=== PATIENT | female | born 1970 | race Caucasian/White ===

== ENCOUNTER 2017-08-18 23:18 | Emergency (ER) | payer BC ==
--- NOTE | 2017-08-18 23:35 | EDPHYS ---
Physician Documentation [facility] Name: Shyann Alicia Age: 47 yrs Sex: Female : 1970 Arrival Date: 08/18/2017 Time: 23:20 Bed 5 Private MD: ED Physician Travis Pandya HPI: 08/19 01:39 This 47 yrs old Female presents to ER via Ambulatory with complaints of Back snw Pain, Neck Pain, <24hrs Old. 01:39 The patient presents with pain that is acute, with no known mechanism of injury. The snw symptoms are located in the "everywhere". Onset: The symptoms/episode began/occurred gradually. The pain does not radiate. Associated signs and symptoms: Pertinent positives: fatigue. The problem was sustained without known cause. Severity of symptoms: At their worst the symptoms were moderate. The patient has experienced similar episodes in the past, chronically, today's symptoms are similar. sees Chiropractor regularly. Historical: - Allergies: 08/18 23:37 No Known Allergies; mg2 - Home Meds: 23:37 None [Active]; mg2 - PMHx: 23:37 Endometrosis; mg2 - PSHx: 23:37 cyst on ovary removed; mg2 - Immunization history:: Flu vaccine is not up to date. - Social history:: Smoking status: Patient/guardian denies using tobacco. ROS: 08/19 01:35 Constitutional: Negative for fever, chills, and weight loss, fatigue and just "hurt all snw over" Eyes: Negative for injury, pain, redness, and discharge, Neck: Negative for injury, pain, and swelling, Cardiovascular: Negative for chest pain, palpitations, and edema, Respiratory: Negative for shortness of breath, cough, wheezing, and pleuritic chest pain, Abdomen/GI: Negative for abdominal pain, nausea, vomiting, diarrhea, and constipation, Back: Negative for injury and pain, : Negative for injury, bleeding, discharge, and swelling, Skin: Negative for injury, rash, and discoloration, Neuro: Negative for headache, weakness, numbness, tingling, and seizure. ENT: Positive for ear pain. MS/extremity: Positive for decreased range of motion, pain, of the from posterior neck all the way down to right leg/foot. Exam: 01:35 Constitutional: This is a well developed, well nourished patient who is awake, alert, snw and in no acute distress. Head/Face: Normocephalic, atraumatic. Eyes: Pupils equal round and reactive to light, extra-ocular motions intact. Lids and lashes normal. Conjunctiva and sclera are non-icteric and not injected. Cornea within normal limits. Periorbital areas with no swelling, redness, or edema. ENT: Nares patent. No nasal discharge, no septal abnormalities noted. Tympanic membrane to right normal, left TM erythematous and fluid filled, and external auditory canals are clear. Oropharynx with no redness, swelling, or masses, exudates, or evidence of obstruction, uvula midline. Mucous membranes moist. Neck: Trachea midline, no thyromegaly or masses palpated, and no cervical lymphadenopathy. Supple, full range of motion without nuchal rigidity, or vertebral point tenderness. No Meningismus. Chest/axilla: Normal chest wall appearance and motion. Nontender with no deformity. No lesions are appreciated. Cardiovascular: Regular rate and rhythm with a normal S1 and S2. No gallops, murmurs, or rubs. Normal PMI, no JVD. No pulse deficits. Respiratory: Lungs have equal breath sounds bilaterally, clear to auscultation and percussion. No rales, rhonchi or wheezes noted. No increased work of breathing, no retractions or nasal flaring. Abdomen/GI: Soft, non-tender, with normal bowel sounds. No distension or tympany. No guarding or rebound. No evidence of tenderness throughout. Back: No spinal tenderness. No costovertebral tenderness. Full range of motion. Skin: Warm, dry with normal turgor. Normal color with no rashes, no lesions, and no evidence of cellulitis. MS/ Extremity: Pulses equal, no cyanosis. Neurovascular intact. Full, normal range of motion but holding herself stiffly on walking to and from exam room Neuro: Awake and alert, GCS 15, oriented to person, place, time, and situation. Cranial nerves II-XII grossly intact. Motor strength 5/5 in all extremities. Sensory grossly intact. Cerebellar exam normal. Normal gait. 01:38 Neuro: Exam negative for acute changes. snw Vital Signs: 08/18 23:39 BP 175 / 97; Pulse 80; Resp 18; Temp 97.9; Pulse Ox 99% ; mg2 [place] Coma Score: 08/19 01:38 Eye Response: spontaneous(4). Verbal Response: oriented(5). Motor Response: obeys snw commands(6). Total: 15. MDM: 08/18 23:33 Patient medically screened. snw 08/19 01:38 Data reviewed: vital signs, nurses notes. Data interpreted: Pulse oximetry: on room air snw is 99 %. Interpretation: normal. Counseling: I had a detailed discussion with the patient and/or guardian regarding: the historical points, exam findings, and any diagnostic results supporting the discharge/admit diagnosis, the presence of at least one elevated blood pressure reading (>120/80) during this emergency department visit, the need for outpatient follow up, to return to the emergency department if symptoms worsen or persist or if there are any questions or concerns that arise at home. Special discussion: I have referred the patient to see his PCP for further evaluation of high blood pressure. Based on the history and exam findings, there is no indication for further emergent testing or inpatient evaluation. I discussed with the patient/guardian the need to see the primary care provider for further evaluation of the symptoms. Administered Medications: 08/18 23:55 Drug: TORadol 60 mg Route: IM; Site: right gluteus; mg2 08/19 00:14 Follow up: Response: No adverse reaction; Medication administered at discharge. mg2 08/18 23:55 Drug: Flexeril 10 mg Route: PO; mg2 08/19 00:13 Follow up: Response: No adverse reaction; Medication administered at discharge. mg2 08/18 23:55 Drug: Zithromax 500 mg Route: PO; mg2 08/19 00:13 Follow up: Response: No adverse reaction; Medication administered at discharge. mg2 Disposition: 02:38 Co-signature as Attending Physician, Travis Pandya MD. rn Disposition: 08/18/17 23:35 Discharged to Home. Impression: Myalgia, Acute serous otitis media, recurrent, left ear. - Condition is Stable. - Discharge Instructions: Serous Otitis Media, Musculoskeletal Pain, Cryotherapy, Heat Therapy. - Prescriptions for Zithromax 500 mg Oral Tablet - take 1 tablet by ORAL route once daily for 5 days; 5 tablet. Diclofenac Sodium 75 mg Oral Tablet, Delayed Release (E.C.) - take 1 tablet by ORAL route 2 times per day as needed for pain; 30 tablet. - Work release form, Medication Reconciliation Form, Thank You Letter, Antibiotic Education, Prescription Opioid Use form. - Follow up: Private Physician; When: 1 - 2 days; Reason: Recheck today's complaints, Continuance of care, Re-evaluation by your physician. Follow up: Emergency Department; When: As needed; Reason: Worsening of condition. Signatures: Juliann Reyes, RN FIELD CASE MANAGER-C RN FIELD CASE MANAGER-Csnw Travis Pandya MD MD rn Brayan Hermosillo RN RN mg2
[2017-08-18] MEDS ORDERED: KETOROLAC 30 MG/ML INJ ONE ×2 (23:47→23:49)
[2017-08-18] MEDS ORDERED: CYCLOBENZAPRINE 10 MG TAB ONE ×2 (23:47→23:48)
--- NOTE | 2017-08-19 00:13 | ER ---
Nurse's Notes [facility] Name: Shyann Alicia Age: 47 yrs Sex: Female : 1970 Arrival Date: 08/18/2017 Time: 23:20 Bed 5 Private MD: Diagnosis: Myalgia;Acute serous otitis media, recurrent, left ear Presentation: 08/18 23:31 Presenting complaint: Patient states: she woke up this morning with a pain in her neck mg2 radiating to the right leg. no prior history of trauma. States, "Normally I go to the chiropractor for this but it's Saturday and they're closed,.". Transition of care: patient was not received from another setting of care. Onset of symptoms was August 18, 2017 at 07:00. Initial Sepsis Screen: Does the patient meet any 2 criteria? No. Patient's initial sepsis screen is negative. Does the patient have a suspected source of infection? No. Patient's initial sepsis screen is negative. Care prior to arrival: None. 23:31 Method Of Arrival: Ambulatory mg2 23:31 Acuity: LONG 4 mg2 Triage Assessment: 23:58 General: Behavior is calm, cooperative. mg2 Historical: - Allergies: 23:37 No Known Allergies; mg2 - Home Meds: 23:37 None [Active]; mg2 - PMHx: 23:37 Endometrosis; mg2 - PSHx: 23:37 cyst on ovary removed; mg2 - Immunization history:: Flu vaccine is not up to date. - Social history:: Smoking status: Patient/guardian denies using tobacco. Screenin:56 Abuse screen: Denies threats or abuse. Denies injuries from another. Nutritional mg2 screening: No deficits noted. Tuberculosis screening: No symptoms or risk factors identified. Fall Risk None identified. Assessment: 23:40 General: Appears in no apparent distress. comfortable. Pain: Complains of pain in neck mg2 radiating to the right leg Pain radiates to right leg Quality of pain is described as aching, Pain began upon waking up Is continuous, Alleviated by medications. Neuro: Level of Consciousness is awake, alert, obeys commands, Oriented to person, place, time, situation. Cardiovascular: Patient's skin is warm and dry. Respiratory: Airway is patent Respiratory effort is even, unlabored, Respiratory pattern is regular, symmetrical. GI: No signs and/or symptoms were reported involving the gastrointestinal system. : No signs and/or symptoms were reported regarding the genitourinary system. EENT: No signs and/or symptoms were reported regarding the EENT system. Derm: No signs and/or symptoms reported regarding the dermatologic system. Musculoskeletal: Musculoskeletal: Circulation, motion, and sensation intact. Capillary refill < 3 seconds, Range of motion: intact in all extremities, Reports pain in neck since morning. 08/19 00:09 Reassessment: Patient appears in no apparent distress at this time. Patient is alert, mg2 oriented x 3, equal unlabored respirations, skin warm/dry/pink. Discussed d/c \\T\\ f/u instructions with pt; denies questions or concerns at this time. Vital Signs: 08/18 23:39 BP 175 / 97; Pulse 80; Resp 18; Temp 97.9; Pulse Ox 99% ; mg2 Kelin Coma Score: 08/19 01:38 Eye Response: spontaneous(4). Verbal Response: oriented(5). Motor Response: obeys snw commands(6). Total: 15. ED Course: 08/18 23:20 Patient arrived in ED. am2 23:29 Juliann Reyes FNP-C [facility] snw 23:29 Travis Pandya MD is Attending Physician. snw 23:31 Brayan Hermosillo, BABATUNDE is Primary Nurse. mg2 23:35 Triage completed. mg2 23:56 Patient has correct armband on for positive identification. Noise minimized. mg2 23:57 No provider procedures requiring assistance completed. mg2 08/19 00:12 Patient did not have IV access during this emergency room visit. mg2 Administered Medications: 08/18 23:55 Drug: TORadol 60 mg Route: IM; Site: right gluteus; mg2 08/19 00:14 Follow up: Response: No adverse reaction; Medication administered at discharge. mg2 08/18 23:55 Drug: Flexeril 10 mg Route: PO; mg2 08/19 00:13 Follow up: Response: No adverse reaction; Medication administered at discharge. mg2 08/18 23:55 Drug: Zithromax 500 mg Route: PO; mg2 08/19 00:13 Follow up: Response: No adverse reaction; Medication administered at discharge. mg2 Outcome: 08/18 23:35 Discharge ordered by . snw 08/19 00:12 Discharged to home ambulatory. mg2 Condition: good Discharge instructions given to patient, Instructed on discharge instructions, follow up and referral plans. medication usage, Demonstrated understanding of instructions, follow-up care, medications, Prescriptions given X 2. 00:13 Patient left the ED. mg2 Signatures: Juliann Reyes, BISCUIT FACTORY WORKER-C BISCUIT FACTORY WORKER-Csnw Inessa Pham am2 Brayan Hermosillo RN RN mg2 Corrections: (The following items were deleted from the chart) 08/18 23:44 23:40 Musculoskeletal: mg2 mg2
== END 2017-08-19 00:13 | disposition home or self-care (01) ==
LOC: ER 23:18
DX: M79.1 Myalgia (principal); H65.02 Acute serous otitis media, left ear
CPT/HCPCS: 96372; 99283

== ENCOUNTER 2017-08-30 14:06 | Emergency (ER) | payer BC ==
[2017-08-30 17:27] LABS: Absolute Monocytes 0.5 K/uL (0.1-1.3); Absolute Neutrophil 4.3 K/uL (1.8-8.0); Basophils % 0.6 % (0-1.3); Eosinophils % 3.5 % (0-4.4); Lymphocytes % 28.5 % (15.3-44.8); MCH 30.2 pg (27.0-35.0); MPV 9.8 fL (7.6-11.3); Monocytes % 6.9 % (3.3-12.3); RBC Red Blood Cell Count 4.61 M/uL (3.86-4.86)
[2017-08-30 17:36] LABS: Bicarbonate 29 mEq/L (21-31); Glucose Level 89 mg/dL (65-120); Lipase 23 U/L (22-51); Potassium 3.7 mEq/L (3.6-5.0); Sodium Level 140 mEq/L (135-145)
[2017-08-30 17:42] LABS: ALT/SGPT 27 IU/L (10-60); AST/SGOT 25 IU/L (10-42); Albumin 4.2 g/dL (3.2-5.5); Alkaline Phosphatase 78 IU/L (42-121); Amylase Level 46 U/L (28-100); BUN Blood Urea Nitrogen 12 mg/dL (6-20); Bilirubin Direct < 0.1 mg/dL (0-0.2); Bilirubin Total 0.4 mg/dL (0.3-1.2); Protein, Total 7.1 g/dL (6.0-8.3)
[2017-08-30 17:56] LABS: HCG, Quantitative < 5.0 mIU/mL (<5)
[2017-08-30] MEDS ORDERED: MAGNE/ALUM HYDROXD 30 ML UCUP ONE (18:16)
[2017-08-30] MEDS ORDERED: LIDOCAINE VISCOUS 2% SOLN 15 ML UDC ONE (18:16)
[2017-08-30] MEDS ORDERED: PANTOPRAZOLE 40 MG INJ ONE (19:26)
--- NOTE | 2017-08-30 20:52 | EDPHYS ---
Physician Documentation [facility] Name: Shyann Alicia Age: 47 yrs Sex: Female : 1970 Arrival Date: 08/30/2017 Time: 14:09 Bed 15 Private MD: Dario Oviedo R ED Physician James Dash HPI: 08/30 20:09 This 47 yrs old Female presents to ER via Ambulatory with complaints of Chest kb Tightness. 20:09 The patient presents with abdominal pain in the right upper quadrant. Onset: The kb symptoms/episode began/occurred 2 week(s) ago. The symptoms radiate to mid-sternal area and epigastric area. Associated signs and symptoms: none. The symptoms are described as burning. Modifying factors: The symptoms are alleviated by nothing, the symptoms are aggravated by certain foods. Severity of pain: At its worst the pain was moderate in the emergency department the pain is unchanged. The patient has experienced similar episodes in the past, chronically. The patient has not recently seen a physician. Pt states she has had RUQ pain that radiates to epigastric area and up throat for 2 weeks and it has been getting worse. States she has had this several times in the past and last time she came here they gave her a cocktail that helped the pain. States the GERD medication that is OTC doesn't work very well and she would like a prescription for Protonix. 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 - Social history:: Smoking status: Patient/guardian denies using tobacco. ROS: 20:07 Constitutional: Negative for fever, chills, and weight loss, Cardiovascular: Negative kb for chest pain, palpitations, and edema, Respiratory: Negative for shortness of breath, cough, wheezing, and pleuritic chest pain, Back: Negative for injury and pain, : Negative for injury, bleeding, discharge, and swelling, MS/Extremity: Negative for injury and deformity, Skin: Negative for injury, rash, and discoloration, Neuro: Negative for headache, weakness, numbness, tingling, and seizure. 20:07 Abdomen/GI: Positive for Negative for nausea, vomiting, and diarrhea, constipation, abdominal cramps, abdominal distension, anorexia. Exam: 20:07 Constitutional: This is a well developed, well nourished patient who is awake, alert, kb and in no acute distress. Head/Face: Normocephalic, atraumatic. ENT: Nares patent. No nasal discharge, no septal abnormalities noted. Tympanic membranes are normal and external auditory canals are clear. Oropharynx with no redness, swelling, or masses, exudates, or evidence of obstruction, uvula midline. Mucous membranes moist. Neck: Trachea midline, no thyromegaly or masses palpated, and no cervical lymphadenopathy. Supple, full range of motion without nuchal rigidity, or vertebral point tenderness. No Meningismus. Chest/axilla: Normal chest wall appearance and motion. Nontender with no deformity. No lesions are appreciated. Cardiovascular: Regular rate and rhythm with a normal S1 and S2. No gallops, murmurs, or rubs. Normal PMI, no JVD. No pulse deficits. Respiratory: Lungs have equal breath sounds bilaterally, clear to auscultation and percussion. No rales, rhonchi or wheezes noted. No increased work of breathing, no retractions or nasal flaring. Abdomen/GI: Soft, non-tender, with normal bowel sounds. No distension or tympany. No guarding or rebound. No evidence of tenderness throughout. Back: No spinal tenderness. No costovertebral tenderness. Full range of motion. Skin: Warm, dry with normal turgor. Normal color with no rashes, no lesions, and no evidence of cellulitis. MS/ Extremity: Pulses equal, no cyanosis. Neurovascular intact. Full, normal range of motion. Neuro: Awake and alert, GCS 15, oriented to person, place, time, and situation. Cranial nerves II-XII grossly intact. Motor strength 5/5 in all extremities. Sensory grossly intact. Cerebellar exam normal. Normal gait. Vital Signs: 14:17 BP 133 / 77; Pulse 75; Resp 17; Temp 98.0; Pulse Ox 98% on R/A; Weight 99.34 kg; Height aj 5 ft. 6 in. (167.64 cm); 17:24 BP 118 / 75; Pulse 78; Resp 17; Pulse Ox 98% on R/A; mh5 18:30 BP 127 / 72; Pulse 76; Resp 18; Pulse Ox 99% on R/A; ph 19:29 BP 114 / 74; Pulse 74; Resp 16; Pulse Ox 100% on R/A; Pain 0/10; ao 20:18 BP 116 / 72; Pulse 76; Resp 18; Pulse Ox 99% on R/A; Pain 0/10; ao 14:17 Body Mass Index 35.35 (99.34 kg, 167.64 cm) aj MDM: 16:11 Patient medically screened. kb 20:08 Data reviewed: vital signs, nurses notes. Data interpreted: Pulse oximetry: on room air kb is 100 %. Interpretation: normal. Counseling: I had a detailed discussion with the patient and/or guardian regarding: the historical points, exam findings, and any diagnostic results supporting the discharge/admit diagnosis, lab results, the need for outpatient follow up, a family practitioner, to return to the emergency department if symptoms worsen or persist or if there are any questions or concerns that arise at home. 08/30 16:21 Order name: Amylase, Serum; Complete Time: 18:04 kb 08/30 16:21 Order name: Basic Metabolic Panel; Complete Time: 18:04 kb 08/30 16:21 Order name: CBC with Diff; Complete Time: 17:36 kb 08/30 16:21 Order name: Hepatic Function; Complete Time: 18:04 kb 08/30 16:21 Order name: Lipase; Complete Time: 18:04 kb 08/30 16:21 Order name: Troponin (emerg Dept Use Only); Complete Time: 17:44 kb 08/30 16:21 Order name: EKG; Complete Time: 16:22 kb 08/30 16:21 Order name: Quantitative Hcg; Complete Time: 18:04 kb 08/30 18:47 Order name: Troponin (emerg Dept Use Only) kb 08/30 18:48 Order name: Troponin (Emerg Dept Use Only); Complete Time: 20:51 EDMS 08/30 20:48 Order name: Urine Dipstick--Ancillary (enter results) cc 08/30 20:49 Order name: Urine Dipstick-Ancillary EDMS 08/30 16:21 Order name: IV Saline Lock; Complete Time: 19:55 kb 08/30 16:21 Order name: Labs collected and sent; Complete Time: 19:55 kb 08/30 16:21 Order name: Urine Dipstick-Ancillary (obtain specimen); Complete Time: 20:47 kb 08/30 16:21 Order name: EKG - Nurse/Tech; Complete Time: 18:21 kb 08/30 18:47 Order name: EKG - Nurse/Tech; Complete Time: 19:53 kb 08/30 18:47 Order name: EKG; Complete Time: 18:48 kb Administered Medications: 18:35 Drug: GI Cocktail without - (Maalox Suspension 30 ml, Lidocaine Liquid 2 % 15 ph ml) Route: PO; 19:16 Follow up: Response: No adverse reaction ph 19:32 Drug: ProTONIX 40 mg Route: IVP; Site: right antecubital; ao 20:36 Follow up: Response: No adverse reaction ao Disposition: 08/30/17 20:51 Discharged to Home. Impression: Gastro-esophageal reflux disease. - Condition is Stable. - Discharge Instructions: Gastroesophageal Reflux Disease, Adult. - Prescriptions for Protonix 40 mg Oral Tablet - take 1 tablet by ORAL route once daily; 30 tablet. - Medication Reconciliation Form, Thank You Letter, Antibiotic Education, Prescription Opioid Use form. - Follow up: Emergency Department; When: As needed; Reason: Worsening of condition. Follow up: Private Physician; When: 2 - 3 days; Reason: Recheck today's complaints, Continuance of care, Re-evaluation by your physician. Addendum: 09/02/2017 08:52 Co-signature as Attending Physician, James Dash MD I agree with the assessment and c flynn plan of care. Signatures: Dispatcher [employer] Odette Gruber, MUD WORKER-C MUD WORKER-Ckb Inessa Lepe RN RN aj Anderson, Corey, MD MD cha Hall, Patricia, RN RN ph Ortiz, Alex, RN RN ao Corrections: (The following items were deleted from the chart) 08/30 21:00 20:51 08/30/2017 20:51 Discharged to Home. Impression: Gastro-esophageal reflux ao disease. Condition is Stable. Discharge Instructions: Gastroesophageal Reflux Disease, Adult. Prescriptions for Protonix 40 mg Oral Tablet - take 1 tablet by ORAL route once daily; 30 tablet. and Forms are Medication Reconciliation Form, Thank You Letter, Antibiotic Education, Prescription Opioid Use. Follow up: Emergency Department; When: As needed; Reason: Worsening of condition. Follow up: Private Physician; When: 2 - 3 days; Reason: Recheck today's complaints, Continuance of care, Re-evaluation by your physician. kb
--- NOTE | 2017-08-30 20:52 | ER ---
Nurse's Notes [facility] Name: Shyann Alicia Age: 47 yrs Sex: Female : 1970 Arrival Date: 08/30/2017 Time: 14:09 Bed 15 Private MD: Dario Oviedo R Diagnosis: Gastro-esophageal reflux disease Presentation: 08/30 14:15 Presenting complaint: Patient states: Esophageal burning that moves to RUQ that started aj today, states "it feels like indigestion." Patient reports sensation feels like tightness and burning. Transition of care: patient was not received from another setting of care. Onset of symptoms was August 30, 2017. Initial Sepsis Screen: Does the patient meet any 2 criteria? No. Patient's initial sepsis screen is negative. Does the patient have a suspected source of infection? No. Patient's initial sepsis screen is negative. Care prior to arrival: None. 14:15 Method Of Arrival: Ambulatory 14:15 Acuity: LONG 3 aj Triage Assessment: 14:17 General: Appears in no apparent distress. comfortable, Behavior is calm, cooperative, aj appropriate for age. Pain: Complains of pain in chest. Neuro: Level of Consciousness is awake, alert, obeys commands, Oriented to person, place, time, situation. Cardiovascular: Capillary refill < 3 seconds in bilateral fingers Patient's skin is warm and dry. Respiratory: Airway is patent Respiratory effort is even, unlabored, Respiratory pattern is regular, symmetrical. GI: Reports upper abdominal pain, epigastric pain, gaseousness, indigestion. Derm: Skin is intact, is healthy with good turgor, Skin is pink, warm \\T\\ dry. normal. 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 - Social history:: Smoking status: Patient/guardian denies using tobacco. Screenin:27 Abuse screen: Denies threats or abuse. Denies injuries from another. Nutritional iw screening: No deficits noted. Tuberculosis screening: No symptoms or risk factors identified. 17:34 Fall Risk None identified. ph Assessment: 16:19 General: Appears in no apparent distress. Behavior is calm, cooperative. iw 16:26 Pain: Complains of pain in diaphragm, right breast and left breast Pain radiates to iw abdomen Pain Quality of pain is described as burning, Pain began. Neuro: Level of Consciousness is awake, alert, obeys commands, Oriented to person, place, time, situation. Cardiovascular: Patient's skin is warm and dry. Respiratory: Respiratory effort is even, unlabored, Respiratory pattern is regular, symmetrical. GI: Abdomen is non-distended, obese, Reports epigastric pain. Derm: Skin is pink, warm \\T\\ dry. normal. Musculoskeletal: Range of motion: intact in all extremities. 17:33 Reassessment: Patient appears in no apparent distress at this time. Patient and/or ph family updated on plan of care and expected duration. Pain level reassessed. Patient is alert, oriented x 3, equal unlabored respirations, skin warm/dry/pink. Pt resting quietly, awaiting lab results. 18:36 Reassessment: Patient appears in no apparent distress at this time. Patient and/or ph family updated on plan of care and expected duration. Pain level reassessed. Patient is alert, oriented x 3, equal unlabored respirations, skin warm/dry/pink. 19:29 General: Appears in no apparent distress. comfortable, Behavior is calm, cooperative. ao Pain: Denies pain. Neuro: Level of Consciousness is awake, alert, obeys commands, Oriented to person, place, time, situation, Appropriate for age Moves all extremities. Speech is normal, Pupils are PERRLA. Cardiovascular: Patient's skin is warm and dry. Respiratory: Airway is patent Respiratory effort is even, unlabored, Respiratory pattern is regular, symmetrical. GI: Abdomen is obese. : No signs and/or symptoms were reported regarding the genitourinary system. EENT: No signs and/or symptoms were reported regarding the EENT system. Derm: No signs and/or symptoms reported regarding the dermatologic system. Skin is pink, warm \\T\\ dry. normal, Skin temperature is warm. Musculoskeletal: Range of motion: intact in all extremities. 20:18 Reassessment: Patient appears in no apparent distress at this time. Patient and/or ao family updated on plan of care and expected duration. Pain level reassessed. Patient is alert, oriented x 3, equal unlabored respirations, skin warm/dry/pink. Troponin was send. Was told by day shift that it was done and called lab they stated they never received. It was send back again. Provider and patient had been notified of waiting time. 20:58 Reassessment: Patient Dc home ambulatory. Patient understand the POC and to follow up ao with PCP. Patient was upset with the time taken to be discharge. Vital Signs: 14:17 BP 133 / 77; Pulse 75; Resp 17; Temp 98.0; Pulse Ox 98% on R/A; Weight 99.34 kg; Height aj 5 ft. 6 in. (167.64 cm); 17:24 BP 118 / 75; Pulse 78; Resp 17; Pulse Ox 98% on R/A; mh5 18:30 BP 127 / 72; Pulse 76; Resp 18; Pulse Ox 99% on R/A; ph 19:29 BP 114 / 74; Pulse 74; Resp 16; Pulse Ox 100% on R/A; Pain 0/10; ao 20:18 BP 116 / 72; Pulse 76; Resp 18; Pulse Ox 99% on R/A; Pain 0/10; ao 14:17 Body Mass Index 35.35 (99.34 kg, 167.64 cm) aj ED Course: 14:09 Patient arrived in ED. mr 14:09 Dario Oviedo MD is Private Physician. mr 14:17 Triage completed. aj 14:17 Arm band placed on left wrist. Patient placed in waiting room, Patient notified of wait aj time. EKG completed in triage. Results shown to MD. 16:11 Odette French FNP-C is PHCP. kb 16:11 James Dash MD is Attending Physician. kb 16:23 Clara Skinner, BABATUNDE is Primary Nurse. ph 17:33 Patient has correct armband on for positive identification. Placed in gown. Bed in low ph position. Call light in reach. Side rails up X 1. residential monitor on. Pulse ox on. NIBP on. Warm blanket given. 17:34 Patient maintains SpO2 saturation greater than 95% on room air. ph 17:35 Initial lab(s) drawn, by me, sent to lab. Inserted saline lock: 20 gauge in right mh5 antecubital area, using aseptic technique. Blood collected. 18:39 No provider procedures requiring assistance completed. ph 19:45 EKG done, by ED staff, reviewed by Odette BENITES. eb 20:36 Troponin (emerg Dept Use Only) Sent. ao 20:58 IV discontinued, intact, bleeding controlled, No redness/swelling at site. Pressure ao dressing applied. Administered Medications: 18:35 Drug: GI Cocktail without - (Maalox Suspension 30 ml, Lidocaine Liquid 2 % 15 ph ml) Route: PO; 19:16 Follow up: Response: No adverse reaction ph 19:32 Drug: ProTONIX 40 mg Route: IVP; Site: right antecubital; ao 20:36 Follow up: Response: No adverse reaction ao Outcome: 20:51 Discharge ordered by . kb 20:58 Discharged to home ambulatory. ao 20:58 Condition: stable 20:58 Discharge instructions given to patient, Instructed on discharge instructions, follow up and referral plans. Demonstrated understanding of instructions, follow-up care, medications, Prescriptions given X 1. 21:00 Patient left the ED. ao Signatures: Odette French, KAMARI MEDEROS-Inessa Hardin, RN RN Bryanna Padilla Irene, RN Clara Echavarria RN RN Fer Jones, RN Bryanna [facility] Angela Manriquez Corrections: (The following items were deleted from the chart) 16:27 16:19 General: Appears in no apparent distress. Behavior is calm, cooperative, iw iw
[2017-08-30 21:19] LABS: Urine Blood NEGATIVE (NEG); Urine Glucose NEGATIVE (NEG); Urine Protein NEGATIVE (NEG); Urine Specific Gravity 1.015 (1.005-1.030)
--- NOTE | 2017-08-31 06:57 | EKG ---
Test Date: 2017-08-30 Test Time: 19:45:54 Turning Sander Operator: YANELY MEASUREMENT RESULTS: Intervals: Rate: 59 FL: 168 QRSD: 90 QT: 418 QTc: 413 Merrill: P: 58 FL: 168 QRS: 86 T: 29 INTERPRETIVE STATEMENTS: Sinus bradycardia Otherwise normal ECG Compared to ECG 07/28/2016 15:13:05 Sinus rhythm no longer present Electronically Signed On 08-31-17 06:57:22 CDT by Bebeto Kim
--- NOTE | 2017-09-01 15:26 | EKG ---
Test Date: 2017-08-30 Test Time: 16:26:29 Environmental Laboratory Technician: JEFERSON MEASUREMENT RESULTS: Intervals: Rate: 63 AL: 162 QRSD: 92 QT: 410 QTc: 419 Heber: P: 40 AL: 162 QRS: 56 T: 27 INTERPRETIVE STATEMENTS: Normal sinus rhythm Normal ECG Compared to ECG 07/28/2016 15:13:05 No significant changes Electronically Signed On 09-01-17 15:24:47 CDT by Bebeto Kim
== END 2017-08-30 21:00 | disposition home or self-care (01) ==
LOC: ER 14:06
DX: K21.9 Gastro-esophageal reflux disease without esophagitis (principal); I10 Essential (primary) hypertension
CPT/HCPCS: 36415; 80048; 80076; 81003; 82150; 83690; 84484; 84702; 85025; 93005; 96374; 99285; C9113

== ENCOUNTER 2017-11-02 14:33 | Emergency (ER) | payer BC ==
[2017-11-02] MEDS ORDERED: KETOROLAC 30 MG/ML INJ ONE (15:48)
--- NOTE | 2017-11-02 15:48 | EDPHYS ---
Physician Documentation [facility] Name: Shyann Alicia Age: 47 yrs Sex: Female : 1970 Arrival Date: 11/02/2017 Time: 14:35 Bed 23 Private MD: ED Physician James Dash HPI: 11/02 15:40 This 47 yrs old Female presents to ER via Ambulatory with complaints of Back cp Pain. 15:40 The patient presents with pain that is acute, with no known mechanism of injury, and cp tenderness. The symptoms are located in the left low back. Onset: The symptoms/episode began/occurred 1 week(s) ago. The pain does not radiate. Associated signs and symptoms: Pertinent positives: intermittent numbness of left foot and left hand, Pertinent negatives: abdominal pain, constipation, dysuria, fever, incontinence, urinary retention, weakness. Historical: - Allergies: 15:09 No Known Allergies; sv - Home Meds: 15:09 valsartan Oral [Active]; Protonix Oral [Active]; sv - PMHx: 15:09 GERD; Hypertension; sv - PSHx: 15:09 None; sv - Immunization history:: Adult Immunizations up to date. - Social history:: Smoking status: Patient/guardian denies using tobacco. - Ebola Screening: : No symptoms or risks identified at this time. ROS: 15:41 Eyes: Negative for injury, pain, redness, and discharge. cp 15:41 Constitutional: Negative for body aches, chills, fever, poor PO intake. 15:41 ENT: Negative for drainage from ear(s), ear pain, sore throat, difficulty swallowing, difficulty handling secretions. 15:41 Neck: Negative for pain with movement, pain at rest, stiffness, tenderness, bony tenderness. 15:41 Cardiovascular: Negative for chest pain, edema, palpitations. 15:41 Respiratory: Negative for cough, shortness of breath, wheezing. 15:41 Abdomen/GI: Negative for abdominal pain, nausea, vomiting, and diarrhea, constipation, bowel incontinence. 15:41 Back: Positive for pain at rest, of the left low back, Negative for injury or acute deformity. 15:41 : Negative for urinary symptoms, bladder incontinence. 15:41 Skin: Negative for cellulitis, rash. 15:41 Neuro: Positive for intermittent numbness of left hand and left foot, Negative for altered mental status, gait disturbance, headache, weakness, saddle anesthesia. 15:41 All other systems are negative. Exam: 15:44 Head/Face: Normocephalic, atraumatic. cp 15:44 Constitutional: The patient appears in no acute distress, alert, awake, non-diaphoretic, non-toxic, well developed, well nourished. 15:44 Eyes: Periorbital structures: appear normal, Conjunctiva: normal, no exudate, no injection, Lids and lashes: appear normal, bilaterally. 15:44 ENT: External ear(s): are unremarkable, Nose: is normal, Mouth: is normal, Posterior pharynx: is normal, airway is patent, no erythema, no exudate. 15:44 Neck: ROM/movement: is normal, is supple, without pain, no range of motions limitations, no nuchal rigidity. 15:44 Chest/axilla: Inspection: normal. 15:44 Cardiovascular: Rate: normal. 15:44 Respiratory: the patient does not display signs of respiratory distress, Respirations: normal, no use of accessory muscles, no retractions, no splinting, no tachypnea, labored breathing, is not present. 15:44 Abdomen/GI: Exam negative for discomfort, distension, guarding, Inspection: abdomen appears normal. 15:44 Back: pain, that is mild, of the left low back, ROM is painful, vertebral tenderness, is not appreciated. 15:44 Musculoskeletal/extremity: Exam is negative for bony tenderness, decreased range of motion, deformity, injury. 15:44 Skin: cellulitis, is not appreciated, no rash present. 15:44 Neuro: Orientation: to person, place \T\ time. Cerebellar function: is grossly normal, Motor: moves all fours, strength is normal, Gait: is steady. Vital Signs: 15:10 BP 115 / 79; Pulse 65; Resp 20; Temp 97.4; Pulse Ox 98% ; Weight 99.79 kg; Height 5 ft. sv 6 in. (167.64 cm); Pain 10/10; 15:10 Body Mass Index 35.51 (99.79 kg, 167.64 cm) sv MDM: 15:19 Patient medically screened. cp 15:30 Differential diagnosis: sciatica, spinal stenosis, cauda equina. cp 15:46 Data reviewed: vital signs, nurses notes, and as a result, I will discharge patient. 15:46 Counseling: I had a detailed discussion with the patient and/or guardian regarding: the cp historical points, exam findings, and any diagnostic results supporting the discharge/admit diagnosis, the need for outpatient follow up, a family practitioner, to return to the emergency department if symptoms worsen or persist or if there are any questions or concerns that arise at home. 11/02 15:51 Order name: Urine Dipstick--Ancillary (enter results) eb 11/02 15:51 Order name: Urine --Ancillary (enter results) eb 11/02 15:29 Order name: Urine Dipstick-Ancillary (obtain specimen); Complete Time: 15:45 cp 11/02 15:29 Order name: Urine Test (obtain specimen); Complete Time: 15:45 cp Administered Medications: 15:49 Drug: TORadol 60 mg Route: IM; Site: right deltoid; rv 16:08 Follow up: Response: No adverse reaction; Pain is decreased rv Disposition: 11/03 06:41 Co-signature as Attending Physician, James Dash MD I agree with the assessment and [facility] plan of care. Disposition: 11/02/17 15:47 Discharged to Home. Impression: Sciatica, left side. - Condition is Stable. - Discharge Instructions: Sciatica. - Prescriptions for Cyclobenzaprine 10 mg Oral Tablet - take 1 tablet by ORAL route every 8 hours As needed no driving while taking medication; 20 tablet. Medrol (Brock) 4 mg Oral Tablets, Dose Pack - take 1 tablet by ORAL route as directed - follow package instructions; 1 packet. - Work release form, Medication Reconciliation Form, Thank You Letter, Antibiotic Education, Prescription Opioid Use form. - Follow up: Private Physician; When: 2 - 3 days; Reason: Recheck today's complaints. - Problem is new. - Symptoms have improved. Signatures: Dispatcher [employer] Padmini Caldera RN James Mack MD MD cha Page, Corey, PA PA cp Vicente, Ronaldo, RN RN rv Corrections: (The following items were deleted from the chart) 11/02 16:09 15:47 11/02/2017 15:47 Discharged to Home. Impression: Sciatica, left side. Condition rv is Stable. Forms are Medication Reconciliation Form, Thank You Letter, Antibiotic Education, Prescription Opioid Use. Follow up: Private Physician; When: 2 - 3 days; Reason: Recheck today's complaints. Problem is new. Symptoms have improved. cp
--- NOTE | 2017-11-02 15:48 | ER ---
Nurse's Notes [facility] Name: Shyann Alicia Age: 47 yrs Sex: Female : 1970 Arrival Date: 11/02/2017 Time: 14:35 Bed 23 Private MD: Diagnosis: Sciatica, left side Presentation: 11/02 15:08 Presenting complaint: Patient states: left low back pain, numbness to left foot and sv hand reported. Pt reports her back went out last week. Transition of care: patient was not received from another setting of care. Onset of symptoms was October 2017. Care prior to arrival: None. 15:08 Method Of Arrival: Ambulatory sv 15:08 Acuity: LONG 4 sv Historical: - Allergies: 15:09 No Known Allergies; sv - Home Meds: 15:09 valsartan Oral [Active]; Protonix Oral [Active]; sv - PMHx: 15:09 GERD; Hypertension; sv - PSHx: 15:09 None; sv - Immunization history:: Adult Immunizations up to date. - Social history:: Smoking status: Patient/guardian denies using tobacco. - Ebola Screening: : No symptoms or risks identified at this time. Assessment: 16:07 General: Appears in no apparent distress. comfortable, Behavior is calm, cooperative. rv Pain: Complains of pain in back Pain currently is 10 out of 10 on a pain scale. Neuro: Level of Consciousness is awake, alert, obeys commands, Oriented to person, place, time, situation. Cardiovascular: Heart tones S1 S2 present. Respiratory: Airway is patent. GI: No signs and/or symptoms were reported involving the gastrointestinal system. : No signs and/or symptoms were reported regarding the genitourinary system. EENT: No signs and/or symptoms were reported regarding the EENT system. Derm: Skin is intact. Vital Signs: 15:10 BP 115 / 79; Pulse 65; Resp 20; Temp 97.4; Pulse Ox 98% ; Weight 99.79 kg; Height 5 ft. sv 6 in. (167.64 cm); Pain 10/10; 15:10 Body Mass Index 35.51 (99.79 kg, 167.64 cm) sv ED Course: 14:35 Patient arrived in ED. as 15:09 Triage completed. sv 15:09 Arm band placed on left wrist. sv 15:19 [facility]. cp 15:19 James Dash MD is Attending Physician. cp Administered Medications: 15:49 Drug: TORadol 60 mg Route: IM; Site: right deltoid; rv 16:08 Follow up: Response: No adverse reaction; Pain is decreased rv Outcome: 15:47 Discharge ordered by . cp 16:09 Patient left the ED. rv Signatures: Padmini Arguello RN RN sv Anay Guzman as James Alamo PA PA cp Iron Dawn RN RN rv Corrections: (The following items were deleted from the chart) 15:11 15:10 Pulse 65bpm; Resp 20bpm; Pulse Ox 98%; Temp 97.4F; 99.79 kg; Height 5 ft. 6 in.; sv BMI: 35.5; Pain 10/10; sv
[2017-11-02 15:56] LABS: Urine Blood NEGATIVE (NEG); Urine Glucose NEGATIVE (NEG); Urine Protein NEGATIVE (NEG)
== END 2017-11-02 16:09 | disposition home or self-care (01) ==
LOC: ER 14:33
DX: M54.32 Sciatica, left side (principal); I10 Essential (primary) hypertension
CPT/HCPCS: 81003; 81025; 96372; 99282

== ENCOUNTER 2017-12-07 08:31 | Emergency (ER) | payer BC ==
--- NOTE | 2017-12-07 08:59 | EDPHYS ---
Physician Documentation [facility] Name: Shyann Alicia Age: 47 yrs Sex: Female : 1970 Arrival Date: 12/07/2017 Time: 08:37 Bed 18 Private MD: ED Physician Eduard Gray HPI: 12/07 08:56 This 47 yrs old Female presents to ER via Ambulatory with complaints of High kb Blood Pressure. 08:56 The patient has elevated blood pressure and discovered this at home. Onset: The kb symptoms/episode began/occurred 2 day(s) ago. Modifying factors: The symptoms are aggravated by discontinuation of meds, Valsartan. Associated signs and symptoms: Pertinent positives: dizziness, headache, Pertinent negatives: chest pain, dyspnea, lightheadedness, nausea, visual changes, vomiting, weakness. Severity of symptoms: At its worst the blood pressure was 190 mm Hg, in the emergency department the blood pressure is improved. The patient has not experienced similar symptoms in the past. The patient has not recently seen a physician. Pt states she normally takes valsartan daily. Got a call from the pharmacy on Saturday saying to stop medication because it was recalled. Pt states her bp has been fluctuating, highest of 190 systolic. States she gets dizzy and a headache when it is up that high. Will follow up with Dr Oviedo next week, but wants something to keep her bp down until then. . 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 - Social history:: Smoking status: Patient/guardian denies using tobacco. - Ebola Screening: : Patient negative for fever greater than or equal to 101.5 degrees Fahrenheit, and additional compatible Ebola Virus Disease symptoms Patient denies exposure to infectious person Patient denies travel to an Ebola-affected area in the 21 days before illness onset No symptoms or risks identified at this time. ROS: 08:56 Constitutional: Negative for fever, chills, and weight loss, Cardiovascular: Negative kb for chest pain, palpitations, and edema, Respiratory: Negative for shortness of breath, cough, wheezing, and pleuritic chest pain, Abdomen/GI: Negative for abdominal pain, nausea, vomiting, diarrhea, and constipation, MS/Extremity: Negative for injury and deformity, Skin: Negative for injury, rash, and discoloration. 08:56 Neuro: Positive for dizziness, headache, symptoms when bp is high. Exam: 08:56 Constitutional: This is a well developed, well nourished patient who is awake, alert, kb and in no acute distress. Head/Face: Normocephalic, atraumatic. Eyes: Pupils equal round and reactive to light, extra-ocular motions intact. Lids and lashes normal. Conjunctiva and sclera are non-icteric and not injected. Cornea within normal limits. Periorbital areas with no swelling, redness, or edema. ENT: Nares patent. No nasal discharge, no septal abnormalities noted. Tympanic membranes are normal and external auditory canals are clear. Oropharynx with no redness, swelling, or masses, exudates, or evidence of obstruction, uvula midline. Mucous membranes moist. Chest/axilla: Normal chest wall appearance and motion. Nontender with no deformity. No lesions are appreciated. Cardiovascular: Regular rate and rhythm with a normal S1 and S2. No gallops, murmurs, or rubs. Normal PMI, no JVD. No pulse deficits. Respiratory: Lungs have equal breath sounds bilaterally, clear to auscultation and percussion. No rales, rhonchi or wheezes noted. No increased work of breathing, no retractions or nasal flaring. Abdomen/GI: Soft, non-tender, with normal bowel sounds. No distension or tympany. No guarding or rebound. No evidence of tenderness throughout. Skin: Warm, dry with normal turgor. Normal color with no rashes, no lesions, and no evidence of cellulitis. MS/ Extremity: Pulses equal, no cyanosis. Neurovascular intact. Full, normal range of motion. Neuro: Awake and alert, GCS 15, oriented to person, place, time, and situation. Cranial nerves II-XII grossly intact. Motor strength 5/5 in all extremities. Sensory grossly intact. Cerebellar exam normal. Normal gait. Vital Signs: 08:49 BP 146 / 76; Pulse 80; Resp 18; Pulse Ox 97% on R/A; Weight 99.79 kg; Height 5 ft. 6 em in. (167.64 cm); Pain 0/10; 09:15 BP 136 / 79; Pulse 78; Resp 16; Pulse Ox 99% on R/A; em 08:49 Body Mass Index 35.51 (99.79 kg, 167.64 cm) em MDM: 08:39 Patient medically screened. kb 08:54 Data reviewed: vital signs, nurses notes. Data interpreted: Pulse oximetry: on room air kb is 97 %. Interpretation: normal. Counseling: I had a detailed discussion with the patient and/or guardian regarding: the historical points, exam findings, and any diagnostic results supporting the discharge/admit diagnosis, the need for outpatient follow up, a family practitioner, to return to the emergency department if symptoms worsen or persist or if there are any questions or concerns that arise at home. Physician consultation: Dario Oviedo MD was contacted at 08:54, regarding consult, patient's condition, and will see patient in office, next week, Wants Avapro 300mg PO daily started and pt to follow up in office next week. Administered Medications: No medications were administered Disposition: 15:58 Co-signature as Attending Physician, Eduard Gray MD. Disposition: 12/07/17 08:59 Discharged to Home. Impression: Essential (primary) hypertension. - Condition is Stable. - Discharge Instructions: Hypertension, [id number]. - Prescriptions for Avapro 300 mg Oral tablet - take 1 tablet by ORAL route once daily for 30 days; 30 tablet. - Work release form, Medication Reconciliation Form, Thank You Letter, Antibiotic Education, Prescription Opioid Use form. - Follow up: Emergency Department; When: As needed; Reason: Worsening of condition. Follow up: Private Physician; When: 2 - 3 days; Reason: Recheck today's complaints, Continuance of care, Re-evaluation by your physician. Signatures: Odette French FNP-C LINER MACHINE OPERATOR-Dario Olivas, TECHNICAL ARTIST TECHNICAL ARTIST Eduard Gray MD MD Corrections: (The following items were deleted from the chart) 09:16 08:59 12/07/2017 08:59 Discharged to Home. Impression: Essential (primary) em hypertension. Condition is Stable. Forms are Medication Reconciliation Form, Thank You Letter, Antibiotic Education, Prescription Opioid Use. Follow up: Emergency Department; When: As needed; Reason: Worsening of condition. Follow up: Private Physician; When: 2 - 3 days; Reason: Recheck today's complaints, Continuance of care, Re-evaluation by your physician. kb
--- NOTE | 2017-12-07 08:59 | ER ---
Nurse's Notes [facility] Name: Shyann Alicia Age: 47 yrs Sex: Female : 1970 Arrival Date: 12/07/2017 Time: 08:37 Bed 18 Private MD: Diagnosis: Essential (primary) hypertension Presentation: 12/07 08:44 Acuity: LONG 4 aa5 08:45 Presenting complaint: Patient states: pt stopped taking medication on Saturday due to a em recall on Valsartan, pt c/o dizziness and headache that started yesterday, BP was 190 systolic when taken at home, denies CP. Transition of care: patient was not received from another setting of care. Onset of symptoms was December 02, 2017. Risk Assessment: Do you want to hurt yourself or someone else? Patient reports no desire to harm self or others. Initial Sepsis Screen: Does the patient meet any 2 criteria? No. Patient's initial sepsis screen is negative. Does the patient have a suspected source of infection? No. Patient's initial sepsis screen is negative. Care prior to arrival: None. 08:45 Method Of Arrival: Ambulatory em Triage Assessment: 08:49 General: Appears in no apparent distress. comfortable, Behavior is cooperative, em anxious. Pain: Denies pain. 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 - Social history:: Smoking status: Patient/guardian denies using tobacco. - Ebola Screening: : Patient negative for fever greater than or equal to 101.5 degrees Fahrenheit, and additional compatible Ebola Virus Disease symptoms Patient denies exposure to infectious person Patient denies travel to an Ebola-affected area in the 21 days before illness onset No symptoms or risks identified at this time. Screenin:07 Abuse screen: Denies threats or abuse. Nutritional screening: No deficits noted. em Tuberculosis screening: No symptoms or risk factors identified. Fall Risk None identified. Assessment: 09:08 General: Appears in no apparent distress. comfortable, Behavior is cooperative, em anxious. Pain: Denies pain. Neuro: Level of Consciousness is awake, alert, obeys commands, Oriented to person, place, time, situation, Reports headache. Cardiovascular: Denies chest pain, nausea, vomiting, Capillary refill < 3 seconds. Respiratory: Airway is patent Respiratory effort is even, unlabored, Respiratory pattern is regular, symmetrical. GI: Patient currently denies nausea, vomiting. : No signs and/or symptoms were reported regarding the genitourinary system. EENT: No signs and/or symptoms were reported regarding the EENT system. Derm: Skin is intact, Skin is pink, warm \T\ dry. Musculoskeletal: Range of motion: intact in all extremities. 09:08 Reassessment: I agree with assessment completed by Dairo Aldana LVN. . Neuro: Living Supervisor are aa5 equal bilaterally Moves all extremities. Full function Gait is steady, Speech is normal, Facial symmetry appears normal, Pupils are PERRLA. Vital Signs: 08:49 BP 146 / 76; Pulse 80; Resp 18; Pulse Ox 97% on R/A; Weight 99.79 kg; Height 5 ft. 6 em in. (167.64 cm); Pain 0/10; 09:15 BP 136 / 79; Pulse 78; Resp 16; Pulse Ox 99% on R/A; em 08:49 Body Mass Index 35.51 (99.79 kg, 167.64 cm) em ED Course: 08:37 Patient arrived in ED. mr 08:39 Odette French FNP-C is [facility]. kb 08:39 Eduard Gray MD is Attending Physician. kb 08:41 Dario Aldana LVN is Primary Nurse. em 08:45 Triage completed. aa5 08:49 Arm band placed on. em 09:07 Patient has correct armband on for positive identification. Bed in low position. Call em light in reach. 09:07 No provider procedures requiring assistance completed. Patient did not have IV access em during this emergency room visit. Administered Medications: No medications were administered Outcome: 08:59 Discharge ordered by . kb 09:16 Discharged to home ambulatory. em 09:16 Condition: good 09:16 Discharge instructions given to patient, Instructed on discharge instructions, follow up and referral plans. medication usage, Demonstrated understanding of instructions, follow-up care, medications, Prescriptions given X 1. 09:16 Patient left the ED. em Signatures: Odette French FNP-C BILLING CLINICIAN-Ckb Bryanna Gruber mr Jovan, Dario, TITLE SPECIALIST TITLE SPECIALIST Yadira Bruce, RN RN aa5
== END 2017-12-07 09:16 | disposition home or self-care (01) ==
LOC: ER 08:31
DX: I10 Essential (primary) hypertension (principal); K21.9 Gastro-esophageal reflux disease without esophagitis
CPT/HCPCS: 99282

== ENCOUNTER 2018-01-16 03:45 | Emergency (ER) | payer BC ==
--- NOTE | 2018-01-16 04:02 | ER ---
Nurse's Notes [facility] Name: Shyann Alicia Age: 47 yrs Sex: Female : 1970 Arrival Date: 01/16/2018 Time: 03:46 Bed 14 Private MD: Dario Oviedo R Diagnosis: Acute suppurative otitis media without spontaneous rupture of ear drum, right ear;Acute bronchitis Presentation: 01/16 03:57 Presenting complaint: Patient states: C/O Right ear pain together with headache that ao started an hour ago. Transition of care: patient was not received from another setting of care. Onset of symptoms was January 16, 2018. Risk Assessment: Do you want to hurt yourself or someone else? Patient reports no desire to harm self or others. Initial Sepsis Screen: Does the patient meet any 2 criteria? No. Patient's initial sepsis screen is negative. Does the patient have a suspected source of infection? No. Patient's initial sepsis screen is negative. Care prior to arrival: None. 03:57 Method Of Arrival: Ambulatory ao 03:57 Acuity: LONG 5 ao Triage Assessment: 04:15 General: Appears in no apparent distress. Pain: Complains of pain in right ear Pain wh does not radiate. Pain currently is 8 out of 10 on a pain scale. Pain began 1 hour ago. Is intermittent. EENT: Reports ear pain. Neuro: Level of Consciousness is awake, alert, obeys commands, Oriented to person, place, time, situation. Cardiovascular: Denies chest pain. Respiratory: Airway is patent Respiratory effort is even, unlabored, Respiratory pattern is regular, symmetrical. GI: Abdomen is flat, non-distended. : No signs and/or symptoms were reported regarding the genitourinary system. Derm: No signs and/or symptoms reported regarding the dermatologic system. Musculoskeletal: Range of motion: intact in all extremities. 04:17 General: Behavior is calm, cooperative, appropriate for age. 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 - Social history:: The patient lives at home, Smoking status: Patient/guardian denies using tobacco. - Ebola Screening: : Patient negative for fever greater than or equal to 101.5 degrees Fahrenheit, and additional compatible Ebola Virus Disease symptoms. Screenin:13 Abuse screen: Denies threats or abuse. Denies injuries from another. Nutritional wh screening: No deficits noted. Tuberculosis screening: No symptoms or risk factors identified. Fall Risk None identified. Vital Signs: 04:00 BP 149 / 90; Pulse 68; Resp 18; Temp 97.4; Pulse Ox 98% on R/A; ao ED Course: 03:46 Patient arrived in ED. es 03:47 Dario Oviedo MD is Private Physician. es 03:51 Fer Jones RN is Primary Nurse. ao 03:54 Eduard Gray MD is Attending Physician. 03:58 Triage completed. ao 04:14 Primary Nurse role handed off by Fer Jones RN 04:15 Liset Matos is Primary Nurse. 04:16 Arm band placed on left wrist. 04:16 No provider procedures requiring assistance completed. Patient did not have IV access during this emergency room visit. 04:18 Patient has correct armband on for positive identification. Pulse ox on. NIBP on. Administered Medications: 04:09 Drug: [place] 10 mg-325 mg 1 tabs Route: PO; 04:19 Follow up: Response: No adverse reaction Outcome: 04:02 Discharge ordered by . 04:17 Discharged to home ambulatory. 04:17 Condition: improved 04:17 Discharge instructions given to patient, Instructed on discharge instructions, follow up and referral plans. no drinking with medication, no driving heavy equipment, medication usage, POC Bronchitis \T\ Otitis MEdia Demonstrated understanding of instructions, follow-up care, medications, POC Prescriptions given X 4. 04:19 Patient left the ED. Signatures: Megan Arguello Alex, RN RN ao [place], Winsy Eduard Gray MD MD
--- NOTE | 2018-01-16 04:02 | EDPHYS ---
Physician Documentation [facility] Name: Shyann Alicia Age: 47 yrs Sex: Female : 1970 Arrival Date: 01/16/2018 Time: 03:46 Bed 14 Private MD: Dario Oviedo R ED Physician Eduard Gray HPI: 01/16 03:58 This 47 yrs old Female presents to ER via Unassigned with complaints of Ear gs Pain. 03:58 The patient presents with pain, severe. The complaints affect the right ear. Onset: The gs symptoms/episode began/occurred acutely, just prior to arrival. Modifying factors: The symptoms are alleviated by nothing, the symptoms are aggravated by nothing. Associated signs and symptoms: Pertinent positives: sore throat, cough, Pertinent negatives: fever. Severity of symptoms: At their worst the symptoms were severe in the emergency department the symptoms are unchanged. The patient has not experienced similar symptoms in the past. The patient has not recently seen a physician. 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 - Social history:: The patient lives at home, Smoking status: Patient/guardian denies using tobacco. - Ebola Screening: : Patient negative for fever greater than or equal to 101.5 degrees Fahrenheit, and additional compatible Ebola Virus Disease symptoms. ROS: 04:00 All other systems are negative. gs Exam: 04:00 Head/Face: Normocephalic, atraumatic. Eyes: Pupils equal round and reactive to light, gs extra-ocular motions intact. Lids and lashes normal. Conjunctiva and sclera are non-icteric and not injected. Cornea within normal limits. Periorbital areas with no swelling, redness, or edema. Neck: Trachea midline, no thyromegaly or masses palpated, and no cervical lymphadenopathy. Supple, full range of motion without nuchal rigidity, or vertebral point tenderness. No Meningismus. Chest/axilla: Normal chest wall appearance and motion. Nontender with no deformity. No lesions are appreciated. Cardiovascular: Regular rate and rhythm with a normal S1 and S2. No gallops, murmurs, or rubs. Normal PMI, no JVD. No pulse deficits. Respiratory: Lungs have equal breath sounds bilaterally, clear to auscultation and percussion. No rales, rhonchi or wheezes noted. No increased work of breathing, no retractions or nasal flaring. Abdomen/GI: Soft, non-tender, with normal bowel sounds. No distension or tympany. No guarding or rebound. No evidence of tenderness throughout. Back: No spinal tenderness. No costovertebral tenderness. Full range of motion. Skin: Warm, dry with normal turgor. Normal color with no rashes, no lesions, and no evidence of cellulitis. MS/ Extremity: Pulses equal, no cyanosis. Neurovascular intact. Full, normal range of motion. Neuro: Awake and alert, GCS 15, oriented to person, place, time, and situation. Cranial nerves II-XII grossly intact. Motor strength 5/5 in all extremities. Sensory grossly intact. Cerebellar exam normal. Normal gait. 04:00 Constitutional: The patient appears alert, awake. 04:00 ENT: TM's: fluid levels, on the right, loss of bony landmarks, that is moderate, on the right. Vital Signs: 04:00 BP 149 / 90; Pulse 68; Resp 18; Temp 97.4; Pulse Ox 98% on R/A; ao MDM: 03:54 Patient medically screened. 04:00 Differential diagnosis: otitis media, otitis externa, ruptured TM, acute otalgia. Data reviewed: vital signs, nurses notes. Response to treatment: the patient's symptoms have mildly improved after treatment, and as a result, I will discharge patient. Administered Medications: 04:09 Drug: Chili 10 mg-325 mg 1 tabs Route: PO; 04:19 Follow up: Response: No adverse reaction Disposition: 01/16/18 04:02 Discharged to Home. Impression: Acute suppurative otitis media without spontaneous rupture of ear drum, right ear, Acute bronchitis. - Condition is Stable. - Discharge Instructions: Acute Bronchitis, Adult, Otitis Media, Adult. - Prescriptions for Ceftin 500 mg Oral Tablet - take 1 tablet by ORAL route every 12 hours for 10 days; 20 tablet. Prednisone 20 mg Oral Tablet - take 1 tablet by ORAL route once daily for 5 days; 5 tablet. Albuterol Sulfate 90 mcg/actuation - inhale 1-2 puff by INHALATION route every 4-6 hours; 1 Inhaler. Tylenol- Codeine #4 300-60 mg Oral Tablet - take 1 tablet by ORAL route every 6 hours As needed; 12 tablet. - Medication Reconciliation Form, Thank You Letter, Antibiotic Education, Prescription Opioid Use form. - Follow up: Private Physician; When: 2 - 3 days; Reason: Re-evaluation by your physician. Signatures: Fer Jones RN RN Liset Mcfadden Gregory, MD MD Corrections: (The following items were deleted from the chart) 04:19 04:02 01/16/2018 04:02 Discharged to Home. Impression: Acute suppurative otitis media wh without spontaneous rupture of ear drum, right ear; Acute bronchitis. Condition is Stable. Forms are Medication Reconciliation Form, Thank You Letter, Antibiotic Education, Prescription Opioid Use. Follow up: Private Physician; When: 2 - 3 days; Reason: Re-evaluation by your physician. gs
[2018-01-16] MEDS ORDERED: HYDROCODONE/APAP 10/325 TAB ONE (04:11)
== END 2018-01-16 04:19 | disposition home or self-care (01) ==
LOC: ER 03:45
DX: H66.001 Acute suppurative otitis media without spontaneous rupture of ear drum, right ear (principal); J20.9 Acute bronchitis, unspecified; I10 Essential (primary) hypertension; K21.9 Gastro-esophageal reflux disease without esophagitis
CPT/HCPCS: 99283

== ENCOUNTER 2018-03-30 22:19 | Emergency (ER) | payer BC ==
[2018-03-30 23:09] LABS: Urine Blood NEGATIVE (NEG); Urine Glucose NEGATIVE (NEG); Urine Protein NEGATIVE (NEG); Urine Specific Gravity 1.015 (1.005-1.030)
[2018-03-30 23:11] LABS: Urine Volume 0.5 ML
[2018-03-30 23:12] LABS: Urine Bacteria <20 /HPF (<20); Urine Culture Reflex Order NOT NEEDED; Urine RBC NONE SEEN /HPF (NONE SEEN)
--- NOTE | 2018-03-30 23:18 | EDPHYS ---
Physician Documentation [facility] Name: Shyann Alicia Age: 47 yrs Sex: Female : 1970 Arrival Date: 03/30/2018 Time: 22:22 Bed 7 Private MD: ED Physician Berto Flower HPI: 03/31 01:18 This 47 yrs old Female presents to ER via Ambulatory with complaints of Back tw4 Pain, Pain With Urination. 01:18 The patient presents with pain that is acute, with no known mechanism of injury. The tw4 symptoms are located in the low back. 01:18 Onset: The symptoms/episode began/occurred today. The pain does not radiate. Associated tw4 signs and symptoms: The patient has no apparent associated signs or symptoms. The problem was sustained without known cause. Modifying factors: The patient symptoms are alleviated by nothing, the patient symptoms are aggravated by any movement. Severity of symptoms: At their worst the symptoms were moderate, in the emergency department the symptoms are unchanged. The patient has not experienced similar symptoms in the past. 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 - Social history:: Smoking status: Patient/guardian denies using tobacco, Patient/guardian denies using alcohol, street drugs. - Ebola Screening: : Patient negative for fever greater than or equal to 101.5 degrees Fahrenheit, and additional compatible Ebola Virus Disease symptoms Patient denies exposure to infectious person Patient denies travel to an Ebola-affected area in the 21 days before illness onset. ROS: 03/31 01:18 Constitutional: Negative for fever, chills, and weight loss, Eyes: Negative for injury, tw4 pain, redness, and discharge, Cardiovascular: Negative for chest pain, palpitations, and edema, Respiratory: Negative for shortness of breath, cough, wheezing, and pleuritic chest pain, Abdomen/GI: Negative for abdominal pain, nausea, vomiting, diarrhea, and constipation. Back: Positive for flank pain, bilaterally, Negative for injury or acute deformity, decreased range of motion, pain at rest, pain with movement. : Positive for urinary symptoms, urinary frequency, burning with urination, Negative for pelvic pain, bladder incontinence, foul smelling urine, vaginal bleeding, vaginal discharge, vaginal itching, menstrual abnormality, missed period. Exam: 01:18 Constitutional: This is a well developed, well nourished patient who is awake, alert, tw4 and in no acute distress. Head/Face: Normocephalic, atraumatic. Chest/axilla: Normal chest wall appearance and motion. Nontender with no deformity. No lesions are appreciated. Cardiovascular: Regular rate and rhythm with a normal S1 and S2. No gallops, murmurs, or rubs. Normal PMI, no JVD. No pulse deficits. Respiratory: Lungs have equal breath sounds bilaterally, clear to auscultation and percussion. No rales, rhonchi or wheezes noted. No increased work of breathing, no retractions or nasal flaring. Abdomen/GI: Soft, non-tender, with normal bowel sounds. No distension or tympany. No guarding or rebound. No evidence of tenderness throughout. 01:18 MS/ Extremity: Pulses equal, no cyanosis. Neurovascular intact. Full, normal range of motion. Neuro: Awake and alert, GCS 15, oriented to person, place, time, and situation. Cranial nerves II-XII grossly intact. Motor strength 5/5 in all extremities. Sensory grossly intact. Cerebellar exam normal. Normal gait. 01:18 Back: pain, that is very mild, of the left low back and right low back. Vital Signs: 12 22:30 Weight 90.72 kg; Height 5 ft. 6 in. (167.64 cm); Pain 10/10; rr5 22:34 BP 153 / 77; Pulse 78; Resp 18; Temp 98.9; Pulse Ox 98% on R/A; rr5 23:15 BP 147 / 91; Pulse 77; Resp 17 S; Pulse Ox 98% on R/A; cc3 22:30 Body Mass Index 32.28 (90.72 kg, 167.64 cm) rr5 MDM: 22:25 Patient medically screened. tw4 03/31 01:18 Data reviewed: vital signs, nurses notes. Counseling: I had a detailed discussion with tw4 the patient and/or guardian regarding: the historical points, exam findings, and any diagnostic results supporting the discharge/admit diagnosis. Special discussion: Based on the patient's Hx, exam, and Dx evaluation, there is no indication for emergent surgery or inpatient Tx. It is understood by the patient/guardian that if the Sx's persist or worsen they need to return immediately for re-evaluation. I discussed with the patient/guardian in detail that at this point there is no indication for admission to the hospital. It is understood, however, that if the symptoms persist or worsen the patient needs to return immediately for re-evaluation. 03/30 22:46 Order name: Urine Dipstick--Ancillary (enter results) [facility] 03/30 22:46 Order name: Urine --Ancillary (enter results) [facility] 03/30 22:58 Order name: Urine Microscopic Only; Complete Time: 01:21 EDMN 03/31 01:21 Interpretation: Within normal limits. 4 Administered Medications: 03/30 23:20 Drug: Pyridium 200 mg Route: PO; cc3 23:30 Follow up: Response: No adverse reaction [facility] 23:20 Drug: Motrin 600 mg Route: PO; cc3 23:30 Follow up: Response: No adverse reaction [facility] Disposition: 03/30/18 23:17 Discharged to Home. Impression: Dysuria. - Condition is Stable. - Discharge Instructions: Dysuria. - Prescriptions for Pyridium 200 mg Oral Tablet - take 1 tablet by ORAL route every 8 hours for 3 days; 9 tablet. - Medication Reconciliation Form, Thank You Letter, Antibiotic Education, Prescription Opioid Use, Work release form form. - Follow up: Private Physician; When: Upon discharge from the Emergency Department; Reason: If symptoms return, Recheck today's complaints, Continuance of care. - Problem is new. - Symptoms have improved. Signatures: Dispatcher [employer] ALICIAMN Berto Flower MD MD tw4 Indira Mccloud cc3 Garfield Delaney, RN RN rr5 Corrections: (The following items were deleted from the chart) 22:58 22:26 URINALYSIS+U.LAB.BRZ ordered. [facility] 23:31 23:17 03/30/2018 23:17 Discharged to Home. Impression: Dysuria. Condition is Stable. cc3 Forms are Medication Reconciliation Form, Thank You Letter, Antibiotic Education, Prescription Opioid Use. Follow up: Private Physician; When: Upon discharge from the Emergency Department; Reason: If symptoms return, Recheck today's complaints, Continuance of care. Problem is new. Symptoms have improved. tw4
--- NOTE | 2018-03-30 23:18 | ER ---
Nurse's Notes [facility] Name: Shyann Alicia Age: 47 yrs Sex: Female : 1970 Arrival Date: 03/30/2018 Time: 22:22 Bed 7 Private MD: Diagnosis: Dysuria Presentation: 03/30 22:30 Presenting complaint: Patient states: left lower back pain, pain score 10/10 burning rr5 sensation and frequent urination started today afternoon. Transition of care: patient was not received from another setting of care. Onset of symptoms was March 30, 2018. Risk Assessment: Do you want to hurt yourself or someone else? Patient reports no desire to harm self or others. Initial Sepsis Screen: Does the patient meet any 2 criteria? No. Patient's initial sepsis screen is negative. Does the patient have a suspected source of infection? No. Patient's initial sepsis screen is negative. Care prior to arrival: None. 22:30 Method Of Arrival: Ambulatory rr5 22:30 Acuity: LONG 4 rr5 Triage Assessment: 22:40 General: Appears in no apparent distress. comfortable, Behavior is calm, cooperative, cc3 appropriate for age. Pain: Complains of pain in dysuria and back pain. Musculoskeletal: Circulation, motion, and sensation intact. Range of motion: intact in all extremities. 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 - Social history:: Smoking status: Patient/guardian denies using tobacco, Patient/guardian denies using alcohol, street drugs. - Ebola Screening: : Patient negative for fever greater than or equal to 101.5 degrees Fahrenheit, and additional compatible Ebola Virus Disease symptoms Patient denies exposure to infectious person Patient denies travel to an Ebola-affected area in the 21 days before illness onset. Screenin:40 Abuse screen: Denies threats or abuse. Denies injuries from another. Nutritional cc3 screening: No deficits noted. Tuberculosis screening: No symptoms or risk factors identified. Fall Risk Ambulatory Aid- None/Bed Rest/Nurse Assist (0 pts). Gait- Normal/Bed Rest/Wheelchair (0 pts) Mental Status- Oriented to own ability (0 pts). Assessment: 22:40 Neuro: Level of Consciousness is awake, alert, obeys commands, Oriented to person, cc3 place, time, situation, Appropriate for age. 23:30 Reassessment: Patient appears in no apparent distress at this time. Patient and/or cc3 family updated on plan of care and expected duration. Pain level reassessed. Patient is alert, oriented x 3, equal unlabored respirations, skin warm/dry/pink. Dr. Flower discharged the patient home with prescription given. No IV cannula in situ. Patient left ER vitally stable and ambulatory. Vital Signs: 22:30 Weight 90.72 kg; Height 5 ft. 6 in. (167.64 cm); Pain 10/10; rr5 22:34 BP 153 / 77; Pulse 78; Resp 18; Temp 98.9; Pulse Ox 98% on R/A; rr5 23:15 BP 147 / 91; Pulse 77; Resp 17 S; Pulse Ox 98% on R/A; cc3 22:30 Body Mass Index 32.28 (90.72 kg, 167.64 cm) rr5 ED Course: 22:22 Patient arrived in ED. ds1 22:25 Berto Flower MD is Attending Physician. tw4 22:29 Garfield Delaney, BABATUNDE is Primary Nurse. rr5 22:34 Triage completed. rr5 22:40 Arm band placed on right wrist. cc3 22:40 Patient has correct armband on for positive identification. Bed in low position. Call cc3 light in reach. Side rails up X 1. Pulse ox on. NIBP on. 23:30 No provider procedures requiring assistance completed. Patient did not have IV access cc3 during this emergency room visit. Administered Medications: 23:20 Drug: Pyridium 200 mg Route: PO; cc3 23:30 Follow up: Response: No adverse reaction cc3 23:20 Drug: Motrin 600 mg Route: PO; cc3 23:30 Follow up: Response: No adverse reaction cc3 Outcome: 23:17 Discharge ordered by . tw4 23:30 Discharged to home ambulatory. cc3 23:30 Condition: stable 23:30 Discharge instructions given to patient, Instructed on discharge instructions, follow up and referral plans. medication usage, Demonstrated understanding of instructions, follow-up care, medications, Prescriptions given X 1. 23:31 Patient left the ED. cc3 Signatures: Rose Hewitt ds1 Berto Flower MD MD tw4 Indira Mccloud cc3 Garfield Delaney, RN RN rr5
[2018-03-30] MEDS ORDERED: IBUPROFEN 200 MG TAB PO ONE (23:31)
[2018-03-30] MEDS ORDERED: IBUPROFEN 400 MG TAB ONE (23:31)
[2018-03-30] MEDS ORDERED: PHENAZOPYRIDINE 100MG TAB PO ONE (23:31)
== END 2018-03-30 23:31 | disposition home or self-care (01) ==
LOC: ER 22:19
DX: R30.0 Dysuria (principal)
CPT/HCPCS: 81003; 81015; 81025; 99283

== ENCOUNTER 2018-06-04 03:00 | Emergency (ER) | payer BC ==
[2018-06-04 04:35] LABS: Protime INR 1.19
[2018-06-04 04:37] LABS: Absolute Lymphocytes (CBC) 1.4 K/uL (0.7-4.9); Absolute Monocytes 0.8 K/uL (0.1-1.3); Absolute Neutrophil 7.8 K/uL (1.8-8.0); Basophils % 0.7 % (0-1.3); Eosinophils % 1.4 % (0-4.4); Hematocrit 41.5 % (36.0-45.0); Lymphocytes % 13.9 % (15.3-44.8); MPV 9.5 fL (7.6-11.3); Monocytes % 8.1 % (3.3-12.3); RBC Red Blood Cell Count 4.61 M/uL (3.86-4.86)
[2018-06-04] MEDS ORDERED: MORPHINE 4 MG/ML SYR ONE (04:45)
[2018-06-04] MEDS ORDERED: BISACODYL 10 MG RECTAL SUPP ONE (04:45)
[2018-06-04] MEDS ORDERED: METRONIDAZOLE 500mg IVPB 500 MG/100 ML BAG IV ONE (04:46)
[2018-06-04] MEDS ORDERED: Levofloxacin 750mg IV 750 MG/150 ML BAG IV ONE (04:46)
[2018-06-04] MEDS ORDERED: ONDANSETRON 4 MG/2 ML VIAL ONE ×3 (04:46→07:47)
[2018-06-04] MEDS ORDERED: NA CHLORIDE 0.9% 1,000 ML ONE (04:46)
[2018-06-04] MEDS ORDERED: LACTULOSE 20 GM/30 ML UCUP ONE (04:46)
[2018-06-04 04:57] LABS: ALT/SGPT 34 U/L (12-78); AST/SGOT 22 U/L (15-37); Albumin 3.6 g/dL (3.4-5.0); Alkaline Phosphatase 89 U/L (45-117); BUN Blood Urea Nitrogen 10 mg/dL (7-18); Bicarbonate 31 mmol/L (21-32); Bilirubin Direct 0.3 mg/dL (0-0.2); Bilirubin Total 0.9 mg/dL (0.2-1.0); Glucose Level 103 mg/dL (74-106); Lipase 76 U/L (73-393); Magnesium 1.9 mg/dL (1.8-2.4); NT PRO-BNP 38 pg/mL (<125); Potassium 3.6 mmol/L (3.5-5.1); Sodium Level 139 mmol/L (136-145); Troponin (Emerg Dept Use Only) < 0.02 ng/mL (0.0-0.045)
--- NOTE | 2018-06-04 07:22 | ER ---
Nurse's Notes [facility] Name: Shyann Alicia Age: 47 yrs Sex: Female : 1970 Arrival Date: 06/04/2018 Time: 03:04 Bed 20 Private MD: Dario Oviedo R Diagnosis: Constipation;Abdominal tenderness;Diverticulitis of large intestine without perforation or abscess without bleeding Presentation: 06/04 03:15 Presenting complaint: Patient states: that she is having left sided abd pain. Has tried fc stool softeners and supp. and is unable to go. Pt crying in room due to the pain. Last BM 06/02/2018. Concerned that this has something to do with her diverticulitis. Transition of care: patient was not received from another setting of care. Onset of symptoms was June 02, 2018. Risk Assessment: Do you want to hurt yourself or someone else? Patient reports no desire to harm self or others. Initial Sepsis Screen: Does the patient meet any 2 criteria? HR > 90 bpm. Yes Does the patient have a suspected source of infection? No. Patient's initial sepsis screen is negative. Care prior to arrival: Medication(s) given: Stool softeners, and supp. 03:15 Method Of Arrival: Ambulatory fc 03:15 Acuity: LONG 3 fc Historical: - Allergies: 03:30 No Known Allergies; fc - Home Meds: 03:30 Protonix 20 mg Oral TbEC 1 tab once daily [Active]; Adipex-P 37.5 mg oral tab 0.5 tab fc once daily [Active]; - PMHx: 03:30 GERD; Diverticulitis; Ulcers; Hernia; fc - PSHx: 03:30 ovarian cyst; fc - Immunization history:: Last tetanus immunization: up to date Flu vaccine is not up to date. - Social history:: Smoking status: Patient/guardian denies using tobacco, Patient/guardian denies using alcohol, street drugs. - Ebola Screening: : Patient negative for fever greater than or equal to 101.5 degrees Fahrenheit, and additional compatible Ebola Virus Disease symptoms Patient denies exposure to infectious person Patient denies travel to an Ebola-affected area in the 21 days before illness onset. - Family history:: not pertinent. Screenin:29 Abuse screen: Denies threats or abuse. Nutritional screening: No deficits noted. fc Tuberculosis screening: No symptoms or risk factors identified. Fall Risk None identified. Assessment: 03:51 General: Appears in no apparent distress. uncomfortable, Behavior is calm, cooperative, jd3 appropriate for age. Pain: Complains of pain in abdomen Quality of pain is described as pressure, sharp, tender. Neuro: Level of Consciousness is awake, alert, obeys commands, Oriented to person, place, time, situation, Appropriate for age. Cardiovascular: Capillary refill < 3 seconds Patient's skin is warm and dry. Respiratory: Airway is patent Respiratory effort is even, unlabored, Respiratory pattern is regular, symmetrical. GI: Abdomen is round Bowel sounds present X 4 quads. Abd is soft Abdomen is tender to palpation in left lower quadrant Reports constipation. : No signs and/or symptoms were reported regarding the genitourinary system. EENT: No signs and/or symptoms were reported regarding the EENT system. Derm: Skin is intact, Skin is dry, Skin is normal, Skin temperature is warm. Musculoskeletal: Circulation, motion, and sensation intact. Range of motion: intact in all extremities. 05:05 Reassessment: Patient appears in no apparent distress at this time. Patient and/or jd3 family updated on plan of care and expected duration. Pain level reassessed. Patient is alert, oriented x 3, equal unlabored respirations, skin warm/dry/pink. Patient states feeling better. 06:08 Reassessment: Patient appears in no apparent distress at this time. Patient and/or jd3 family updated on plan of care and expected duration. Pain level reassessed. Patient is alert, oriented x 3, equal unlabored respirations, skin warm/dry/pink. 07:05 Reassessment: Patient appears in no apparent distress at this time. Patient and/or hb family updated on plan of care and expected duration. Pain level reassessed. Patient is alert, oriented x 3, equal unlabored respirations, skin warm/dry/pink. 07:30 Reassessment: Discharge ordered, IV antibiotics infusing at this time. hb 07:45 Reassessment: Pt c/o nausea, Dr. Dash notified, Zofran administered as ordered. VSS.hb 07:53 Reassessment: Pt actively vomiting, Dr. Dash notified Phenergan administered as hb ordered. 08:45 Reassessment: Patient appears in no apparent distress at this time. Patient and/or hb family updated on plan of care and expected duration. Pain level reassessed. Patient is alert, oriented x 3, equal unlabored respirations, skin warm/dry/pink. Patient states feeling better. Vital Signs: 03:15 BP 140 / 83; Pulse 98; Resp 18; Temp 99.0(O); Pulse Ox 96% on R/A; Weight 98.88 kg (R); fc Height 5 ft. 6 in. (167.64 cm) (R); Pain 10/10; 05:05 BP 148 / 74; Pulse 81; Resp 17 S; Pulse Ox 96% on R/A; jd3 06:08 BP 120 / 64; Pulse 83; Resp 17 S; Pulse Ox 96% on R/A; jd3 07:00 BP 126 / 72; Pulse 80; Resp 16; Pulse Ox 100% on R/A; hb 03:15 Body Mass Index 35.19 (98.88 kg, 167.64 cm) fc ED Course: 03:04 Patient arrived in ED. es 03:04 Dario Oviedo MD is Private Physician. es 03:15 Arm band placed on Patient placed in an exam room, on a stretcher. fc 03:26 James Dash MD is Attending Physician. slime 03:27 Triage completed. fc 03:29 Patient has correct armband on for positive identification. Placed in gown. Bed in low fc position. Call light in reach. 03:29 No provider procedures requiring assistance completed. fc 03:51 Luigi Rojas, RN is Primary Nurse. jd3 04:16 X-ray completed. Portable x-ray completed in exam room. Patient tolerated procedure kw well. 04:17 XRAY Chest (1 view) In Process Unspecified. EDMS 06:19 CT completed. Patient tolerated procedure well. Patient moved to CT via wheelchair. Patient moved back from CT. 06:22 CT Abd/Pelvis - W/Contrast In Process Unspecified. EDMS 07:20 Dario Oviedo MD is Referral Physician. slime 07:20 Claudia Lacey MD is Referral Physician. slime 07:21 Referral Physician role handed off by Claudia Lacey MD slime 07:21 Phong Peter MD is Referral Physician. slime 09:19 IV discontinued, intact, bleeding controlled, No redness/swelling at site. Pressure hb dressing applied. Administered Medications: 04:47 Drug: Dulcolax Suppository 10 mg Route: ND; jd3 06:22 Follow up: Response: No adverse reaction jd3 04:47 Drug: Lactulose 30 grams Volume: 45 ml; Route: PO; jd3 06:22 Follow up: Response: No adverse reaction jd3 04:48 Drug: NS 0.9% 1000 ml Route: IV; Rate: 1 bolus; Site: right antecubital; jd3 04:48 Drug: levofloxacin 750 mg Volume: 150 ml; Route: IVPB; Infused Over: 90 mins; Site: jd3 right antecubital; 06:45 Follow up: Response: No adverse reaction; IV Status: Completed infusion jd3 04:48 Drug: morphine 4 mg Route: IVP; Site: right antecubital; jd3 06:22 Follow up: Response: No adverse reaction jd3 04:48 Drug: Zofran 4 mg Route: IVP; Site: right antecubital; jd3 06:22 Follow up: Response: No adverse reaction jd3 06:21 Drug: Zofran 4 mg Route: IVP; Site: right antecubital; jd3 06:57 Follow up: Response: No adverse reaction jd3 06:44 Drug: Flagyl 500 mg Volume: 100 ml; Route: IVPB; Rate: 200 ml/hr; Infused Over: 30 jd3 mins; Site: right antecubital; 07:52 Follow up: Response: No adverse reaction; IV Status: Completed infusion hb 07:42 Drug: Rocephin - (cefTRIAXone) 1 grams Route: IVPB; Infused Over: 30 mins; Site: right hb antecubital; 07:42 Drug: Zofran 4 mg Route: IVP; Site: right antecubital; hb 07:50 Drug: Phenergan 12.5 mg Route: IVP; Site: right antecubital; hb Outcome: 07:21 Discharge ordered by . slime 09:18 Discharged to home ambulatory. hb 09:18 Condition: stable 09:18 Discharge instructions given to patient, Instructed on discharge instructions, follow up and referral plans. medication usage, Demonstrated understanding of instructions, follow-up care, medications, Prescriptions given X x 5 09:19 Patient left the ED. hb Signatures: Dispatcher [employer] EDJames Cottrell, MD MD slime Jos, Nate Shipley Felicia, RN RN Jamia Montenegro Heather, RN RN Luigi White RN RN jd3
--- NOTE | 2018-06-04 07:22 | EDPHYS ---
Physician Documentation [facility] Name: Shyann Alicia Age: 47 yrs Sex: Female : 1970 Arrival Date: 06/04/2018 Time: 03:04 Bed 20 Private MD: Dario Oviedo R ED Physician James Dash HPI: 06/04 03:54 This 47 yrs old Female presents to ER via Ambulatory with complaints of slime Constipation. 03:54 The patient presents with abdominal pain in the left lower quadrant. Onset: The slime symptoms/episode began/occurred 3 day(s) ago. The patient presents to the emergency department with diarrhea, abdominal pain, of the left upper quadrant and left lower quadrant. Onset: The symptoms/episode began/occurred 3 day(s) ago. Possible causes: unknown. The symptoms are aggravated by nothing. The symptoms are alleviated by nothing. Associated signs and symptoms: The patient has no apparent associated signs or symptoms. The symptoms do not radiate. Associated signs and symptoms: none. Historical: - Allergies: 03:30 No Known Allergies; fc - Home Meds: 03:30 Protonix 20 mg Oral TbEC 1 tab once daily [Active]; Adipex-P 37.5 mg oral tab 0.5 tab fc once daily [Active]; - PMHx: 03:30 GERD; Diverticulitis; Ulcers; Hernia; fc - PSHx: 03:30 ovarian cyst; fc - Immunization history:: Last tetanus immunization: up to date Flu vaccine is not up to date. - Social history:: Smoking status: Patient/guardian denies using tobacco, Patient/guardian denies using alcohol, street drugs. - Ebola Screening: : Patient negative for fever greater than or equal to 101.5 degrees Fahrenheit, and additional compatible Ebola Virus Disease symptoms Patient denies exposure to infectious person Patient denies travel to an Ebola-affected area in the 21 days before illness onset. - Family history:: not pertinent. ROS: 03:54 Constitutional: Negative for fever, chills, and weight loss, Eyes: Negative for injury, slime pain, redness, and discharge, ENT: Negative for injury, pain, and discharge, Neck: Negative for injury, pain, and swelling, Cardiovascular: Negative for chest pain, palpitations, and edema, Respiratory: Negative for shortness of breath, cough, wheezing, and pleuritic chest pain, Back: Negative for injury and pain, : Negative for injury, bleeding, discharge, and swelling, MS/Extremity: Negative for injury and deformity, Skin: Negative for injury, rash, and discoloration, Neuro: Negative for headache, weakness, numbness, tingling, and seizure, Psych: Negative for depression, anxiety, suicide ideation, homicidal ideation, and hallucinations, Allergy/Immunology: Negative for hives, rash, and allergies, Endocrine: Negative for neck swelling, polydipsia, polyuria, polyphagia, and marked weight changes, Hematologic/Lymphatic: Negative for swollen nodes, abnormal bleeding, and unusual bruising. 03:54 Abdomen/GI: Positive for abdominal pain, constipation, of the left upper quadrant and left lower quadrant. Exam: 03:54 Constitutional: This is a well developed, well nourished patient who is awake, alert, slime and in no acute distress. Head/Face: Normocephalic, atraumatic. Eyes: Pupils equal round and reactive to light, extra-ocular motions intact. Lids and lashes normal. Conjunctiva and sclera are non-icteric and not injected. Cornea within normal limits. Periorbital areas with no swelling, redness, or edema. ENT: Nares patent. No nasal discharge, no septal abnormalities noted. Tympanic membranes are normal and external auditory canals are clear. Oropharynx with no redness, swelling, or masses, exudates, or evidence of obstruction, uvula midline. Mucous membranes moist. Neck: Trachea midline, no thyromegaly or masses palpated, and no cervical lymphadenopathy. Supple, full range of motion without nuchal rigidity, or vertebral point tenderness. No Meningismus. Chest/axilla: Normal chest wall appearance and motion. Nontender with no deformity. No lesions are appreciated. Cardiovascular: Regular rate and rhythm with a normal S1 and S2. No gallops, murmurs, or rubs. Normal PMI, no JVD. No pulse deficits. Respiratory: Lungs have equal breath sounds bilaterally, clear to auscultation and percussion. No rales, rhonchi or wheezes noted. No increased work of breathing, no retractions or nasal flaring. Back: No spinal tenderness. No costovertebral tenderness. Full range of motion. Skin: Warm, dry with normal turgor. Normal color with no rashes, no lesions, and no evidence of cellulitis. MS/ Extremity: Pulses equal, no cyanosis. Neurovascular intact. Full, normal range of motion. Neuro: Awake and alert, GCS 15, oriented to person, place, time, and situation. Cranial nerves II-XII grossly intact. Motor strength 5/5 in all extremities. Sensory grossly intact. Cerebellar exam normal. Normal gait. Psych: Awake, alert, with orientation to person, place and time. Behavior, mood, and affect are within normal limits. 03:54 Abdomen/GI: Inspection: distension, Bowel sounds: normal, Palpation: mild abdominal tenderness, moderate abdominal tenderness, in the left upper quadrant and left lower quadrant, Liver: no appreciated palpable abnormalities, Hernia: not appreciated. Vital Signs: 03:15 BP 140 / 83; Pulse 98; Resp 18; Temp 99.0(O); Pulse Ox 96% on R/A; Weight 98.88 kg (R); fc Height 5 ft. 6 in. (167.64 cm) (R); Pain 10/10; 05:05 BP 148 / 74; Pulse 81; Resp 17 S; Pulse Ox 96% on R/A; jd3 06:08 BP 120 / 64; Pulse 83; Resp 17 S; Pulse Ox 96% on R/A; jd3 07:00 BP 126 / 72; Pulse 80; Resp 16; Pulse Ox 100% on R/A; hb 03:15 Body Mass Index 35.19 (98.88 kg, 167.64 cm) MDM: 03:26 Patient medically screened. [facility] 03:54 Data reviewed: vital signs, nurses notes, lab test result(s), radiologic studies, CT slime scan, plain films. 06/04 03:54 Order name: Basic Metabolic Panel; Complete Time: 05:15 [facility] 06/04 03:54 Order name: CBC with Diff; Complete Time: 05:15 [facility] 06/04 03:54 Order name: Creatinine for Radiology; Complete Time: 05:15 [facility] 06/04 03:54 Order name: Hepatic Function; Complete Time: 05:15 [facility] 06/04 03:54 Order name: Lipase; Complete Time: 05:15 [facility] 06/04 03:54 Order name: Magnesium; Complete Time: 05:15 [facility] 06/04 03:54 Order name: NT PRO-BNP; Complete Time: 05:15 [facility] 06/04 03:54 Order name: PT-INR; Complete Time: 05:15 [facility] 06/04 03:54 Order name: Troponin (emerg Dept Use Only); Complete Time: 05:15 [facility] 06/04 03:54 Order name: XRAY Chest (1 view) [facility] 06/04 03:54 Order name: CT Abd/Pelvis - W/Contrast [facility] 06/04 03:54 Order name: IV Saline Lock; Complete Time: 04:13 [facility] 06/04 03:54 Order name: Labs collected and sent; Complete Time: 04:13 [facility] 06/04 03:54 Order name: EKG; Complete Time: 03:55 [facility] 06/04 03:54 Order name: Cardiac monitoring; Complete Time: 05:01 [facility] 06/04 03:54 Order name: EKG - Nurse/Tech; Complete Time: 05:01 [facility] 06/04 03:54 Order name: O2 Per Protocol; Complete Time: 04:09 [facility] 06/04 03:54 Order name: O2 Sat Monitoring; Complete Time: 04:09 [facility] Administered Medications: 04:47 Drug: Dulcolax Suppository 10 mg Route: KS; jd3 06:22 Follow up: Response: No adverse reaction jd3 04:47 Drug: Lactulose 30 grams Volume: 45 ml; Route: PO; jd3 06:22 Follow up: Response: No adverse reaction jd3 04:48 Drug: NS 0.9% 1000 ml Route: IV; Rate: 1 bolus; Site: right antecubital; jd3 04:48 Drug: levofloxacin 750 mg Volume: 150 ml; Route: IVPB; Infused Over: 90 mins; Site: jd3 right antecubital; 06:45 Follow up: Response: No adverse reaction; IV Status: Completed infusion jd3 04:48 Drug: morphine 4 mg Route: IVP; Site: right antecubital; jd3 06:22 Follow up: Response: No adverse reaction jd3 04:48 Drug: Zofran 4 mg Route: IVP; Site: right antecubital; jd3 06:22 Follow up: Response: No adverse reaction jd3 06:21 Drug: Zofran 4 mg Route: IVP; Site: right antecubital; jd3 06:57 Follow up: Response: No adverse reaction jd3 06:44 Drug: Flagyl 500 mg Volume: 100 ml; Route: IVPB; Rate: 200 ml/hr; Infused Over: 30 jd3 mins; Site: right antecubital; 07:52 Follow up: Response: No adverse reaction; IV Status: Completed infusion hb 07:42 Drug: Rocephin - (cefTRIAXone) 1 grams Route: IVPB; Infused Over: 30 mins; Site: right antecubital; 07:42 Drug: Zofran 4 mg Route: IVP; Site: right antecubital; hb 07:50 Drug: Phenergan 12.5 mg Route: IVP; Site: right antecubital; Disposition: 06/04/18 07:21 Discharged to Home. Impression: Constipation, Abdominal tenderness, Diverticulitis of large intestine without perforation or abscess without bleeding. - Condition is Stable. - Discharge Instructions: Abdominal Pain, Adult, Constipation, Adult, High-Fiber Diet, Diverticulitis, Diverticulitis, Areo-ru-[id number], Constipation, Adult, Ajah-[id number], Abdominal Pain, Adult, [id number]. - Prescriptions for Bentyl 20 mg Oral Tablet - take 1 tablet by ORAL route every 6 hours As needed; 20 tablet. Flagyl 500 mg Oral Tablet - take 1 tablet by ORAL route every 6 hours for 10 days; 40 tablet. Levaquin 750 mg Oral Tablet - take 1 tablet by ORAL route once daily for 10 days; 10 tablet. Colace 100 mg Oral Tablet - take 1 tablet by ORAL route every 12 hours; 14 tablet. Zofran 4 mg Oral Tablet - take 1 tablet by ORAL route every 12 hours As needed; 20 tablet. - Medication Reconciliation Form, Thank You Letter, Antibiotic Education, Prescription Opioid Use, Work release form form. - Follow up: Dario vOiedo; When: 2 - 3 days; Reason: Recheck today's complaints, Continuance of care, Re-evaluation by your physician. Follow up: ; When: 2 - 3 days; Reason: Recheck today's complaints, Continuance of care, Re-evaluation by your physician. Follow up: Phong Peter MD; When: 2 - 3 days; Reason: Recheck today's complaints, Re-evaluation by your physician. - Problem is new. - Symptoms have improved. Signatures: Dispatcher [employer] James Gayle MD MD cha Chretien, Felicia, RN RN Myah Salazar RN Luigi Leonard RN RN jd3 Corrections: (The following items were deleted from the chart) 09:19 07:21 06/04/2018 07:21 Discharged to Home. Impression: Constipation; Abdominal hb tenderness; Diverticulitis of large intestine without perforation or abscess without bleeding. Condition is Stable. Discharge Instructions: Abdominal Pain, Adult, Constipation, Adult, Constipation, Adult, [id number], Abdominal Pain, Adult, Thpx-ye-Oaqi, High-Fiber Diet, Diverticulitis, Diverticulitis, [id number]. Prescriptions for Bentyl 20 mg Oral Tablet - take 1 tablet by ORAL route every 6 hours As needed; 20 tablet, Colace 100 mg Oral Tablet - take 1 tablet by ORAL route every 12 hours; 14 tablet, Flagyl 500 mg Oral Tablet - take 1 tablet by ORAL route every 6 hours for 10 days; 40 tablet, Levaquin 750 mg Oral Tablet - take 1 tablet by ORAL route once daily for 10 days; 10 tablet. and Forms are Medication Reconciliation Form, Thank You Letter, Antibiotic Education, Prescription Opioid Use. Follow up: Dario Oviedo; When: 2 - 3 days; Reason: Recheck today's complaints, Continuance of care, Re-evaluation by your physician. Follow up: Phong Peter; When: 2 - 3 days; Reason: Recheck today's complaints, Re-evaluation by your physician. Problem is new. Symptoms have improved. slime
[2018-06-04] MEDS ORDERED: CEFTRIAXONE/SWI 1gm 1 GM/10 ML SYR ONE (07:44)
[2018-06-04] MEDS ORDERED: PROMETHAZINE 25 MG/ML VIAL ONE (07:57)
--- NOTE | 2018-06-04 08:17 | RAD REPORT ---
EXAM DESCRIPTION: Emil Single View06/04/2018 4:16 am CLINICAL HISTORY: Abdominal pain COMPARISON: 2016 FINDINGS: The lungs appear clear of acute infiltrate. The heart is normal size IMPRESSION: No acute abnormalities displayed
--- NOTE | 2018-06-04 09:52 | EKG ---
Test Date: 2018-06-04 Test Time: 04:56:16 Collarette Separator: LISA MEASUREMENT RESULTS: Intervals: Rate: 75 OH: 160 QRSD: 90 QT: 376 QTc: 419 [place]: P: 68 OH: 160 QRS: 96 T: 71 INTERPRETIVE STATEMENTS: Normal sinus rhythm Rightward axis Borderline ECG Compared to ECG 08/30/2017 19:45:54 Right-axis deviation now present Sinus bradycardia no longer present Electronically Signed On 06-04-18 09:51:32 PLAY LEADER by Pérez Pappas
--- NOTE | 2018-06-04 13:31 | RAD REPORT ---
EXAM DESCRIPTION: CT - Abdomen Pelvis W Contrast - 06/04/2018 8:55 am CLINICAL HISTORY: The patient is 47 years old and is Female; ABD PAIN TECHNIQUE: Axial computed tomography images of the abdomen and pelvis with intravenous contrast. Sagittal and co daniel reformatted images were created and reviewed. This CT exam was performed using one or more of t he following dose reduction techniques: Automated exposure control, adjustment of the mA and/or kV ac cording to patient size, and/or use of iterative reconstruction technique. COMPARISON: No relevant prior studies available. FINDINGS: Lung bases: Unremarkable. No mass. No consolidation. ABDOMEN: Liver: Fatty liver fatty infiltration of the pancreas is present. Gallbladder and bile ducts: No calcified stones. No ductal dilation. Pancreas: See above. Spleen: Unremarkable. Adrenals: Unremarkable. No mass. Kidneys and ureters: An upper pole 2.6 cm left renal cyst is present. No follow-up imaging is necessa ry. The kidneys enhance symmetrically. No obstructing renal or ureteral calculus is seen. Stomach and bowel: Oral contrast is present within the stomach and throughout the majority of the sma ll bowel which is normal in caliber. Several scattered colonic diverticula are present throughout the colon. Extensive mucosal thickening with surrounding inflammation involving the distal descending an d sigmoid colon is present. PELVIS: Appendix: The appendix is normal in caliber without surrounding inflammation. Bladder: Unremarkable. No mass. Reproductive: A 1.5 cm left ovarian cyst is present No follow-up imaging is necessary. The uterus and right ovary are normal. ABDOMEN and PELVIS: Intraperitoneal space: Unremarkable. No free air. No significant fluid collection. Bones/joints No acute fracture. Soft tissues: The soft tissues are normal. Vasculature: Unremarkable. No abdominal aortic aneurysm. Lymph nodes: Unremarkable. No enlarged lymph nodes. IMPRESSION: 1. Findings consistent with acute distal descending/sigmoid colon diverticulitis. No marlon dence of diverticular abscess. 2. Chronic findings as above. Electronically signed by Erika Luke MD 06/04/2018 6:27 AM MATERIAL INSPECTOR Due to temporary technical issues with the PACS/Fluency reporting system, reports are being signed by the in house radiologist as a courtesy to ensure prompt reporting. The interpreting radiologist is f ully responsible for the content of the report.
== END 2018-06-04 09:19 | disposition home or self-care (01) ==
LOC: ER 03:00
DX: K59.00 Constipation, unspecified (principal); K57.32 Diverticulitis of large intestine without perforation or abscess without bleeding; K21.9 Gastro-esophageal reflux disease without esophagitis
CPT/HCPCS: 36415; 71045; 74177; 80048; 80076; 83690; 83735; 83880; 84484; 85025; 85610; 93005; J0696; J2405; J2550; J7030; Q9967

== ENCOUNTER 2018-06-06 09:57 | Inpatient (IN) | payer BC ==
[2018-06-06] MEDS ORDERED: CIPROFLOXACIN 400mg IV 400 MG/200 ML BAG IV SCH (11:00)
[2018-06-06] MEDS: NACHLORIDE 0.45% 1,000 ML IV SCH (12:40)
[2018-06-06] MEDS: METRONIDAZOLE 500mg IVPB 500 MG/100 ML BAG IV SCH ×2 (12:40→17:20)
[2018-06-06] MEDS ORDERED: MORPHINE 4 MG/ML SYR IV PRN (13:13)
[2018-06-06] MEDS: ONDANSETRON 4 MG/2 ML VIAL IV PRN ×2 (13:29→19:28)
[2018-06-07] MEDS: NACHLORIDE 0.45% 1,000 ML IV SCH ×3 (00:49→21:56)
[2018-06-07] MEDS: CIPROFLOXACIN 400mg IV 400 MG/200 ML BAG IV SCH ×2 (00:50→13:29)
[2018-06-07] MEDS: METRONIDAZOLE 500mg IVPB 500 MG/100 ML BAG IV SCH ×3 (00:50→16:55)
[2018-06-07] MEDS: ONDANSETRON 4 MG/2 ML VIAL IV PRN ×3 (03:05→16:55)
[2018-06-08] MEDS: ACETAMINOPHEN 500 MG TAB PO PRN ×2 (01:00→06:56)
[2018-06-08] MEDS: METRONIDAZOLE 500mg IVPB 500 MG/100 ML BAG IV SCH ×2 (01:01→08:27)
[2018-06-08] MEDS: CIPROFLOXACIN 400mg IV 400 MG/200 ML BAG IV SCH (01:02)
[2018-06-08] MEDS: ONDANSETRON 4 MG/2 ML VIAL IV PRN (01:04)
[2018-06-08] MEDS: NACHLORIDE 0.45% 1,000 ML IV SCH (03:00)
--- NOTE | 2018-06-08 03:44 | HP ---
Date of Admission: 06/06/2018 Chief Complaint: Left lower quadrant pain. History Of Present Illness: A 47-year-old female was seen 2 days prior to admission in the emergency room. She was diagnosed to have diverticulitis, however, she did not want to get admitted. She was given oral antibiotics. She tried for 2 days without any relief. The patient came back to office w hen she was found to have moderate tenderness in the left lower quadrant without any rebound. The tigre rodriguez is admitted for IV antibiotic therapy because of failure of oral antibiotics. The patient palak ed any history of rectal bleeding. Past Medical History: Essentially negative for any chronic illnesses such as diabetes, hypertension. Family History: History of colon problem; however, the patient is not sure as to the nature of the nasir kee. Personal History: The patient has been taking Cipro and Flagyl. Allergies: SHE DOES NOT HAVE ANY DRUG ALLERGIES. Review of Systems: No chest pain or shortness of breath. Physical Examination: General: Revealed a 47-year-old female, in moderate pain. Afebrile. HEENT: Otherwise negative. Neck: Supple. JVD negative. Chest: Clear. Heart: Regular. Abdomen: Tender left lower quadrant. No palpable mass. Extremities: No edema. Laboratory Data: Done in the emergency room. White count was normal. Assessment: Acute diverticulitis, not responding to oral antibiotic and elevated treatment. Plan: IV Flagyl, IV Cipro. See the response. Morphine for pain. Zofran for nausea and vomiting. JAVY/BOB Voice ID: [id number]
== END 2018-06-08 10:57 | disposition home or self-care (01) | DRG 392 ==
LOC: 4TH 10:23
PROVIDERS: ADMIT Internal Medicine; ATTEND Internal Medicine
DX: K57.92 Diverticulitis of intestine, part unspecified, without perforation or abscess without bleeding (principal)
CPT/HCPCS: J0744; J2405

== ENCOUNTER 2018-08-23 19:28 | Emergency (ER) | payer BC ==
[2018-08-23 20:52] LABS: Absolute Lymphocytes (CBC) 1.8 K/uL (0.7-4.9); Absolute Monocytes 0.7 K/uL (0.1-1.3); Absolute Neutrophil 5.3 K/uL (1.8-8.0); Basophils % 1.1 % (0-1.3); Eosinophils % 2.2 % (0-4.4); Lymphocytes % 22.6 % (15.3-44.8); MPV 9.6 fL (7.6-11.3); Monocytes % 8.2 % (3.3-12.3); RBC Red Blood Cell Count 4.52 M/uL (3.86-4.86)
[2018-08-23 21:11] LABS: ALT/SGPT 22 U/L (12-78); AST/SGOT 14 U/L (15-37); Albumin 3.4 g/dL (3.4-5.0); Alkaline Phosphatase 97 U/L (45-117); BUN Blood Urea Nitrogen 7 mg/dL (7-18); Bicarbonate 32 mmol/L (21-32); Bilirubin Direct < 0.1 mg/dL (0-0.2); Bilirubin Total 0.4 mg/dL (0.2-1.0); Glucose Level 105 mg/dL (74-106); Lipase 87 U/L (73-393); Potassium 3.9 mmol/L (3.5-5.1); Protein, Total 7.1 g/dL (6.4-8.2); Sodium Level 142 mmol/L (136-145)
[2018-08-23 21:12] LABS: Urine Blood NEGATIVE (NEG); Urine Glucose NEGATIVE (NEG); Urine Protein NEGATIVE (NEG); Urine Specific Gravity 1.025 (1.005-1.030)
[2018-08-23] MEDS ORDERED: MORPHINE 4 MG/ML SYR ONE (21:13)
[2018-08-23] MEDS ORDERED: ONDANSETRON 4 MG/2 ML VIAL ONE (21:13)
[2018-08-23 21:24] LABS: Urine Bacteria 20-50 /HPF (<20); Urine Culture Reflex Order NOT NEEDED; Urine Mucus MOD /HPF (NONE SEEN); Urine RBC NONE SEEN /HPF (NONE SEEN)
--- NOTE | 2018-08-23 23:52 | EDPHYS ---
Physician Documentation [facility] Name: Shyann Alicia Age: 48 yrs Sex: Female : 1970 Arrival Date: 08/23/2018 Time: 19:30 Bed 14 Private MD: Dario Oviedo R ED Physician Travis Pandya HPI: 08/23 21:00 This 48 yrs old Female presents to ER via Ambulatory with complaints of pm1 Diverticulitis. 21:00 The patient presents with abdominal pain in the left lower quadrant. Onset: The pm1 symptoms/episode began/occurred this morning. The symptoms do not radiate. Associated signs and symptoms: Pertinent negatives: nausea, vomiting, and diarrhea. The symptoms are described as sharp. Modifying factors: The symptoms are alleviated by nothing, the symptoms are aggravated by nothing. Severity of pain: in the emergency department the pain is actually worse. The patient has experienced similar episodes in the past, a few times, today's symptoms are similar, to when the patient was apparently diagnosed with diverticulitis . The patient has been recently seen by a physician: Dr. Lacey follow up for diverticulitis resolution. patient with diverticulitis diagnosis in May 2018 and patient reports complete resolution of symptoms from that episode on . She has had no abdominal pain since until this morning. Feels like her diverticulitis . PROGRAMMING INTERNSHIP: 19:40 LMP N/A - Post-menopause ed1 Historical: - Allergies: 19:40 No Known Allergies; ed1 - Home Meds: 19:40 Unable to obtain [Active]; ed1 - PMHx: 19:40 Diverticulitis; GERD; Hernia; Ulcers; ed1 - PSHx: 19:40 None; ed1 - Immunization history:: Adult Immunizations up to date. - Social history:: Smoking status: Patient/guardian denies using tobacco. - Ebola Screening: : Patient negative for fever greater than or equal to 101.5 degrees Fahrenheit, and additional compatible Ebola Virus Disease symptoms Patient denies exposure to infectious person Patient denies travel to an Ebola-affected area in the 21 days before illness onset No symptoms or risks identified at this time. ROS: 21:00 Constitutional: Negative for fever, chills, and weight loss, Eyes: Negative for injury, pm1 pain, redness, and discharge, ENT: Negative for injury, pain, and discharge, Neck: Negative for injury, pain, and swelling, Cardiovascular: Negative for chest pain, palpitations, and edema, Respiratory: Negative for shortness of breath, cough, wheezing, and pleuritic chest pain. 21:00 Back: Negative for injury and pain, : Negative for injury, bleeding, discharge, and swelling, MS/Extremity: Negative for injury and deformity, Skin: Negative for injury, rash, and discoloration, Neuro: Negative for headache, weakness, numbness, tingling, and seizure. 21:00 Abdomen/GI: Positive for abdominal pain, Negative for nausea, vomiting, and diarrhea. Exam: 21:00 Constitutional: This is a well developed, well nourished patient who is awake, alert, pm1 and in no acute distress. Head/Face: Normocephalic, atraumatic. Eyes: Pupils equal round and reactive to light, extra-ocular motions intact. Lids and lashes normal. Conjunctiva and sclera are non-icteric and not injected. Cornea within normal limits. Periorbital areas with no swelling, redness, or edema. ENT: Nares patent. No nasal discharge, no septal abnormalities noted. Tympanic membranes are normal and external auditory canals are clear. Oropharynx with no redness, swelling, or masses, exudates, or evidence of obstruction, uvula midline. Mucous membranes moist. Neck: Trachea midline, no thyromegaly or masses palpated, and no cervical lymphadenopathy. Supple, full range of motion without nuchal rigidity, or vertebral point tenderness. No Meningismus. Chest/axilla: Normal chest wall appearance and motion. Nontender with no deformity. No lesions are appreciated. Cardiovascular: Regular rate and rhythm with a normal S1 and S2. No gallops, murmurs, or rubs. Normal PMI, no JVD. No pulse deficits. Respiratory: Lungs have equal breath sounds bilaterally, clear to auscultation and percussion. No rales, rhonchi or wheezes noted. No increased work of breathing, no retractions or nasal flaring. Back: No spinal tenderness. No costovertebral tenderness. Full range of motion. Skin: Warm, dry with normal turgor. Normal color with no rashes, no lesions, and no evidence of cellulitis. MS/ Extremity: Pulses equal, no cyanosis. Neurovascular intact. Full, normal range of motion. 21:00 Abdomen/GI: Inspection: abdomen appears normal, Bowel sounds: normal, Palpation: soft, mild abdominal tenderness, in the left lower quadrant, mass, is not appreciated, rebound tenderness, is not appreciated. 21:00 Neuro: Orientation: is normal, Motor: is normal, moves all fours. Vital Signs: 19:40 BP 126 / 79; Pulse 76; Resp 18; Temp 97.2(TE); Pulse Ox 98% on R/A; Weight 99.34 kg; ed1 Height 5 ft. 6 in. (167.64 cm); Pain 10/10; 20:30 BP 129 / 75; Pulse 69; Resp 18 S; Pulse Ox 96% on R/A; cc3 21:30 BP 130 / 75; Pulse 64; Resp 17 S; Pulse Ox 97% on R/A; cc3 22:00 BP 123 / 74; Pulse 61; Resp 17 S; Pulse Ox 96% on R/A; cc3 23:20 BP 125 / 77; Pulse 63; Resp 16 S; Pulse Ox 97% on R/A; cc3 08/24 00:30 BP 123 / 86; Pulse 69; Resp 17 S; Pulse Ox 97% on R/A; cc3 08/23 19:40 Body Mass Index 35.35 (99.34 kg, 167.64 cm) ed1 MDM: 08/23 20:07 Patient medically screened. pm1 20:12 Data reviewed: vital signs. Data interpreted: Pulse oximetry: on room air is 98 %. pm1 Interpretation: normal. 23:00 ED course: Patient offered admission. Patient states that she feels comfortable going pm1 home because she knows how to take the antibiotics and actually requested IV loading does of antibiotics prior to going home. 23:50 Counseling: I had a detailed discussion with the patient and/or guardian regarding: the pm1 historical points, exam findings, and any diagnostic results supporting the discharge/admit diagnosis, lab results, radiology results, the need for outpatient follow up, for definitive care, a project assistant, to return to the emergency department if symptoms worsen or persist or if there are any questions or concerns that arise at home. 08/23 20:13 Order name: Basic Metabolic Panel pm1 08/23 20:13 Order name: CBC with Diff pm1 08/23 20:13 Order name: Creatinine for Radiology pm08/23 20:13 Order name: Hepatic Function pm08/23 20:13 Order name: Lipase pm08/23 20:13 Order name: Urine Microscopic Only; Complete Time: 21:27 pm1 08/23 20:13 Order name: Basic Metabolic Panel; Complete Time: 21:27 EDMS 08/23 20:13 Order name: CBC with Automated Diff; Complete Time: 21:27 EDCA 08/23 20:13 Order name: Creatinine (Radiology Only); Complete Time: 21:27 EDMS 08/23 20:13 Order name: Liver (Hepatic) Function; Complete Time: 21:27 EDMS 08/23 20:13 Order name: Lipase; Complete Time: 21:27 EDCA 08/23 20:14 Order name: CT Abd/Pelvis - W/Contrast: IV contrast only pm08/23 20:48 Order name: Urine Dipstick--Ancillary (enter results); Complete Time: 21:27 [facility] 08/23 20:48 Order name: Urine --Ancillary (enter results); Complete Time: 21:27 [facility] 08/23 20:13 Order name: IV Saline Lock; Complete Time: 20:51 pm1 08/23 20:13 Order name: Labs collected and sent; Complete Time: 20:51 pm1 08/23 20:13 Order name: Urine Dipstick-Ancillary (obtain specimen); Complete Time: 20:52 pm1 08/23 20:13 Order name: Urine Test (obtain specimen); Complete Time: 20:52 pm1 Administered Medications: 21:00 Drug: morphine 4 mg Route: IVP; Site: right antecubital; cc3 21:30 Follow up: Response: No adverse reaction; Pain is decreased cc3 21:05 Drug: Zofran 4 mg Route: IVP; Site: right antecubital; cc3 21:30 Follow up: Response: No adverse reaction; Nausea is decreased cc3 23:40 Drug: Cipro 500 mg Route: PO; cc3 08/24 00:00 Follow up: Response: No adverse reaction cc3 08/23 23:40 Drug: Bentyl 20 mg Route: PO; cc3 08/24 00:30 Follow up: Response: No adverse reaction; Pain is decreased cc3 08/23 23:45 Drug: Flagyl 500 mg Volume: 100 ml; Route: IVPB; Rate: 200 ml/hr; Infused Over: 30 cc3 mins; Site: right antecubital; 08/24 00:20 Follow up: Response: No adverse reaction; IV Status: Completed infusion; IV Intake: cc3 100ml Disposition: 01:56 Co-signature as Attending Physician, Travis Pandya MD. rn Disposition: 08/23/18 23:51 Discharged to Home. Impression: Diverticulitis of large intestine without perforation or abscess without bleeding. - Condition is Stable. - Discharge Instructions: Diverticulitis. - Prescriptions for Bentyl 20 mg Oral Tablet - take 1 tablet by ORAL route every 6 hours As needed; 20 tablet. Flagyl 500 mg Oral Tablet - take 1 tablet by ORAL route every 8 hours for 10 days; 30 tablet. Cipro 500 mg Oral Tablet - take 1 tablet by ORAL route every 12 hours for 10 days; 20 tablet. - Medication Reconciliation Form, Thank You Letter, Antibiotic Education, Prescription Opioid Use, Work release form form. - Follow up: Emergency Department; When: As needed; Reason: Worsening of condition. Follow up: Claudia Lacey MD; When: 2 - 3 days; Reason: Recheck today's complaints, Continuance of care, Re-evaluation by your physician. - Problem is new. - Symptoms have improved. Signatures: Dispatcher [employer] EDMS Travis Pandya MD MD rn Riggs, Erika, RN RN ed1 Miky Dillard NP STEEL PLACER pm1 Indira Mccloud cc3 Corrections: (The following items were deleted from the chart) 00:49 08/23 23:51 08/23/2018 23:51 Discharged to Home. Impression: Diverticulitis of large cc3 intestine without perforation or abscess without bleeding. Condition is Stable. Forms are Medication Reconciliation Form, Thank You Letter, Antibiotic Education, Prescription Opioid Use. Follow up: Emergency Department; When: As needed; Reason: Worsening of condition. Follow up: Claudia Lacey; When: 2 - 3 days; Reason: Recheck today's complaints, Continuance of care, Re-evaluation by your physician. Problem is new. Symptoms have improved. pm1
--- NOTE | 2018-08-23 23:52 | ER ---
Nurse's Notes [facility] Name: Shyann Alicia Age: 48 yrs Sex: Female : 1970 Arrival Date: 08/23/2018 Time: 19:30 Bed 14 Private MD: Dario Oviedo R Diagnosis: Diverticulitis of large intestine without perforation or abscess without bleeding Presentation: 08/23 19:37 Presenting complaint: Patient states: My diverticulitis is back. My GI doctor called ed1 Saturday after and told me my stool sample had E. coli bacteria in it. Transition of care: patient was not received from another setting of care. Onset of symptoms was August 23, 2018. Risk Assessment: Do you want to hurt yourself or someone else? Patient reports no desire to harm self or others. Initial Sepsis Screen: Does the patient meet any 2 criteria? No. Patient's initial sepsis screen is negative. Does the patient have a suspected source of infection? No. Patient's initial sepsis screen is negative. Care prior to arrival: Medication(s) given: zofran. 19:37 Method Of Arrival: Ambulatory ed1 19:37 Acuity: LONG 3 ed1 Triage Assessment: 19:40 General: Appears in no apparent distress. Behavior is calm, cooperative. Pain: ed1 Complains of pain in abdomen Pain currently is 10 out of 10 on a pain scale. QUALITY HEAD: 19:40 LMP N/A - Post-menopause ed1 Historical: - Allergies: 19:40 No Known Allergies; ed1 - Home Meds: 19:40 Unable to obtain [Active]; ed1 - PMHx: 19:40 Diverticulitis; GERD; Hernia; Ulcers; ed1 - PSHx: 19:40 None; ed1 - Immunization history:: Adult Immunizations up to date. - Social history:: Smoking status: Patient/guardian denies using tobacco. - Ebola Screening: : Patient negative for fever greater than or equal to 101.5 degrees Fahrenheit, and additional compatible Ebola Virus Disease symptoms Patient denies exposure to infectious person Patient denies travel to an Ebola-affected area in the 21 days before illness onset No symptoms or risks identified at this time. Screenin:15 Abuse screen: Denies threats or abuse. Denies injuries from another. Nutritional cc3 screening: No deficits noted. Tuberculosis screening: No symptoms or risk factors identified. Fall Risk Ambulatory Aid- None/Bed Rest/Nurse Assist (0 pts). Gait- Normal/Bed Rest/Wheelchair (0 pts) Mental Status- Oriented to own ability (0 pts). Assessment: 20:15 Reassessment: Patient appears in no apparent distress at this time. Patient and/or cc3 family updated on plan of care and expected duration. Pain level reassessed. Patient is alert, oriented x 3, equal unlabored respirations, skin warm/dry/pink. 21:18 Reassessment: Patient appears in no apparent distress at this time. Patient and/or cc3 family updated on plan of care and expected duration. Pain level reassessed. Patient is alert, oriented x 3, equal unlabored respirations, skin warm/dry/pink. 22:25 Reassessment: Patient appears in no apparent distress at this time. Patient and/or cc3 family updated on plan of care and expected duration. Pain level reassessed. Patient is alert, oriented x 3, equal unlabored respirations, skin warm/dry/pink. 23:16 Reassessment: Patient appears in no apparent distress at this time. Patient and/or cc3 family updated on plan of care and expected duration. Pain level reassessed. Patient is alert, oriented x 3, equal unlabored respirations, skin warm/dry/pink. 08/24 00:40 Reassessment: Patient appears in no apparent distress at this time. Patient and/or cc3 family updated on plan of care and expected duration. Pain level reassessed. Patient is alert, oriented x 3, equal unlabored respirations, skin warm/dry/pink. PEDRO Dillard discharged the patient home with prescription given. IV cannula removed and patient left ER vitally stable and ambulatory. Patient denies pain at this time. Patient states feeling better. Patient states symptoms have improved. Vital Signs: 08/23 19:40 BP 126 / 79; Pulse 76; Resp 18; Temp 97.2(TE); Pulse Ox 98% on R/A; Weight 99.34 kg; ed1 Height 5 ft. 6 in. (167.64 cm); Pain 10/10; 20:30 BP 129 / 75; Pulse 69; Resp 18 S; Pulse Ox 96% on R/A; cc3 21:30 BP 130 / 75; Pulse 64; Resp 17 S; Pulse Ox 97% on R/A; cc3 22:00 BP 123 / 74; Pulse 61; Resp 17 S; Pulse Ox 96% on R/A; cc3 23:20 BP 125 / 77; Pulse 63; Resp 16 S; Pulse Ox 97% on R/A; cc3 08/24 00:30 BP 123 / 86; Pulse 69; Resp 17 S; Pulse Ox 97% on R/A; cc3 08/23 19:40 Body Mass Index 35.35 (99.34 kg, 167.64 cm) ed1 ED Course: 08/23 19:30 Patient arrived in ED. as 19:30 Dario Oviedo MD is Private Physician. as 19:39 Triage completed. ed1 20:03 Miky Dillard NP is PHCP. pm1 20:03 Travis Pandya MD is Attending Physician. pm1 20:15 Indira Mccloud is Primary Nurse. cc3 20:15 Arm band placed on right wrist. Patient notified of wait time. cc3 20:15 Patient has correct armband on for positive identification. Placed in gown. Bed in low cc3 position. Call light in reach. Side rails up X 1. groundwater monitoring technician on. Pulse ox on. NIBP on. 20:40 Inserted saline lock: 20 gauge in right antecubital area, using aseptic technique. oe Blood collected. 20:52 Urine Microscopic Only Sent. oe 20:53 Radiology exam delayed due to lab results not completed at this time. (BUN/Creatinine). mw3 21:[address] mw3 22:18 CT Abd/Pelvis - W/Contrast: IV contrast only In Process Unspecified. EDMS 23:50 Claudia Lacey MD is Referral Physician. pm1 08/24 00:40 No provider procedures requiring assistance completed. IV discontinued, intact, cc3 bleeding controlled, No redness/swelling at site. Pressure dressing applied. Administered Medications: 08/23 21:00 Drug: morphine 4 mg Route: IVP; Site: right antecubital; cc3 21:30 Follow up: Response: No adverse reaction; Pain is decreased cc3 21:05 Drug: Zofran 4 mg Route: IVP; Site: right antecubital; cc3 21:30 Follow up: Response: No adverse reaction; Nausea is decreased cc3 23:40 Drug: Cipro 500 mg Route: PO; cc3 08/24 00:00 Follow up: Response: No adverse reaction cc3 08/23 23:40 Drug: Bentyl 20 mg Route: PO; cc3 08/24 00:30 Follow up: Response: No adverse reaction; Pain is decreased cc3 08/23 23:45 Drug: Flagyl 500 mg Volume: 100 ml; Route: IVPB; Rate: 200 ml/hr; Infused Over: 30 cc3 mins; Site: right antecubital; 08/24 00:20 Follow up: Response: No adverse reaction; IV Status: Completed infusion; IV Intake: cc3 100ml Intake: 00:20 IV: 100ml; Total: 100ml. cc3 Outcome: 08/23 23:51 Discharge ordered by . pm1 08/24 00:40 Discharged to home ambulatory. cc3 Condition: stable Discharge instructions given to patient, Instructed on discharge instructions, follow up and referral plans. medication usage, Demonstrated understanding of instructions, follow-up care, medications, Prescriptions given X 3. 00:49 Patient left the ED. cc3 Signatures: Dispatcher [employer] EDMS Anay Guzman Erika RN RN ed1 Miky Dillard NP SPINNING ROOM WORKER pm1 Devyn Rich Michelle mw3 Indira Mccloud cc3
[2018-08-24] MEDS ORDERED: DICYCLOMINE HCL 10 MG CAP ONE (00:01)
[2018-08-24] MEDS ORDERED: CIPROFLOXACIN HCL 500 MG TAB ONE (00:01)
[2018-08-24] MEDS ORDERED: METRONIDAZOLE 500mg IVPB 500 MG/100 ML BAG IV ONE (00:01)
--- NOTE | 2018-08-25 11:40 | RAD REPORT ---
EXAM DESCRIPTION: CT - Abdomen Pelvis W Contrast - 08/23/2018 10:17 pm CLINICAL HISTORY: ABD PAIN COMPARISON: None Available TECHNIQUE: Contiguous axial images of the abdomen and pelvis were obtained after the administration of intravenous contrast followed by reconstruction images.This exam was performed according to our de partmental dose-optimization program, which includes automated exposure control, adjustment of the mA and/or kV according to patient size and/or use of iterative reconstruction technique. FINDINGS: There is a cyst or calyceal diverticulum at the medial aspect of the left kidney. There is colonic diverticulosis. There is moderate thickening of the wall of the distal descending colon and sigmoid colon with surrou nding soft tissue stranding of the fat. There is diverticulosis in this region, and findings are most consistent with diverticulitis. Neoplasm or ischemia are less likely. There is a small amount of free fluid in the pelvis. The liver, spleen, pancreas and kidneys are otherwise within normal limits. The gallbladder is unremarkable. Adrenal glands are within normal limits. Aorta is normal in caliber and tapering. No free air. No bowel obstruction. The appendix appears normal. No evidence of periappendiceal inflammation. IMPRESSION: Findings most consistent with diverticulitis. Electronically signed by: Harshal Lopez 08/23/2018 10:38 PM CDT Due to temporary technical issues with the PACS/Fluency reporting system, reports are being signed by the in house radiologist as a courtesy to ensure prompt reporting. The interpreting radiologist is f ully responsible for the content of the report.
== END 2018-08-24 00:49 | disposition home or self-care (01) ==
LOC: ER 19:28
DX: K57.32 Diverticulitis of large intestine without perforation or abscess without bleeding (principal); K21.9 Gastro-esophageal reflux disease without esophagitis
CPT/HCPCS: 36415; 74177; 80048; 80076; 81003; 81015; 81025; 83690; 85025; 96365; 96375; 99285; J2405; Q9967

== ENCOUNTER 2018-09-18 04:41 | Emergency (ER) | payer BC ==
[2018-09-18] MEDS ORDERED: levoFLOXacin 250 MG TAB ONE (05:24)
[2018-09-18] MEDS ORDERED: metroNIDAZOLE 500 MG TABLET ONE (05:24)
--- NOTE | 2018-09-18 06:03 | EDPHYS ---
Physician Documentation [facility] Name: Shyann Alicia Age: 48 yrs Sex: Female : 1970 Arrival Date: 09/18/2018 Time: 04:42 Bed 14 Private MD: Dario Oviedo R ED Physician Travis Pandya HPI: 09/18 05:58 This 48 yrs old Female presents to ER via Ambulatory with complaints of rn Diverticulitis flare up. 05:58 The patient presents with abdominal pain in the left lower quadrant. Onset: The rn symptoms/episode began/occurred yesterday. The symptoms do not radiate. Associated signs and symptoms: none. Pertinent negatives: nausea and vomiting, blood in stools, diarrhea, fever. Modifying factors: The symptoms are alleviated by nothing, the symptoms are aggravated by touching the area. Severity of pain: At its worst the pain was mild in the emergency department the pain is unchanged. The patient has experienced similar episodes in the past. Reports several episodes of diverticulitis flares, reports pain returns as soon as stops abx, has had 2-3 episodes weeks apart, sees GI and they keep giving her more abx, has had colonoscopy and was normal. Denies new fever/vomiting/diarrhea, but abd pain identical to previous episodes. . Historical: - Allergies: 04:46 No Known Allergies; jb4 - Home Meds: 04:46 Adipex-P 37.5 mg Oral tab 0.5 tab once daily [Active]; Protonix 20 mg Oral TbEC 1 tab jb4 once daily [Active]; mesalamine oral oral [Active]; - PMHx: 04:46 Diverticulitis; GERD; Hernia; Ulcers; Ovarian cyst; jb4 - PSHx: 04:46 ovarian cyst removal; jb4 - Immunization history:: Adult Immunizations up to date. - Social history:: Smoking status: Patient/guardian denies using tobacco, Patient/guardian denies using alcohol. - Ebola Screening: : No symptoms or risks identified at this time. - Family history:: not pertinent. - Hospitalizations: : No recent hospitalization is reported. ROS: 05:58 Constitutional: Negative for fever, chills, and weight loss, Eyes: Negative for injury, rn pain, redness, and discharge, Neck: Negative for injury, pain, and swelling, Cardiovascular: Negative for chest pain, palpitations, and edema, Respiratory: Negative for shortness of breath, cough, wheezing, and pleuritic chest pain, Abdomen/GI: + abd pain, negative for vomiting/diarrhea MS/Extremity: Negative for injury and deformity, Skin: Negative for injury, rash, and discoloration, Neuro: Negative for headache, weakness, numbness, tingling, and seizure. Exam: 05:58 Constitutional: This is a well developed, well nourished patient who is awake, alert, rn and in no acute distress. Head/Face: Normocephalic, atraumatic. ENT: MMM Respiratory: No increased work of breathing, no retractions or nasal flaring. Abdomen/GI: soft, + mild LLQ tenderness Back: No spinal tenderness. No costovertebral tenderness. Full range of motion. MS/ Extremity: Pulses equal, no cyanosis. Neurovascular intact. Full, normal range of motion. Equal circumference. Neuro: Awake and alert, GCS 15, oriented to person, place, time, and situation. Cranial nerves II-XII grossly intact. Motor strength 5/5 in all extremities. Sensory grossly intact. Vital Signs: 04:46 BP 138 / 79; Pulse 64; Resp 16; Temp 98.1(O); Pulse Ox 98% on R/A; Weight 95.71 kg (R); jb4 Height 5 ft. 6 in. (167.64 cm) (R); Pain 10/10; 05:45 BP 126 / 69; Pulse 61; Resp 16; Pulse Ox 95% on R/A; jb4 04:46 Body Mass Index 34.06 (95.71 kg, 167.64 cm) jb4 MDM: 04:49 Patient medically screened. rn 05:58 Differential diagnosis: diverticulitis, non-specific abd pain. Data reviewed: vital rn signs, nurses notes, and as a result, I will discharge patient. Counseling: I had a detailed discussion with the patient and/or guardian regarding: the historical points, exam findings, and any diagnostic results supporting the discharge/admit diagnosis, the need for outpatient follow up, to return to the emergency department if symptoms worsen or persist or if there are any questions or concerns that arise at home. Special discussion: Based on the patient's Hx, exam, and Dx evaluation, there is no indication for emergent surgery or inpatient Tx. It is understood by the patient/guardian that if the Sx's persist or worsen they need to return immediately for re-evaluation. I discussed with the patient/guardian in detail that at this point there is no indication for admission to the hospital. It is understood, however, that if the symptoms persist or worsen the patient needs to return immediately for re-evaluation. ED course: Pt would like to omit another ct abdomen and here for another round of abx, has contacted her GI doctor but has not gotten a call back, does not feel very sick. Requesting abx.. Administered Medications: 05:12 Drug: LevaQUIN 750 mg Route: PO; jb4 06:11 Follow up: Response: No adverse reaction jb4 05:12 Drug: Flagyl 500 mg Route: PO; jb4 06:11 Follow up: Response: No adverse reaction jb4 Disposition: 09/18/18 06:02 Discharged to Home. Impression: Diverticulitis of large intestine without perforation or abscess without bleeding. - Condition is Stable. - Discharge Instructions: Diverticulitis. - Prescriptions for Flagyl 500 mg Oral Tablet - take 1 tablet by ORAL route every 8 hours for 10 days; 30 tablet. Levaquin 500 mg Oral Tablet - take 1 tablet by ORAL route once daily for 10 days; 10 tablet. - Medication Reconciliation Form, Thank You Letter, Antibiotic Education, Prescription Opioid Use form. - Follow up: Claudia Lacey MD; When: As needed; Reason: Recheck today's complaints, Re-evaluation by your physician. - Problem is an ongoing problem. - Symptoms have improved. Signatures: Travis Pandya MD MD rn Bryson, James, RN RN jb4 Corrections: (The following items were deleted from the chart) 06:11 06:02 09/18/2018 06:02 Discharged to Home. Impression: Diverticulitis of large jb4 intestine without perforation or abscess without bleeding. Condition is Stable. Forms are Medication Reconciliation Form, Thank You Letter, Antibiotic Education, Prescription Opioid Use. Follow up: Claudia Lacey; When: As needed; Reason: Recheck today's complaints, Re-evaluation by your physician. Problem is an ongoing problem. Symptoms have improved. rn
--- NOTE | 2018-09-18 06:03 | ER ---
Nurse's Notes [facility] Name: Shyann Alicia Age: 48 yrs Sex: Female : 1970 Arrival Date: 09/18/2018 Time: 04:42 Bed 14 Private MD: Dario Oviedo R Diagnosis: Diverticulitis of large intestine without perforation or abscess without bleeding Presentation: 09/18 04:46 Presenting complaint: Patient states: I am having a diverticulitis flare up that jb4 started yesterday. 04:46 Transition of care: patient was not received from another setting of care. Onset of jb4 symptoms was September 17, 2018. Risk Assessment: Do you want to hurt yourself or someone else? Patient reports no desire to harm self or others. Initial Sepsis Screen: Does the patient meet any 2 criteria? No. Patient's initial sepsis screen is negative. Does the patient have a suspected source of infection? Yes: Acute abdominal pain. Care prior to arrival: None. 04:46 Method Of Arrival: Ambulatory jb4 04:46 Acuity: LONG 3 jb4 Historical: - Allergies: 04:46 No Known Allergies; jb4 - Home Meds: 04:46 Adipex-P 37.5 mg Oral tab 0.5 tab once daily [Active]; Protonix 20 mg Oral TbEC 1 tab jb4 once daily [Active]; mesalamine oral oral [Active]; - PMHx: 04:46 Diverticulitis; GERD; Hernia; Ulcers; Ovarian cyst; jb4 - PSHx: 04:46 ovarian cyst removal; jb4 - Immunization history:: Adult Immunizations up to date. - Social history:: Smoking status: Patient/guardian denies using tobacco, Patient/guardian denies using alcohol. - Ebola Screening: : No symptoms or risks identified at this time. - Family history:: not pertinent. - Hospitalizations: : No recent hospitalization is reported. Screenin:46 Abuse screen: Denies threats or abuse. Nutritional screening: No deficits noted. jb4 Tuberculosis screening: No symptoms or risk factors identified. Fall Risk None identified. Assessment: 04:46 General: Appears in no apparent distress. uncomfortable, Behavior is calm, cooperative, jb4 appropriate for age. Pain: Complains of pain in abdomen Pain does not radiate. Pain currently is 10 out of 10 on a pain scale. Quality of pain is described as burning, crampy, Pain began 1 day ago. Is continuous. Neuro: Level of Consciousness is awake, alert, obeys commands, Oriented to person, place, time, situation. Cardiovascular: Patient's skin is warm and dry. Respiratory: Airway is patent Respiratory effort is even, unlabored, Respiratory pattern is regular, symmetrical. GI: Reports lower abdominal pain, upper abdominal pain. : No signs and/or symptoms were reported regarding the genitourinary system. EENT: No signs and/or symptoms were reported regarding the EENT system. Derm: Skin is intact, Skin is pink, warm \T\ dry. Musculoskeletal: Circulation, motion, and sensation intact. 05:53 Reassessment: Patient appears in no apparent distress at this time. Patient and/or jb4 family updated on plan of care and expected duration. Pain level reassessed. Patient is alert, oriented x 3, equal unlabored respirations, skin warm/dry/pink. Vital Signs: 04:46 BP 138 / 79; Pulse 64; Resp 16; Temp 98.1(O); Pulse Ox 98% on R/A; Weight 95.71 kg (R); jb4 Height 5 ft. 6 in. (167.64 cm) (R); Pain 10/10; 05:45 BP 126 / 69; Pulse 61; Resp 16; Pulse Ox 95% on R/A; jb4 04:46 Body Mass Index 34.06 (95.71 kg, 167.64 cm) jb4 ED Course: 04:42 Patient arrived in ED. am2 04:43 Dario Oviedo MD is Private Physician. am2 04:46 Venkat Baldwin, RN is Primary Nurse. jb4 04:46 Arm band placed on right wrist. jb4 04:46 Patient has correct armband on for positive identification. Placed in gown. Bed in low jb4 position. Call light in reach. Side rails up X 1. Pulse ox on. NIBP on. 04:49 Travis Pandya MD is Attending Physician. rn 04:53 Triage completed. jb4 06:02 Claudia Lacey MD is Referral Physician. rn 06:10 No provider procedures requiring assistance completed. Patient did not have IV access jb4 during this emergency room visit. Administered Medications: 05:12 Drug: LevaQUIN 750 mg Route: PO; jb4 06:11 Follow up: Response: No adverse reaction jb4 05:12 Drug: Flagyl 500 mg Route: PO; jb4 06:11 Follow up: Response: No adverse reaction jb4 Outcome: 06:02 Discharge ordered by . rn 06:10 Discharged to home ambulatory. jb4 06:10 Condition: stable 06:10 Discharge instructions given to patient, Instructed on discharge instructions, follow up and referral plans. medication usage, Demonstrated understanding of instructions, follow-up care, medications, Prescriptions given X 2. 06:11 Patient left the ED. jb4 Signatures: Travis Pandya MD MD rn Bryson, James, RN RN jb4 Inessa Pham
== END 2018-09-18 06:11 | disposition home or self-care (01) ==
LOC: ER 04:41
DX: K57.32 Diverticulitis of large intestine without perforation or abscess without bleeding (principal); K21.9 Gastro-esophageal reflux disease without esophagitis
CPT/HCPCS: 99283

== ENCOUNTER 2018-11-08 04:15 | Emergency (ER) | payer BC ==
[2018-11-08] MEDS ORDERED: MORPHINE 4 MG/ML SYR ONE ×2 (05:03→05:53)
[2018-11-08] MEDS ORDERED: ONDANSETRON 4 MG/2 ML VIAL ONE ×2 (05:04→05:54)
[2018-11-08 05:10] LABS: Absolute Lymphocytes (CBC) 1.5 K/uL (0.7-4.9); Eosinophils % 1.3 % (0-4.4); Hematocrit 41.9 % (36.0-45.0); Lymphocytes % 16.3 % (15.3-44.8); MPV 9.8 fL (7.6-11.3); Monocytes % 6.1 % (3.3-12.3); RBC Red Blood Cell Count 4.64 M/uL (3.86-4.86)
[2018-11-08 05:20] LABS: Albumin 3.5 g/dL (3.4-5.0); Bilirubin Direct 0.1 mg/dL (0-0.2); Bilirubin Total 0.3 mg/dL (0.2-1.0); Potassium 3.7 mmol/L (3.5-5.1); Protein, Total 7.3 g/dL (6.4-8.2)
[2018-11-08] MEDS ORDERED: CIPROFLOXACIN 400mg IV 400 MG/200 ML BAG IV ONE (05:53)
[2018-11-08] MEDS ORDERED: METRONIDAZOLE 500mg IVPB 500 MG/100 ML BAG IV ONE (05:53)
--- NOTE | 2018-11-08 06:57 | ER ---
Nurse's Notes [facility] Name: Shyann Alicia Age: 48 yrs Sex: Female : 1970 Arrival Date: 11/08/2018 Time: 04:16 Bed 8 Private MD: Dario Oviedo R Diagnosis: Abdominal and pelvic pain Presentation: 11/08 04:34 Presenting complaint: Patient states: she has hx of diverticulitis but it has been bb under control for the last 2 months until she woke up this morning with severe left abdominal pain, nausea, and pressure. Transition of care: patient was not received from another setting of care. Onset of symptoms was November 08, 2018. Risk Assessment: Do you want to hurt yourself or someone else? Patient reports no desire to harm self or others. Initial Sepsis Screen: Does the patient meet any 2 criteria? No. Patient's initial sepsis screen is negative. Does the patient have a suspected source of infection? No. Patient's initial sepsis screen is negative. Care prior to arrival: None. 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 - Social history:: Smoking status: Patient/guardian denies using tobacco. - Ebola Screening: : No symptoms or risks identified at this time. Screenin:07 Abuse screen: Denies threats or abuse. Nutritional screening: No deficits noted. jd3 Tuberculosis screening: No symptoms or risk factors identified. Fall Risk IV access (20 points). Ambulatory Aid- None/Bed Rest/Nurse Assist (0 pts). Gait- Normal/Bed Rest/Wheelchair (0 pts) Mental Status- Oriented to own ability (0 pts). Total Vásquez Fall Scale indicates No Risk (0-24 pts). Assessment: 04:30 General: Appears in no apparent distress. uncomfortable, Behavior is calm, cooperative, jd3 appropriate for age. Pain: Complains of pain in right lower quadrant and left lower quadrant Quality of pain is described as crampy, pressure, sharp. Neuro: Level of Consciousness is awake, alert, obeys commands, Oriented to person, place, time, situation. Cardiovascular: Denies chest pain, shortness of breath, Capillary refill < 3 seconds Patient's skin is warm and dry. Respiratory: Airway is patent Respiratory effort is even, unlabored, Respiratory pattern is regular, symmetrical, Denies cough, shortness of breath. GI: Abdomen is round non-distended, Abd is soft X 4 quads Abdomen is tender to palpation in right lower quadrant and left lower quadrant Reports nausea, Patient currently denies constipation, diarrhea, vomiting. : No signs and/or symptoms were reported regarding the genitourinary system. EENT: No signs and/or symptoms were reported regarding the EENT system. Derm: Skin is intact, Skin is dry, Skin is normal, Skin temperature is warm. Musculoskeletal: Circulation, motion, and sensation intact. Range of motion: intact in all extremities. 05:47 Reassessment: Patient appears in no apparent distress at this time. Patient and/or jd3 family updated on plan of care and expected duration. Pain level reassessed. Patient is alert, oriented x 3, equal unlabored respirations, skin warm/dry/pink. reports slightly decreased pain sensation. 06:45 Reassessment: Patient appears in no apparent distress at this time. Patient and/or jd3 family updated on plan of care and expected duration. Pain level reassessed. Patient is alert, oriented x 3, equal unlabored respirations, skin warm/dry/pink. awaiting CT result. Patient states feeling better. 07:00 Reassessment: RECD REPORT FROM LORA FINE. 48YO WF P/W ABDOMINAL PAIN. D/C HELD bp PENDING ABX COMPLETION. 07:48 Reassessment: PT D/C HOME AMBULATORY. DX WITH ABDOMINAL PAIN. bp Vital Signs: 04:36 BP 126 / 106; Pulse 73; Resp 18 S; Temp 98.1(O); Pulse Ox 99% on R/A; Weight 94.35 kg bb (R); Height 5 ft. 6 in. (167.64 cm) (R); Pain 10/10; 05:47 BP 122 / 91; Pulse 73; Resp 17 S; Pulse Ox 97% on R/A; Pain 7/10; jd3 06:46 BP 98 / 51; Pulse 70; Resp 15 S; Pulse Ox 96% on R/A; jd3 07:30 BP 110 / 61; Pulse 72; Resp 16; Pulse Ox 94% ; bp 04:36 Body Mass Index 33.57 (94.35 kg, 167.64 cm) bb ED Course: 04:16 Patient arrived in ED. am2 04:16 Dario Oviedo MD is Private Physician. am2 04:24 Garfield Delaney, BABATUNDE is Primary Nurse. rr5 04:30 Inserted saline lock: 20 gauge in right antecubital area, using aseptic technique. jd3 Blood collected. 04:36 Triage completed. bb 04:36 Arm band placed on Patient placed in an exam room, on a stretcher, on pulse oximetry. bb 04:41 Ramses Combs MD is Attending Physician. kdr 05:07 Patient has correct armband on for positive identification. Placed in gown. Bed in low jd3 position. Call light in reach. Side rails up X2. 06:11 Luigi Rojas RN is Primary Nurse. jd3 06:14 CT Abd/Pelvis - IV Contrast Only In Process Unspecified. EDMS 06:55 Dario Oviedo MD is Referral Physician. kdr 06:55 Kenroy Vo MD is Referral Physician. kdr 06:55 Emerson Mcdowell MD is Referral Physician. kdr 07:03 Primary Nurse role handed off by Luigi Rojas RN bp 07:03 Carmelo Price, BABATUNDE is Primary Nurse. bp 07:04 Primary Nurse role handed off by Carmelo Price RN hj 07:04 Milind Mayorga, BABATUNDE is Primary Nurse. hj 07:49 No provider procedures requiring assistance completed. IV discontinued, intact, bp bleeding controlled, No redness/swelling at site. Pressure dressing applied. Administered Medications: 04:58 Drug: morphine 4 mg Route: IVP; Site: right antecubital; jd3 05:46 Follow up: Response: No adverse reaction jd3 04:58 Drug: Zofran 4 mg Route: IVP; Site: right antecubital; jd3 05:47 Follow up: Response: No adverse reaction jd3 05:46 Drug: morphine 4 mg Route: IVP; Site: right antecubital; jd3 06:42 Follow up: Response: No adverse reaction; Pain is decreased jd3 05:46 Drug: Zofran 4 mg Route: IVP; Site: right antecubital; jd3 06:42 Follow up: Response: No adverse reaction jd3 05:46 Drug: Flagyl 500 mg Volume: 100 ml; Route: IVPB; Rate: 200 ml/hr; Infused Over: 30 jd3 mins; Site: right antecubital; 06:43 Follow up: Response: No adverse reaction; IV Status: Completed infusion; IV Intake: jd3 100ml 06:42 Drug: Cipro 400 mg Volume: 200 ml; Route: IVPB; Infused Over: 60 mins; Site: right jd3 antecubital; 07:51 Follow up: IV Status: Completed infusion; IV Intake: 200ml bp Intake: 06:43 IV: 100ml; Total: 100ml. jd3 07:51 IV: 200ml; Total: 300ml. bp Outcome: 06:56 Discharge ordered by . kdr 07:49 Discharged to home ambulatory. bp 07:49 Condition: stable 07:49 Discharge instructions given to patient, Instructed on discharge instructions, follow up and referral plans. medication usage, Demonstrated understanding of instructions, follow-up care, medications, Prescriptions given X 5 07:52 Patient left the ED. bp Signatures: Dispatcher [employer] EDMS Ramses Combs MD MD kdr Ballard, Brenda, RN RN bb Joaquin, Henry RN BABATUNDE Inessa Pham am Luigi Rojas RN RN jd3 Peltier, Brian, RN RN bp Roque, Raymond RN RN rr5
--- NOTE | 2018-11-08 06:57 | EDPHYS ---
Physician Documentation [facility] Name: Shyann Alicia Age: 48 yrs Sex: Female : 1970 Arrival Date: 11/08/2018 Time: 04:16 Bed 8 Private MD: Dario Oviedo R ED Physician Ramses Combs HPI: 11/08 06:04 This 48 yrs old Female presents to ER via Ambulatory with complaints of kdr Abdominal Pain - diverticulitis. 06:04 The patient presents with abdominal pain in the left upper quadrant, in the left lower kdr quadrant. Onset: The symptoms/episode began/occurred suddenly, at 03:30. The symptoms radiate to the left flank. Associated signs and symptoms: Pertinent positives: nausea, Pertinent negatives: blood in stools, chest pain, constipation, diarrhea, dysuria, fever, headache, hematuria, palpitations, shortness of breath, vaginal discharge. The symptoms are described as achy, crampy. Modifying factors: The symptoms are alleviated by nothing, the symptoms are aggravated by. Severity of pain: At its worst the pain was moderate severe. The patient has experienced similar episodes in the past, multiple times. The patient has not recently seen a physician. 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 - Social history:: Smoking status: Patient/guardian denies using tobacco. - Ebola Screening: : No symptoms or risks identified at this time. ROS: 06:04 Constitutional: Negative for fever, chills, and weight loss, Eyes: Negative for injury, kdr pain, redness, and discharge, ENT: Negative for injury, pain, and discharge, Neck: Negative for injury, pain, and swelling, Cardiovascular: Negative for chest pain, palpitations, and edema, Respiratory: Negative for shortness of breath, cough, wheezing, and pleuritic chest pain, Back: Negative for injury and pain, : Negative for injury, bleeding, discharge, and swelling, MS/Extremity: Negative for injury and deformity, Skin: Negative for injury, rash, and discoloration, Neuro: Negative for headache, weakness, numbness, tingling, and seizure activity. Psych: Negative for depression, anxiety, suicide ideation, homicidal ideation, and hallucinations, Allergy/Immunology: Negative for hives, rash, and allergies, Endocrine: Negative for neck swelling, polydipsia, polyuria, polyphagia, and marked weight changes, Hematologic/Lymphatic: Negative for swollen nodes, abnormal bleeding, and unusual bruising. 06:04 Abdomen/GI: Positive for abdominal pain, nausea, flatulence, Negative for constipation, abdominal cramps, abdominal distension, anorexia, dysphagia, hematemesis, black/tarry stool, rectal pain. Exam: 06:04 Constitutional: This is a well developed, well nourished patient who is awake, alert, kdr and in no acute distress. Head/Face: Normocephalic, atraumatic. Eyes: Pupils equal round and reactive to light, extra-ocular motions intact. Lids and lashes normal. Conjunctiva and sclera are non-icteric and not injected. Cornea within normal limits. Periorbital areas with no swelling, redness, or edema. Neck: Trachea midline, no thyromegaly or masses palpated, and no cervical lymphadenopathy. Supple, full range of motion without nuchal rigidity, or vertebral point tenderness. No Meningismus. Chest/axilla: Normal chest wall appearance and motion. Nontender with no deformity. No lesions are appreciated. Cardiovascular: Regular rate and rhythm with a normal S1 and S2. No gallops, murmurs, or rubs. Normal PMI, no JVD. No pulse deficits. Respiratory: Lungs have equal breath sounds bilaterally, clear to auscultation and percussion. No rales, rhonchi or wheezes noted. No increased work of breathing, no retractions or nasal flaring. Back: No spinal tenderness. No costovertebral tenderness. Full range of motion. Skin: Warm, dry with normal turgor. Normal color with no rashes, no lesions, and no evidence of cellulitis. MS/ Extremity: Pulses equal, no cyanosis. Neurovascular intact. Full, normal range of motion. Neuro: Awake and alert, GCS 15, oriented to person, place, time, and situation. Cranial nerves II-XII grossly intact. Motor strength 5/5 in all extremities. Sensory grossly intact. Cerebellar exam normal. Normal gait. Psych: Awake, alert, with orientation to person, place and time. Behavior, mood, and affect are within normal limits. 06:04 Abdomen/GI: Inspection: obese Bowel sounds: active, diminished, in all quadrants, Palpation: soft, moderate abdominal tenderness, in the right lower quadrant and left lower quadrant. Vital Signs: 04:36 BP 126 / 106; Pulse 73; Resp 18 S; Temp 98.1(O); Pulse Ox 99% on R/A; Weight 94.35 kg bb (R); Height 5 ft. 6 in. (167.64 cm) (R); Pain 10/10; 05:47 BP 122 / 91; Pulse 73; Resp 17 S; Pulse Ox 97% on R/A; Pain 7/10; jd3 06:46 BP 98 / 51; Pulse 70; Resp 15 S; Pulse Ox 96% on R/A; jd3 07:30 BP 110 / 61; Pulse 72; Resp 16; Pulse Ox 94% ; bp 04:36 Body Mass Index 33.57 (94.35 kg, 167.64 cm) bb MDM: 06:04 Data reviewed: vital signs, nurses notes, lab test result(s), radiologic studies. kdr Counseling: I had a detailed discussion with the patient and/or guardian regarding: the historical points, exam findings, and any diagnostic results supporting the discharge/admit diagnosis, lab results, radiology results. 06:56 Patient medically screened. kdr 11/08 04:33 Order name: Basic Metabolic Panel [facility] 11/08 04:33 Order name: CBC with Diff [facility] 11/08 04:33 Order name: Creatinine for Radiology [facility] 11/08 04:33 Order name: Hepatic Function [facility] 11/08 04:33 Order name: Lipase [facility] 11/08 04:34 Order name: Basic Metabolic Panel [facility] 11/08 04:33 Order name: IV Saline Lock; Complete Time: 04:33 jd3 11/08 05:25 Order name: CT Abd/Pelvis - IV Contrast Only kdr 11/08 04:33 Order name: Labs collected and sent; Complete Time: 04:33 jd3 Administered Medications: 04:58 Drug: morphine 4 mg Route: IVP; Site: right antecubital; jd3 05:46 Follow up: Response: No adverse reaction jd3 04:58 Drug: Zofran 4 mg Route: IVP; Site: right antecubital; jd3 05:47 Follow up: Response: No adverse reaction jd3 05:46 Drug: morphine 4 mg Route: IVP; Site: right antecubital; jd3 06:42 Follow up: Response: No adverse reaction; Pain is decreased jd3 05:46 Drug: Zofran 4 mg Route: IVP; Site: right antecubital; jd3 06:42 Follow up: Response: No adverse reaction jd3 05:46 Drug: Flagyl 500 mg Volume: 100 ml; Route: IVPB; Rate: 200 ml/hr; Infused Over: 30 jd3 mins; Site: right antecubital; 06:43 Follow up: Response: No adverse reaction; IV Status: Completed infusion; IV Intake: jd3 100ml 06:42 Drug: Cipro 400 mg Volume: 200 ml; Route: IVPB; Infused Over: 60 mins; Site: right jd3 antecubital; 07:51 Follow up: IV Status: Completed infusion; IV Intake: 200ml bp Disposition: 11/08/18 06:56 Discharged to Home. Impression: Abdominal and pelvic pain. - Condition is Stable. - Discharge Instructions: Abdominal Pain, Adult, [id number]. - Prescriptions for Bentyl 20 mg Oral Tablet - take 1 tablet by ORAL route every 6 hours As needed; 20 tablet. Cipro 500 mg Oral Tablet - take 1 tablet by ORAL route every 12 hours for 10 days; 20 tablet. Flagyl 500 mg Oral Tablet - take 1 tablet by ORAL route every 6 hours for 10 days; 40 tablet. Zofran 4 mg Oral Tablet - take 1 tablet by ORAL route every 12 hours As needed; 6 tablet. Tramadol 50 mg Oral Tablet - take 1 tablet by ORAL route every 8 hours as needed; 12 tablet. - Medication Reconciliation Form, Thank You Letter, Antibiotic Education, Prescription Opioid Use, Work release form form. - Follow up: Dario Oviedo MD; When: 2 - 3 days; Reason: If symptoms return, Further diagnostic work-up, Recheck today's complaints, Continuance of care, Re-evaluation by your physician. Follow up: Kenroy Vo MD; When: 2 - 3 days; Reason: If symptoms return, Further diagnostic work-up, Recheck today's complaints, Continuance of care, Re-evaluation by your physician. Follow up: Emerson Mcdowell MD; When: 2 - 3 days; Reason: If symptoms return, Further diagnostic work-up, Recheck today's complaints, Continuance of care, Re-evaluation by your physician. Signatures: Dispatcher [employer] EDMS Ramses Combs MD MD kdr Adriana Luna RN RN bb Luigi Rojas RN RN jd3 Peltier, Brian, RN RN bp Corrections: (The following items were deleted from the chart) 07:52 06:56 11/08/2018 06:56 Discharged to Home. Impression: Abdominal and pelvic pain. bp Condition is Stable. Forms are Medication Reconciliation Form, Thank You Letter, Antibiotic Education, Prescription Opioid Use. Follow up: Dario Oviedo; When: 2 - 3 days; Reason: If symptoms return, Further diagnostic work-up, Recheck today's complaints, Continuance of care, Re-evaluation by your physician. Follow up: Kenroy Vo; When: 2 - 3 days; Reason: If symptoms return, Further diagnostic work-up, Recheck today's complaints, Continuance of care, Re-evaluation by your physician. Follow up: Emerson Mcdowell; When: 2 - 3 days; Reason: If symptoms return, Further diagnostic work-up, Recheck today's complaints, Continuance of care, Re-evaluation by your physician. kdr
--- NOTE | 2018-11-10 12:04 | RAD REPORT ---
EXAM DESCRIPTION: CT - Abdomen Pelvis W Contrast - 11/08/2018 7:20 am CLINICAL HISTORY: The patient is 48 years old and is Female; ABD PAIN TECHNIQUE: Axial computed tomography images of the abdomen and pelvis with intravenous contrast. S agittal and coronal reformatted images were created and reviewed. This CT exam was performed using one or more of the following dose reduction techniques: automated exposure control, adjustment of t he mA and/or kV according to patient size, and/or use of iterative reconstruction technique. COMPARISON: CT of the abdomen and pelvis August 23, 2018. FINDINGS: LUNG BASES: Unremarkable. No mass. No consolidation. ABDOMEN: LIVER: The liver is mildly fatty. GALLBLADDER AND BILE DUCTS: No calcified stones. No ductal dilation. PANCREAS: Mild fatty infiltration of the pancreas is noted. SPLEEN: Unremarkable. ADRENALS: Unremarkable. No mass. KIDNEYS AND URETERS: 2.3 cm left renal cyst/calyceal diverticulum is present. No follow-up imagi ng is recommended. The kidneys enhance symmetrically. There is no hydronephrosis or hydroureter of ei ther kidney. No obstructing renal or ureteral calculus is seen. STOMACH AND BOWEL: Scattered colonic diverticula are present throughout the colon. Colonic wall thickening with surrounding inflammatory stranding involving the distal descending/sigmoid colon is p resent. There is no evidence of diverticular abscess. The stomach is minimally distended. The small b owel is normal in caliber. Stool is present throughout the colon. PELVIS: APPENDIX: The appendix is normal in caliber without surrounding inflammation. BLADDER: Unremarkable. No mass. REPRODUCTIVE: A 1.7 cm left ovarian cyst is present. No follow-up imaging is recommended. The ut erus and right ovary are unremarkable. ABDOMEN and PELVIS: INTRAPERITONEAL SPACE: A small amount of free fluid is present within the right upper quadrant. No free air. BONES/JOINTS: No acute fracture. SOFT TISSUES: The soft tissues are normal. VASCULATURE: Unremarkable. No abdominal aortic aneurysm. LYMPH NODES: Unremarkable. No enlarged lymph nodes. IMPRESSION: 1. No significant change in the appearance of the distal descending and sigmoid colon suggestive of acute diverticulitis. No evidence of diverticular abscess. 2. Chronic findings as detailed above. Electronically signed by: Erika Luke MD 11/08/2018 6:44 AM CDT Due to temporary technical issues with the PACS/Fluency reporting system, reports are being signed by the in house radiologist as a courtesy to ensure prompt reporting. The interpreting radiologist is f ully responsible for the content of the report.
== END 2018-11-08 07:52 | disposition home or self-care (01) ==
LOC: ER 04:15
DX: R10.2 Pelvic and perineal pain (principal); K21.9 Gastro-esophageal reflux disease without esophagitis
CPT/HCPCS: 36415; 74177; 80048; 80076; 83690; 85025; 96365; 96367; 96375; 99284; J0744; J2405; Q9967

== ENCOUNTER 2019-04-10 01:26 | Emergency (ER) | payer BC ==
[2019-04-10] MEDS ORDERED: KETOROLAC 30 MG/ML INJ ONE (02:00)
[2019-04-10] MEDS ORDERED: CLINDAMYCIN HCL 150 MG CAP ONE (02:00)
--- NOTE | 2019-04-10 02:09 | EDPHYS ---
Physician Documentation [facility] Name: Shyann Alicia Age: 48 yrs Sex: Female : 1970 Arrival Date: 04/10/2019 Time: 01:28 Bed 7 Private MD: ED Physician Berto Flower HPI: 04/10 02:14 This 48 yrs old Female presents to ER via Ambulatory with complaints of tw4 Toothache. 02:14 The patient presents with broken tooth/teeth, pain. The problem is located in the upper tw4 right first bicuspid. 02:15 Onset: The symptoms/episode began/occurred 3 day(s) ago. Duration: The symptoms are tw4 continuous, and are steadily getting worse. Modifying factors: The symptoms are alleviated by nothing, the symptoms are aggravated by nothing. Severity of symptoms: At their worst the symptoms were moderate, in the emergency department the symptoms are unchanged. The patient has not experienced similar symptoms in the past. Historical: - Allergies: 01:43 No Known Allergies; tr5 - PMHx: 01:43 Diverticulitis; Ovarian cyst; GERD; Hernia; Ulcers; ADD/ADHD; tr5 - PSHx: 01:43 None; tr5 - Immunization history:: Adult Immunizations up to date. - Social history:: Smoking status: Patient/guardian denies using tobacco. - Ebola Screening: : No symptoms or risks identified at this time. ROS: 02:15 Cardiovascular: Negative for chest pain, palpitations, and edema, Respiratory: Negative tw4 for shortness of breath, cough, wheezing, and pleuritic chest pain, Abdomen/GI: Negative for abdominal pain, nausea, vomiting, diarrhea, and constipation. 02:15 ENT: Positive for dental pain, Negative for injury or acute deformity, drainage from ear(s), ear pain, foreign body sensation, Gum pain hearing loss, pulling at ears, Teeth pain tinnitus, nasal discharge, rhinorrhea, sinus congestion, sinus pain, sore throat, difficulty swallowing, difficulty handling secretions, hoarseness, acute changes. 02:15 All other systems are negative. tw4 Exam: 02:15 Constitutional: This is a well developed, well nourished patient who is awake, alert, tw4 and in no acute distress. Head/Face: Normocephalic, atraumatic. Chest/axilla: Normal chest wall appearance and motion. Nontender with no deformity. No lesions are appreciated. Cardiovascular: Regular rate and rhythm with a normal S1 and S2. No gallops, murmurs, or rubs. Normal PMI, no JVD. No pulse deficits. Respiratory: Lungs have equal breath sounds bilaterally, clear to auscultation and percussion. No rales, rhonchi or wheezes noted. No increased work of breathing, no retractions or nasal flaring. Abdomen/GI: Soft, non-tender, with normal bowel sounds. No distension or tympany. No guarding or rebound. No evidence of tenderness throughout. 02:15 ENT: External ear(s): are unremarkable, Nose: is normal, Mouth: is normal, Posterior pharynx: is normal, Dental exam: dental caries, that is moderate, diffusely. Vital Signs: 01:43 BP 148 / 89; Pulse 95; Resp 16; Temp 98.6(T); Pulse Ox 98% on R/A; Weight 97.07 kg; tr5 Height 5 ft. 6 in. (167.64 cm); 01:43 Body Mass Index 34.54 (97.07 kg, 167.64 cm) tr5 MDM: 01:41 Patient medically screened. tw4 02:15 Differential diagnosis: dental caries. Data reviewed: vital signs, nurses notes. Data tw4 interpreted: Pulse oximetry: Interpretation: normal. Counseling: I had a detailed discussion with the patient and/or guardian regarding: the historical points, exam findings, and any diagnostic results supporting the discharge/admit diagnosis. Special discussion: Based on the patient's history, exam and DX evaluation, there is no indication for emergent intervention or inpatient TX. It is understood by the patient/guardian that if the SXs persist or worsen they need to return immediately for re-evaluation. Administered Medications: 02:04 Drug: TORadol 60 mg Route: IM; Site: right gluteus; lp1 02:12 Follow up: Response: No adverse reaction; Medication administered at discharge. lp1 02:04 Drug: Cleocin 300 mg Route: PO; lp1 02:12 Follow up: Response: No adverse reaction; Medication administered at discharge. lp1 Disposition: 04/10/19 02:08 Discharged to Home. Impression: Dental caries, unspecified. - Condition is Stable. - Discharge Instructions: Dental Pain. - Prescriptions for Cleocin 300 mg Oral Capsule - take 1 capsule by ORAL route every 6 hours for 10 days; 40 capsule. Ibuprofen 800 mg Oral Tablet - take 1 tablet by ORAL route every 8 hours As needed take with food; 30 tablet. Tramadol 50 mg Oral Tablet - take 1 tablet by ORAL route every 8 hours as needed; 12 tablet. - Medication Reconciliation Form, Thank You Letter, Antibiotic Education, Prescription Opioid Use form. - Follow up: Private Physician; When: Upon discharge from the Emergency Department; Reason: Recheck today's complaints, Continuance of care. - Problem is new. - Symptoms have improved. Signatures: Nika Steel RN RN lp1 Berto Flower MD MD tw4 Petey Foster RN RN tr5 Corrections: (The following items were deleted from the chart) 02:15 02:08 04/10/2019 02:08 Discharged to Home. Impression: Dental caries, unspecified. lp1 Condition is Stable. Discharge Instructions: Dental Pain. Prescriptions for Cleocin 300 mg Oral Capsule - take 1 capsule by ORAL route every 6 hours for 10 days; 40 capsule, Ibuprofen 800 mg Oral Tablet - take 1 tablet by ORAL route every 8 hours As needed take with food; 30 tablet, Tramadol 50 mg Oral Tablet - take 1 tablet by ORAL route every 8 hours as needed; 12 tablet. and Forms are Medication Reconciliation Form, Thank You Letter, Antibiotic Education, Prescription Opioid Use. Follow up: Private Physician; When: Upon discharge from the Emergency Department; Reason: Recheck today's complaints, Continuance of care. Problem is new. Symptoms have improved. tw4
--- NOTE | 2019-04-10 02:09 | ER ---
Nurse's Notes [facility] Name: Shyann Alicia Age: 48 yrs Sex: Female : 1970 Arrival Date: 04/10/2019 Time: 01:28 Bed 7 Private MD: Diagnosis: Dental caries, unspecified Presentation: 04/10 01:40 Presenting complaint: Patient states: "I have a broken tooth my er right jaw that has tr5 been hurting me badly, and i can't get in to see the dentist until next week. I have been using Orgel and ibuprofen for pain, but nothing seems to help.". Transition of care: patient was not received from another setting of care. Onset of symptoms was April 10, 2019. Risk Assessment: Do you want to hurt yourself or someone else? Patient reports no desire to harm self or others. Initial Sepsis Screen: Does the patient meet any 2 criteria? No. Patient's initial sepsis screen is negative. Does the patient have a suspected source of infection? No. Patient's initial sepsis screen is negative. Care prior to arrival: None. 01:40 Method Of Arrival: Ambulatory tr5 01:40 Acuity: LONG 4 tr5 Historical: - Allergies: 01:43 No Known Allergies; tr5 - PMHx: 01:43 Diverticulitis; Ovarian cyst; GERD; Hernia; Ulcers; ADD/ADHD; tr5 - PSHx: 01:43 None; tr5 - Immunization history:: Adult Immunizations up to date. - Social history:: Smoking status: Patient/guardian denies using tobacco. - Ebola Screening: : No symptoms or risks identified at this time. Screenin:05 Abuse screen: Denies threats or abuse. Denies injuries from another. Nutritional lp1 screening: No deficits noted. Tuberculosis screening: No symptoms or risk factors identified. Fall Risk None identified. Assessment: 02:04 General: Appears in no apparent distress. Behavior is appropriate for age. Pain: lp1 Complains of pain in mouth Pain currently is 7 out of 10 on a pain scale. Neuro: No deficits noted. Cardiovascular: No deficits noted. Respiratory: No deficits noted. GI: No deficits noted. : No deficits noted. EENT: Dental caries noted in upper right first bicuspid (#5). Derm: Skin is pink, warm \\T\\ dry. Musculoskeletal: No deficits noted. Vital Signs: 01:43 BP 148 / 89; Pulse 95; Resp 16; Temp 98.6(T); Pulse Ox 98% on R/A; Weight 97.07 kg; tr5 Height 5 ft. 6 in. (167.64 cm); 01:43 Body Mass Index 34.54 (97.07 kg, 167.64 cm) tr5 ED Course: 01:28 Patient arrived in ED. cl3 01:40 Berto Flower MD is Attending Physician. tw4 01:42 Triage completed. tr5 01:43 Arm band placed on Patient placed. tr5 02:04 Nika Steel, RN is Primary Nurse. lp1 02:05 No provider procedures requiring assistance completed. Patient did not have IV access lp1 during this emergency room visit. 02:06 Patient has correct armband on for positive identification. lp1 Administered Medications: 02:04 Drug: TORadol 60 mg Route: IM; Site: right gluteus; lp1 02:12 Follow up: Response: No adverse reaction; Medication administered at discharge. lp1 02:04 Drug: Cleocin 300 mg Route: PO; lp1 02:12 Follow up: Response: No adverse reaction; Medication administered at discharge. lp1 Outcome: 02:08 Discharge ordered by . tw4 02:12 Discharged to home ambulatory. lp1 02:12 Condition: good 02:12 Discharge instructions given to patient, Instructed on discharge instructions, follow up and referral plans. medication usage, Demonstrated understanding of instructions, follow-up care, medications, Prescriptions given X 3. 02:15 Patient left the ED. lp1 Signatures: Nika Steel RN RN lp1 Berto Flower MD MD tw4 Petey Foster RN RN tr5 Paloma Russell cl3 Corrections: (The following items were deleted from the chart) 02:11 02:04 EENT: Dental caries noted in upper right cuspid (#6) lp1 lp1
[2019-04-10 03:07] VITALS: BP 148/89; TEMP 98.6; O2SAT 98
== END 2019-04-10 02:15 | disposition home or self-care (01) ==
LOC: ER 01:26
DX: K02.9 Dental caries, unspecified (principal)
CPT/HCPCS: 96372; 99283

== ENCOUNTER 2019-05-28 15:27 | Emergency (ER) | payer BC ==
--- NOTE | 2019-05-28 17:29 | ER ---
Nurse's Notes [facility] Name: Shyann Alicia Age: 48 yrs Sex: Female : 1970 Arrival Date: 05/28/2019 Time: 15:32 Bed 26 Private MD: Dario Oviedo R Diagnosis: Pain in left finger(s) Presentation: 05/28 15:45 Presenting complaint: Patient states: during the night i felt pain in my LEFT middle tw2 finger and during the day it has gotten worse, i cant even bend that finger, i noticed these spots on there and i popped it but nothing came out, it just hurts on so bad on that first bone in the bend of my finger. Transition of care: patient was not received from another setting of care. Onset of symptoms was May 28, 2019. Risk Assessment: Do you want to hurt yourself or someone else? Patient reports no desire to harm self or others. Initial Sepsis Screen: Does the patient meet any 2 criteria? No. Patient's initial sepsis screen is negative. Does the patient have a suspected source of infection? No. Patient's initial sepsis screen is negative. Care prior to arrival: None. 15:45 Method Of Arrival: Ambulatory tw2 15:45 Acuity: LONG 4 tw2 Triage Assessment: 15:46 General: Appears in no apparent distress. Behavior is calm, cooperative, appropriate tw2 for age. Pain: Complains of pain in dorsal aspect of distal phalanx of left middle finger, palmar aspect of distal phalanx of left middle finger and left middle fingernail. 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 tw2 Historical: - Allergies: 15:48 No Known Allergies; tw2 - Home Meds: 15:48 None [Active]; tw2 - PMHx: 15:48 Diverticulitis; GERD; Hernia; Ovarian cyst; Ulcers; tw2 - PSHx: 15:48 None; endometriosis; tw2 - Immunization history:: Adult Immunizations. - Coronavirus screen:: The patient has NOT traveled to [place], [place], or [place] in the past 14 days. - Social history:: Smoking status: . - Family history:: not pertinent. - Ebola Screening: : Patient denies travel to an Ebola-affected area in the 21 days before illness onset. - Hospitalizations: : No recent hospitalization is reported. Screenin:58 Abuse screen: Denies threats or abuse. Denies injuries from another. Nutritional ls4 screening: No deficits noted. Tuberculosis screening: No symptoms or risk factors identified. Fall Risk None identified. Assessment: 15:51 General: Appears in no apparent distress. Behavior is calm, cooperative. Neuro: No ls4 deficits noted. Cardiovascular: No deficits noted. Respiratory: No deficits noted. GI: No deficits noted. EENT: No deficits noted. Musculoskeletal: Circulation, motion, and sensation intact. Capillary refill < 3 seconds, Range of motion: limited in DIP of left middle finger and PIP of left middle finger. 17:09 Reassessment: Patient appears in no apparent distress at this time. Patient and/or ls4 family updated on plan of care and expected duration. Pain level reassessed. Patient is alert, oriented x 3, equal unlabored respirations, skin warm/dry/pink. Vital Signs: 15:46 BP 150 / 75; Pulse 88; Resp 17; Temp 97.9(TE); Pulse Ox 98% on R/A; Weight 97.07 kg; tw2 Height 5 ft. 6 in. (167.64 cm); Pain 10/10; 17:34 BP 150 / 79; Pulse 79; Resp 18; Pulse Ox 100% on R/A; mg2 15:46 Body Mass Index 34.54 (97.07 kg, 167.64 cm) tw2 ED Course: 15:32 Patient arrived in ED. rg4 15:33 Dario Oviedo MD is Private Physician. rg4 15:46 Triage completed. tw2 15:46 Arm band placed on. tw2 15:48 Travis Pandya MD is Attending Physician. rn 15:51 Shyann Rashid, BABATUNDE is Primary Nurse. ls4 15:58 Patient has correct armband on for positive identification. Bed in low position. Call ls4 light in reach. Side rails up X 1. Pulse ox on. NIBP on. 15:58 No provider procedures requiring assistance completed. ls4 17:34 Patient did not have IV access during this emergency room visit. mg2 Administered Medications: No medications were administered Outcome: 17:27 Discharge ordered by . rn 17:34 Discharged to home ambulatory. mg2 17:34 Condition: stable 17:34 Discharge instructions given to patient, Instructed on discharge instructions, follow up and referral plans. medication usage, Demonstrated understanding of instructions, follow-up care, medications, Prescriptions given X 1. 17:35 Patient left the ED. mg2 Signatures: Travis Pandya MD MD rn Wise, Tara, RN RN tw2 Ivana Plunkett rg4 Brayan Hermosillo RN RN mg2 Shyann Rashid RN RN ls4 Corrections: (The following items were deleted from the chart) 17:09 15:51 Musculoskeletal: Circulation, motion, and sensation intact. Capillary refill < 3 ls4 seconds, Range of motion: intact in all extremities, ls4
--- NOTE | 2019-05-28 17:29 | EDPHYS ---
Physician Documentation [facility] Name: Shyann Alicia Age: 48 yrs Sex: Female : 1970 Arrival Date: 05/28/2019 Time: 15:32 Bed 26 Private MD: Dario Oviedo R ED Physician Travis Pandya HPI: 05/28 16:06 This 48 yrs old Female presents to ER via Ambulatory with complaints of rn Finger Pain. 16:06 The patient or guardian reports pain. The complaints affect the DIP of left middle rn finger. Onset: The symptoms/episode began/occurred last night. Modifying factors: The symptoms are alleviated by nothing, the symptoms are aggravated by movement. Severity of symptoms: At their worst the symptoms were mild, in the emergency department the symptoms are unchanged. The patient has not experienced similar symptoms in the past. Reports felt a pain to DIP of left middle finger last night, no known trauma, no fever, not sure if something bit her. Has never happened before. [place] like 2 small bumps on back of DIP, she popped with needle, nothing came out. No warmth or redness. Hurts to flex DIP. no fingertip pain or swelling, no pain in rest of finger. Isolated to DIP.. 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 tw2 Historical: - Allergies: 15:48 No Known Allergies; tw2 - Home Meds: 15:48 None [Active]; tw2 - PMHx: 15:48 Diverticulitis; GERD; Hernia; Ovarian cyst; Ulcers; tw2 - PSHx: 15:48 None; endometriosis; tw2 - Immunization history:: Adult Immunizations. - Coronavirus screen:: The patient has NOT traveled to [place], [place], or [place] in the past 14 days. - Social history:: Smoking status: . - Family history:: not pertinent. - Ebola Screening: : Patient denies travel to an Ebola-affected area in the 21 days before illness onset. - Hospitalizations: : No recent hospitalization is reported. ROS: 16:06 Constitutional: Negative for fever, chills, and weight loss, MS/Extremity: Negative for rn injury and deformity, Skin: Negative for injury, rash, and discoloration, Neuro: Negative for headache, weakness, numbness, tingling, and seizure. Exam: 16:06 Constitutional: This is a well developed, well nourished patient who is awake, alert, rn and in no acute distress. MS/ Extremity: Pulses equal, no cyanosis. No tenderness along flexor surface of finger, no fusiform swelling, no warmth or erythema. + painful active and passive ROM of left middle DIP. No skin lesions. Vital Signs: 15:46 BP 150 / 75; Pulse 88; Resp 17; Temp 97.9(TE); Pulse Ox 98% on R/A; Weight 97.07 kg; tw2 Height 5 ft. 6 in. (167.64 cm); Pain 10/10; 17:34 BP 150 / 79; Pulse 79; Resp 18; Pulse Ox 100% on R/A; mg2 15:46 Body Mass Index 34.54 (97.07 kg, 167.64 cm) tw2 MDM: 15:48 Patient medically screened. rn 17:25 Differential diagnosis: injury, sprain, insect bite, inflammatory reaction, early rn infection. Data reviewed: vital signs, nurses notes, radiologic studies, plain films, and as a result, I will discharge patient. Counseling: I had a detailed discussion with the patient and/or guardian regarding: the historical points, exam findings, and any diagnostic results supporting the discharge/admit diagnosis, radiology results, the need for outpatient follow up, to return to the emergency department if symptoms worsen or persist or if there are any questions or concerns that arise at home. Special discussion: I discussed with the patient/guardian in detail that at this point there is no indication for admission to the hospital. It is understood, however, that if the symptoms persist or worsen the patient needs to return immediately for re-evaluation. ED course: No injury or abnormality on xray, will dc home with abx to cover for early infection given strange location and pain with movement. Possible bite.. 05/28 15:55 Order name: XRAY Hand LEFT 3 View rn Administered Medications: No medications were administered Disposition: 05/28/19 17:27 Discharged to Home. Impression: Pain in left finger(s). - Condition is Stable. - Discharge Instructions: Musculoskeletal Pain. - Prescriptions for Augmentin 875- 125 mg Oral Tablet - take 1 tablet by ORAL route every 12 hours for 10 days; 20 tablet. - Medication Reconciliation Form, Thank You Letter, Antibiotic Education, Prescription Opioid Use form. - Follow up: Private Physician; When: As needed; Reason: Recheck today's complaints, Re-evaluation by your physician. - Problem is new. - Symptoms are unchanged. Signatures: Dispatcher [employer] EDMS Travis Pandya MD MD rn Ingrid Shafer RN RN tw2 Brayan Hermosillo RN RN mg2 Corrections: (The following items were deleted from the chart) 17:35 17:27 05/28/2019 17:27 Discharged to Home. Impression: Pain in left finger(s). mg2 Condition is Stable. Forms are Medication Reconciliation Form, Thank You Letter, Antibiotic Education, Prescription Opioid Use. Follow up: Private Physician; When: As needed; Reason: Recheck today's complaints, Re-evaluation by your physician. Problem is new. Symptoms are unchanged. rn
--- NOTE | 2019-05-28 17:37 | RAD REPORT ---
EXAM DESCRIPTION: RAD - Hand Left 3 View - 05/28/2019 4:25 pm CLINICAL HISTORY: Left middle finger DIP joint pain COMPARISON: None. FINDINGS: No fracture, dislocation or periosteal reaction noted. No joint space narrowing, spurring or erosive change at the joints of the hand, specifically the third DIP joint. Soft tissues of the th ird digit are not clearly different from the second and fourth digits. There is no periarticular calc ification. No air, foreign body or soft tissue mass evident. IMPRESSION: Negative left hand for acute or significant finding.
[2019-05-28 18:04] VITALS: TEMP 97.9
[2019-05-28 18:11] VITALS: BP 150/79; O2SAT 100
== END 2019-05-28 17:35 | disposition home or self-care (01) ==
LOC: ER 15:27
DX: M25.542 Pain in joints of left hand (principal)
CPT/HCPCS: 99283

== ENCOUNTER 2019-10-01 13:59 | Emergency (ER) | payer BC ==
[2019-10-01 15:30] LABS: Absolute Lymphocytes (CBC) 1.7 K/uL (0.7-4.9); Basophils % 0.6 % (0-1.3); Hematocrit 39.6 % (36.0-45.0); Lymphocytes % 19.1 % (15.3-44.8); MPV 9.9 fL (7.6-11.3); RBC Red Blood Cell Count 4.51 M/uL (3.86-4.86)
[2019-10-01] MEDS ORDERED: MORPHINE 4 MG/ML SYR ONE (15:42)
[2019-10-01] MEDS ORDERED: NA CHLORIDE 0.9% 1,000 ML ONE (15:42)
[2019-10-01] MEDS ORDERED: ONDANSETRON 4 MG/2 ML VIAL ONE (15:42)
[2019-10-01 15:46] LABS: Potassium 3.9 mmol/L (3.5-5.1)
--- NOTE | 2019-10-01 15:50 | RAD REPORT ---
EXAM DESCRIPTION: CTAbdomen Pelvis W Contrast - 10/01/2019 3:37 pm CLINICAL HISTORY: Abdominal pain. ABD PAIN COMPARISON: Abdomen Pelvis W Contrast dated 11/08/2018; Abdomen Pelvis W Contrast dated 08/23/2018; Abdomen Pelvis W Contrast dated 06/04/2018; CT ABD PELVIS W CONTRAST dated 06/26/2012 TECHNIQUE: Biphasic CT imaging of the abdomen and pelvis was performed with 100 ml non-ionic IV cont rast. All CT scans are performed using dose optimization technique as appropriate and may include automated exposure control or mA/KV adjustment according to patient size. FINDINGS: The lung bases are clear. The liver, spleen, pancreas, adrenal glands and kidneys are within normal limits. No bowel obstruction, free air, free fluid or abscess. Moderate inflammatory changes are present invo lving the distal descending colon with wall thickening up to 15 mm noted. This likely represents foca l diverticulitis. Given the focal nature of the findings, follow-up colonoscopy would be recommended to exclude underlying malignancy. The appendix is normal. No evidence of significant lymphadenopathy . No suspicious bony findings. IMPRESSION: Focal moderate acute diverticulitis is suspected involving the distal descending colon. No abscess. Followup colonoscopy would be recommended if not recently performed to exclude the possibility of und erlying malignancy.
--- NOTE | 2019-10-01 16:14 | ER ---
Nurse's Notes [facility] Name: Shyann Alicia Age: 49 yrs Sex: Female : 1970 Arrival Date: 10/01/2019 Time: 14:03 Bed 4 Private MD: Dario Oviedo R Diagnosis: Diverticulitis of intestine, part unspecified, without perforation or abscess without bleeding Presentation: 09/30 14:07 Chief complaint: Patient states: Left sided abd pain since last night. N fever. Denies hb N/V/D. Coronavirus screen: Proceed with normal triage. Patient denies a cough. Patient denies shortness of breath or difficulty breathing. Patient denies measured and/or subjective temperature greater than 100.4F prior to today's visit. Patient denies travel on a cruise ship or to a country the [facility] currently lists as an affected area. Patient denies contact with known and/or suspected case of COVID-19. Ebola Screen: Patient denies travel to an Ebola-affected area in the 21 days before illness onset. Initial Sepsis Screen: Does the patient meet any 2 criteria? No. Patient's initial sepsis screen is negative. Does the patient have a suspected source of infection? Yes: Acute abdominal pain. Risk Assessment: Do you want to hurt yourself or someone else? Patient reports no desire to harm self or others. 14:07 Method Of Arrival: Ambulatory hb 14:07 Acuity: LONG 3 hb Historical: - Allergies: 14:09 No Known Drug Allergies; hb - PMHx: 14:09 Diverticulitis; GERD; Hernia; Ovarian cyst; Ulcers; hb - PSHx: 14:09 None; endometriosis; hb - Immunization history:: Flu vaccine is not up to date. - Social history:: Smoking status: Patient denies any tobacco usage or history of. Patient/guardian denies using alcohol, street drugs, tobacco products. Screenin:45 Abuse screen: Denies threats or abuse. Nutritional screening: No deficits noted. em Tuberculosis screening: No symptoms or risk factors identified. Fall Risk None identified. Assessment: 15:45 General: Appears in no apparent distress. uncomfortable, Behavior is calm, cooperative, em appropriate for age, Denies fever. Pain: Complains of pain in left lower quadrant. Neuro: Level of Consciousness is awake, alert, obeys commands, Oriented to person, place, time, situation, Appropriate for age. Cardiovascular: Capillary refill < 3 seconds Patient's skin is warm and dry. Respiratory: Airway is patent Respiratory effort is even, unlabored, Respiratory pattern is regular, symmetrical. GI: Abdomen is round non-distended, Bowel sounds present X 4 quads. Abd is soft X 4 quads Abdomen is tender to palpation in left lower quadrant Patient currently denies nausea, vomiting. : Denies burning with urination. Derm: Skin is intact, is healthy with good turgor, Skin is pink, warm \T\ dry. Musculoskeletal: Capillary refill < 3 seconds, Range of motion: intact in all extremities. 16:56 Reassessment: Patient appears in no apparent distress at this time. Patient and/or em family updated on plan of care and expected duration. Pain level reassessed. Patient is alert, oriented x 3, equal unlabored respirations, skin warm/dry/pink. Vital Signs: 14:07 BP 155 / 79; Pulse 71; Resp 18; Temp 97.6; Pulse Ox 96% ; Pain 10/10; hb 16:00 BP 129 / 62; Pulse 60; Resp 16; Pulse Ox 97% on R/A; em ED Course: 14:03 Patient arrived in ED. am2 14:03 Dario Oviedo MD is Private Physician. am2 14:09 Triage completed. hb 14:09 Arm band placed on Patient notified of wait time. hb 14:54 [facility]C [facility]. kb 14:54 Ramses oCmbs MD is Attending Physician. kb 15:15 Dario Aldana, BABATUNDE is Primary Nurse. em 15:28 Patient has correct armband on for positive identification. Placed in gown. Bed in low mh5 position. Call light in reach. Warm blanket given. Pulse ox on. NIBP on. 15:28 Initial lab(s) drawn, by me, sent to lab. Inserted saline lock: 22 gauge in right mh5 antecubital area, using aseptic technique. Blood collected. 15:39 CT Abd/Pelvis - IV Contrast Only In Process Unspecified. EDMS 16:13 Dario Oviedo MD is Referral Physician. kb 16:56 No provider procedures requiring assistance completed. IV discontinued, intact, em bleeding controlled, No redness/swelling at site. Pressure dressing applied. Administered Medications: 15:49 Drug: NS 0.9% 1000 ml Route: IV; Rate: 1000 ml; Site: right antecubital; em 16:52 Follow up: IV Status: Order to discontinue infusion; IV Intake: 100ml em 15:50 Drug: Zofran (Ondansetron) 4 mg Route: IVP; Site: right antecubital; em 16:52 Follow up: Response: No adverse reaction em 15:52 Drug: morphine 4 mg Route: IVP; Site: right antecubital; em 16:52 Follow up: Response: No adverse reaction; Marked relief of symptoms; Pain is decreased; em RASS: Alert and Calm (0) 16:45 Drug: Flagyl 500 mg Route: PO; em 16:58 Follow up: Response: Medication administered at discharge. em 16:45 Drug: Cipro 500 mg Route: PO; em 16:58 Follow up: Response: Medication administered at discharge. em Intake: 16:52 IV: 100ml; Total: 100ml. em Outcome: 16:14 Discharge ordered by MD. kb 16:56 Discharged to home ambulatory. em 16:56 Condition: good 16:56 Discharge instructions given to patient, Instructed on discharge instructions, follow up and referral plans. medication usage, Demonstrated understanding of instructions, follow-up care, medications, Prescriptions given X 3. 16:57 Patient left the ED. em Signatures: Dispatcher [employer] Odette Gruber, Dario Hair RN RN em Baxter, Heather, RN RN hb Martinez, Maria [facility] Inessa Pham [facility]
--- NOTE | 2019-10-01 16:15 | EDPHYS ---
Physician Documentation [facility] Name: Shyann Alicia Age: 49 yrs Sex: Female : 1970 Arrival Date: 10/01/2019 Time: 14:03 Bed 4 Private MD: Dario Oviedo R ED Physician Ramses Combs HPI: 09/30 15:43 This 49 yrs old Female presents to ER via Ambulatory with complaints of kb Abdominal Pain. 15:43 The patient presents with abdominal pain in the left lower quadrant. Onset: The kb symptoms/episode began/occurred today. The symptoms do not radiate. Associated signs and symptoms: none. The symptoms are described as constant. Modifying factors: The symptoms are alleviated by nothing, the symptoms are aggravated by pressure. Severity of pain: At its worst the pain was moderate in the emergency department the pain is unchanged. The patient has not experienced similar symptoms in the past. The patient has not recently seen a physician. Pt reports she had diverticulitis a few years ago and now has pain that is the same as then. . Historical: - Allergies: 14:09 No Known Drug Allergies; hb - PMHx: 14:09 Diverticulitis; GERD; Hernia; Ovarian cyst; Ulcers; hb - PSHx: 14:09 None; endometriosis; hb - Immunization history:: Flu vaccine is not up to date. - Social history:: Smoking status: Patient denies any tobacco usage or history of. Patient/guardian denies using alcohol, street drugs, tobacco products. ROS: 15:43 Constitutional: Negative for fever, chills, and weight loss, Cardiovascular: Negative kb for chest pain, palpitations, and edema, Respiratory: Negative for shortness of breath, cough, wheezing, and pleuritic chest pain, Back: Negative for injury and pain, : Negative for injury, bleeding, discharge, and swelling, MS/Extremity: Negative for injury and deformity, Skin: Negative for injury, rash, and discoloration, Neuro: Negative for headache, weakness, numbness, tingling, and seizure. 15:43 Abdomen/GI: Positive for abdominal pain, Negative for nausea, vomiting, and diarrhea, constipation, abdominal cramps, abdominal distension, anorexia. Exam: 15:42 Constitutional: This is a well developed, well nourished patient who is awake, alert, kb and in no acute distress. Head/Face: Normocephalic, atraumatic. Chest/axilla: Normal chest wall appearance and motion. Nontender with no deformity. No lesions are appreciated. Cardiovascular: Regular rate and rhythm with a normal S1 and S2. No gallops, murmurs, or rubs. Normal PMI, no JVD. No pulse deficits. Respiratory: Lungs have equal breath sounds bilaterally, clear to auscultation and percussion. No rales, rhonchi or wheezes noted. No increased work of breathing, no retractions or nasal flaring. Back: No spinal tenderness. No costovertebral tenderness. Full range of motion. Skin: Warm, dry with normal turgor. Normal color with no rashes, no lesions, and no evidence of cellulitis. MS/ Extremity: Pulses equal, no cyanosis. Neurovascular intact. Full, normal range of motion. Neuro: Awake and alert, GCS 15, oriented to person, place, time, and situation. Cranial nerves II-XII grossly intact. Motor strength 5/5 in all extremities. Sensory grossly intact. Cerebellar exam normal. Normal gait. 15:42 Abdomen/GI: Inspection: abdomen appears normal, Bowel sounds: normal, in all quadrants, Palpation: soft, in all quadrants, nontender, in the right upper quadrant, left upper quadrant and right lower quadrant, moderate abdominal tenderness, in the left lower quadrant. Vital Signs: 14:07 BP 155 / 79; Pulse 71; Resp 18; Temp 97.6; Pulse Ox 96% ; Pain 10/10; hb 16:00 BP 129 / 62; Pulse 60; Resp 16; Pulse Ox 97% on R/A; em MDM: 14:54 Patient medically screened. kb 15:42 Data reviewed: vital signs, nurses notes. Data interpreted: Pulse oximetry: on room air kb is 96 %. Interpretation: normal. 16:13 Counseling: I had a detailed discussion with the patient and/or guardian regarding: the kb historical points, exam findings, and any diagnostic results supporting the discharge/admit diagnosis, lab results, radiology results, the need for outpatient follow up, a hamper maker machine, to return to the emergency department if symptoms worsen or persist or if there are any questions or concerns that arise at home. 16:14 ED course: Pt would like to try outpatient antibiotics first. Pain is under control and kb pt has not had any n/v.. 09/30 14:59 Order name: Basic Metabolic Panel; Complete Time: 15:50 kb 09/30 14:59 Order name: CBC with Diff; Complete Time: 15:50 kb 09/30 14:59 Order name: CT Abd/Pelvis - IV Contrast Only; Complete Time: 16:01 kb 09/30 14:59 Order name: IV Saline Lock; Complete Time: 15:54 kb 09/30 14:59 Order name: Labs collected and sent; Complete Time: 15:54 kb Administered Medications: 15:49 Drug: NS 0.9% 1000 ml Route: IV; Rate: 1000 ml; Site: right antecubital; em 16:52 Follow up: IV Status: Order to discontinue infusion; IV Intake: 100ml em 15:50 Drug: Zofran (Ondansetron) 4 mg Route: IVP; Site: right antecubital; em 16:52 Follow up: Response: No adverse reaction em 15:52 Drug: morphine 4 mg Route: IVP; Site: right antecubital; em 16:52 Follow up: Response: No adverse reaction; Marked relief of symptoms; Pain is decreased; em RASS: Alert and Calm (0) 16:45 Drug: Flagyl 500 mg Route: PO; em 16:58 Follow up: Response: Medication administered at discharge. em 16:45 Drug: Cipro 500 mg Route: PO; em 16:58 Follow up: Response: Medication administered at discharge. em Disposition: 18:49 Co-signature as Attending Physician, Ramses Combs MD I agree with the assessment and kdr plan of care. Disposition: 10/01/19 16:14 Discharged to Home. Impression: Diverticulitis of intestine, part unspecified, without perforation or abscess without bleeding. - Condition is Stable. - Discharge Instructions: Diverticulitis, [id number]. - Prescriptions for Flagyl 500 mg Oral Tablet - take 1 tablet by ORAL route every 8 hours for 10 days; 30 tablet. Zofran 4 mg Oral Tablet - take 1 tablet by ORAL route every 12 hours As needed; 20 tablet. Cipro 500 mg Oral Tablet - take 1 tablet by ORAL route every 12 hours for 10 days; 20 tablet. - Medication Reconciliation Form, Thank You Letter, Antibiotic Education, Prescription Opioid Use, Work release form form. - Follow up: Emergency Department; When: As needed; Reason: Worsening of condition. Follow up: Daroi Oviedo MD; When: 2 - 3 days; Reason: Recheck today's complaints, Continuance of care, Re-evaluation by your physician. Signatures: Dispatcher [employer] EDOdette Weathers, WEB CONTENT DIRECTOR-C WEB CONTENT DIRECTOR-Ckb Ramses Combs MD MD [facility] Dario Aldana RN RN Myah Salazar RN RN Corrections: (The following items were deleted from the chart) 16:57 16:14 10/01/2019 16:14 Discharged to Home. Impression: Diverticulitis of intestine, em part unspecified, without perforation or abscess without bleeding. Condition is Stable. Forms are Medication Reconciliation Form, Thank You Letter, Antibiotic Education, Prescription Opioid Use. Follow up: Emergency Department; When: As needed; Reason: Worsening of condition. Follow up: Dario Oviedo; When: 2 - 3 days; Reason: Recheck today's complaints, Continuance of care, Re-evaluation by your physician. kb
[2019-10-01] MEDS ORDERED: metroNIDAZOLE 500 MG TABLET ONE (16:48)
[2019-10-01] MEDS ORDERED: CIPROFLOXACIN HCL 500 MG TAB ONE (16:48)
[2019-10-01 17:07] VITALS: TEMP 97.6
[2019-10-01 17:08] VITALS: BP 129/62; O2SAT 97
== END 2019-10-01 16:57 | disposition home or self-care (01) ==
LOC: ER 13:59
DX: K57.92 Diverticulitis of intestine, part unspecified, without perforation or abscess without bleeding (principal)
CPT/HCPCS: 96361; 85025; 80048; 36415; 82565; 74177; 96375; 96374; 99284; Q9967; J7030; J2405

== ENCOUNTER 2019-11-15 21:19 | Emergency (ER) | payer BC ==
--- NOTE | 2019-11-15 23:12 | ER ---
Nurse's Notes [facility] Name: Shyann Alicia Age: 49 yrs Sex: Female : 1970 Arrival Date: 11/15/2019 Time: 21:25 Bed 2 Private MD: Dario Oviedo R Diagnosis: Otalgia, left ear Presentation: 11/14 21:29 Chief complaint: Patient states: Body aches all over mid morning today. Cheeks feel ca1 hot, L ear pain, a little runny nose. Cough off and on cx 1 week. Denies fever, SOB. Coronavirus screen: Patient reports a cough. Patient denies shortness of breath or difficulty breathing. Patient denies measured and/or subjective temperature greater than 100.4F prior to today's visit. Patient denies travel on a cruise ship or to a country the [facility] currently lists as an affected area. Patient reports contact with known and/or suspected case of COVID-19. Patient was placed back in the lobby due to no available rooms at this time. Patient was instructed to always wear their mask and to isolate themselves as much as possible from others in the lobby. Works at [employer]. Ebola Screen: Patient negative for fever greater than or equal to 101.5 degrees Fahrenheit, and additional compatible Ebola Virus Disease symptoms Patient denies exposure to infectious person. Patient denies travel to an Ebola-affected area in the 21 days before illness onset. No symptoms or risks identified at this time. Initial Sepsis Screen: Does the patient meet any 2 criteria? No. Patient's initial sepsis screen is negative. Does the patient have a suspected source of infection? No. Patient's initial sepsis screen is negative. Risk Assessment: Do you want to hurt yourself or someone else? Patient reports no desire to harm self or others. Onset of symptoms was November 15, 2019. 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 - Social history:: Smoking status: Patient denies any tobacco usage or history of. Screenin:43 Abuse screen: Denies threats or abuse. Denies injuries from another. Nutritional mg2 screening: No deficits noted. Tuberculosis screening: No symptoms or risk factors identified. Fall Risk None identified. Assessment: 22:42 General: Appears in no apparent distress. comfortable, Behavior is calm, cooperative. mg2 Pain: Complains of pain in whole body Pain currently is 2 out of 10 on a pain scale. Quality of pain is described as aching, Pain began gradually, Is intermittent. Neuro: Level of Consciousness is awake, alert, obeys commands, Oriented to person, place, time, situation. Cardiovascular:. Respiratory: Airway is patent Respiratory effort is even, unlabored, Respiratory pattern is regular, symmetrical. GI: No signs and/or symptoms were reported involving the gastrointestinal system. : No signs and/or symptoms were reported regarding the genitourinary system. EENT: Reports pain left ear pain. Derm: Skin is intact, is healthy with good turgor, Skin is pink, warm \T\ dry. normal. Derm: Reports burning, in the face. Musculoskeletal: Circulation, motion, and sensation intact. Capillary refill < 3 seconds. Vital Signs: 21:29 BP 163 / 92; Pulse 76; Resp 15 S; Temp 97.3(TE); Pulse Ox 100% on R/A; Weight 97.98 kg ca1 (R); Height 5 ft. 6 in. (167.64 cm) (R); 23:20 BP 145 / 80; Pulse 70; Resp 18; Temp 97.5; Pulse Ox 100% on R/A; mg2 21:29 Body Mass Index 34.86 (97.98 kg, 167.64 cm) ca1 ED Course: 21:25 Patient arrived in ED. es 21:25 Dario Oviedo MD is Private Physician. es 21:33 Triage completed. ca1 21:34 Arm band placed on right wrist. ca1 21:58 Monroe Freeman PA is PHCP. jmm 21:58 Berto Flower MD is Attending Physician. jmm 22:41 Brayan Hermosillo, BABATUNDE is Primary Nurse. mg2 22:43 Patient has correct armband on for positive identification. Door closed. Warm blanket mg2 given. 22:43 No provider procedures requiring assistance completed. Patient did not have IV access mg2 during this emergency room visit. 23:11 Dario Oviedo MD is Referral Physician. gato Administered Medications: No medications were administered Outcome: 23:11 Discharge ordered by . gato 23:20 Discharged to home ambulatory. mg2 23:20 Condition: stable 23:20 Discharge instructions given to patient, Instructed on discharge instructions, follow up and referral plans. Demonstrated understanding of instructions, follow-up care, medications, Prescriptions given X 1. 23:20 Patient left the ED. mg2 Signatures: Monroe Freeman PA PA jmm Salyer, Edna es Gardose, Michele RN RN mg2 Karina Moran RN RN ca1
--- NOTE | 2019-11-15 23:12 | EDPHYS ---
Physician Documentation [facility] Name: Shyann Alicia Age: 49 yrs Sex: Female : 1970 Arrival Date: 11/15/2019 Time: 21:25 Bed 2 Private MD: Dario Oviedo R ED Physician Berto Flower HPI: 11/14 22:50 This 49 yrs old Female presents to ER via Ambulatory with complaints of Body jmm ache, check hot, dont feel good. 22:50 The patient presents with pain. Onset: The symptoms/episode began/occurred gradually, 1 jmm week(s) ago. Modifying factors: The symptoms are alleviated by nothing, the symptoms are aggravated by nothing. This is a 49 year old female that presents to the ED with complaints of bilateral ear pain which radiates down her cheeks. Denies fever. Denies cough. 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 - Social history:: Smoking status: Patient denies any tobacco usage or history of. ROS: 22:50 Constitutional: Negative for fever, chills, and weight loss, Cardiovascular: Negative jmm for chest pain, palpitations, and edema, Respiratory: Negative for shortness of breath, cough, wheezing, and pleuritic chest pain. 22:50 ENT: Positive for ear pain. 22:50 All other systems are negative. Exam: 22:50 Constitutional: This is a well developed, well nourished patient who is awake, alert, jmm and in no acute distress. Head/Face: atraumatic. Eyes: EOMI, no conjunctival erythema appreciated 22:50 Neck: Trachea midline, Supple Chest/axilla: Normal chest wall appearance and motion. Cardiovascular: Regular rate and rhythm. No edema appreciated Respiratory: Normal respirations, no respiratory distress appreciated Abdomen/GI: Non distended, soft Back: Normal ROM Skin: General appearance color normal MS/ Extremity: Moves all extremities, no obvious deformities appreciated, no edema noted to the lower extremities Neuro: Awake and alert, normal gait Psych: Behavior is normal, Mood is normal, Patient is cooperative and pleasant 22:50 ENT: TM's: bulging, on the right, on the left, bilaterally, erythema, is not appreciated. Vital Signs: 21:29 BP 163 / 92; Pulse 76; Resp 15 S; Temp 97.3(TE); Pulse Ox 100% on R/A; Weight 97.98 kg ca1 (R); Height 5 ft. 6 in. (167.64 cm) (R); 23:20 BP 145 / 80; Pulse 70; Resp 18; Temp 97.5; Pulse Ox 100% on R/A; mg2 21:29 Body Mass Index 34.86 (97.98 kg, 167.64 cm) ca1 MDM: 22:50 Patient medically screened. [facility] 23:10 Data reviewed: vital signs, nurses notes. Counseling: I had a detailed discussion with gato the patient and/or guardian regarding: the historical points, exam findings, and any diagnostic results supporting the discharge/admit diagnosis, the need for outpatient follow up, to return to the emergency department if symptoms worsen or persist or if there are any questions or concerns that arise at home. Administered Medications: No medications were administered Disposition: 11/15 06:06 Co-signature as Attending Physician, Berto Flower MD I agree with the assessment and tw4 plan of care. Disposition: 11/15/19 23:11 Discharged to Home. Impression: Otalgia, left ear. - Condition is Stable. - Discharge Instructions: Earache, Adult. - Prescriptions for Medrol (Brock) 4 mg Oral Tablets, Dose Pack - take 1 tablet by ORAL route as directed - follow package instructions; 1 packet. - Medication Reconciliation Form, Thank You Letter, Antibiotic Education, Prescription Opioid Use, Work release form form. - Follow up: Dario Oviedo MD; When: 2 - 3 days; Reason: Recheck today's complaints, Continuance of care, Re-evaluation by your physician. Signatures: Monroe Freeman PA PA jmm Wadley, Terrence, MD MD tw4 Brayan Hermosillo RN RN mg2 Karina Moran RN RN ca1 Corrections: (The following items were deleted from the chart) 11/14 23:20 23:11 11/15/2019 23:11 Discharged to Home. Impression: Otalgia, left ear. Condition is mg2 Stable. Forms are Medication Reconciliation Form, Thank You Letter, Antibiotic Education, Prescription Opioid Use. Follow up: Dario Oviedo; When: 2 - 3 days; Reason: Recheck today's complaints, Continuance of care, Re-evaluation by your physician. gato
[2019-11-15] MEDS ORDERED: HYDROCODONE/APAP 10/325 TAB ONE (23:26)
[2019-11-15 23:40] VITALS: O2SAT 100
[2019-11-15 23:52] VITALS: BP 145/80; TEMP 97.5
== END 2019-11-15 23:20 | disposition home or self-care (01) ==
LOC: ER 21:19
DX: H92.02 Otalgia, left ear (principal)
CPT/HCPCS: 99282

== ENCOUNTER 2019-11-17 16:38 | Emergency (ER) | payer BC ==
[2019-11-17] MEDS ORDERED: AMOX/K CLAV 875 MG TAB ONE (17:13)
[2019-11-17] MEDS ORDERED: dexAMETHasone 4 MG TAB ONE (17:13)
--- NOTE | 2019-11-17 17:45 | ER ---
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 Coronavirus screen: Patient reports a cough. Patient denies shortness of breath or difficulty breathing. Patient denies measured and/or subjective temperature greater than 100.4F prior to today's visit. Patient denies travel on a cruise ship or to a country the [facility] currently lists as an affected area. Patient denies contact with known and/or suspected case of COVID-19. Ebola Screen: Patient denies travel to an Ebola-affected area in the 21 days before illness onset. Initial Sepsis Screen: Does the patient meet any 2 criteria? No. Patient's initial sepsis screen is negative. Does the patient have a suspected source of infection? No. Patient's initial sepsis screen is negative. Risk Assessment: Do you want to hurt yourself or someone else? Patient reports no desire to harm self or others. Onset of symptoms was November 17, 2019. 16:45 Method Of Arrival: Ambulatory tw2 16:45 Acuity: LONG 4 tw2 Triage Assessment: 16:49 General: Appears in no apparent distress. obese, well groomed, Behavior is calm, tw2 cooperative, appropriate for age. Pain: Complains of pain in uvula, left aspect of posterior pharynx and right aspect of posterior pharynx. EENT: Reports nasal congestion. 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 - Social history:: Smoking status: Patient denies any tobacco usage or history of. Screenin:58 Abuse screen: Denies threats or abuse. Nutritional screening: No deficits noted. ll1 Tuberculosis screening: No symptoms or risk factors identified. Fall Risk None identified. Total Vásquez Fall Scale indicates No Risk (0-24 pts). Assessment: 17:30 General: Appears in no apparent distress. Behavior is calm, cooperative. Pain: ll1 Complains of pain in throat Quality of pain is described as aching. Respiratory: Reports cough that is Airway is patent Trachea midline Respiratory effort is even, unlabored, Respiratory pattern is regular, symmetrical, Breath sounds are clear bilaterally. EENT: Nares are clear Oral mucosa is moist. Throat is clear Reports nasal congestion sore throat. 18:04 Reassessment: Patient appears in no apparent distress at this time. No changes from ll1 previously documented assessment. Patient and/or family updated on plan of care and expected duration. Pain level reassessed. Patient is alert, oriented x 3, equal unlabored respirations, skin warm/dry/pink. Vital Signs: 16:45 BP 148 / 79; Pulse 68; Resp 16; Temp 97.6(TE); Pulse Ox 98% on R/A; Weight 97.98 kg; tw2 Height 5 ft. 6 in. (167.64 cm) (R); Pain 10/10; 16:45 Body Mass Index 34.86 (97.98 kg, 167.64 cm) tw2 16:45 sore throat tw2 ED Course: 16:40 Patient arrived in ED. ag5 16:40 Dario Oviedo MD is Private Physician. ag5 16:45 James Dash MD is Attending Physician. slime 16:48 Triage completed. tw2 16:48 Arm band placed on. tw2 16:50 Mable Russell RN is Primary Nurse. ll1 17:41 Dario Oviedo MD is Referral Physician. slime 17:41 Padmini Shoemaker MD is Referral Physician. slime 18:02 No provider procedures requiring assistance completed. Patient did not have IV access ll1 during this emergency room visit. 18:03 Patient has correct armband on for positive identification. Bed in low position. Call ll1 light in reach. Side rails up X 1. Administered Medications: 17:03 Drug: Augmentin 875 mg Route: PO; ll1 18:03 Follow up: Response: No adverse reaction; RASS: Alert and Calm (0) ll1 17:04 Drug: Decadron 6 mg Route: PO; ll1 18:03 Follow up: Response: No adverse reaction; RASS: Alert and Calm (0) ll1 Outcome: 17:44 Discharge ordered by . slime 18:02 Discharged to home ambulatory. ll1 18:02 Condition: stable 18:02 Discharge instructions given to patient, Instructed on discharge instructions, follow up and referral plans. medication usage, Demonstrated understanding of instructions, follow-up care, medications, Prescriptions given X 3. 18:04 Patient left the ED. 1 Signatures: James Dash MD MD cha Wise, Tara, RN RN tw2 Symone Bardales 5 Mable Russell, RN RN 1
--- NOTE | 2019-11-17 17:45 | EDPHYS ---
Physician Documentation [facility] [place], [place] Name: Shyann Alicia Age: 49 yrs Sex: Female : 1970 Arrival Date: 11/17/2019 Time: 16:40 Bed 16 Private MD: Dario Oviedo R ED Physician James Dash HPI: 11/16 16:58 This 49 yrs old Female presents to ER via Ambulatory with complaints of Sore slime Throat, Sinus Congestion. 16:58 The patient presents with sore throat. The patient describes throat pain as scratchy. slime Onset: The symptoms/episode began/occurred 3 day(s) ago. Severity of symptoms: At their worst the symptoms were mild, in the emergency department the symptoms are unchanged. Modifying factors: The symptoms are alleviated by nothing, the symptoms are aggravated by hot, cool enviroments. Associated signs and symptoms: Pertinent positives: earache, rhinorrhea. The patient has experienced similar episodes in the past, a few times. 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 - Social history:: Smoking status: Patient denies any tobacco usage or history of. ROS: 17:37 Constitutional: Negative for fever, chills, and weight loss, Eyes: Negative for injury, slime pain, redness, and discharge, Neck: Negative for injury, pain, and swelling, Cardiovascular: Negative for chest pain, palpitations, and edema, Respiratory: Negative for shortness of breath, cough, wheezing, and pleuritic chest pain, Abdomen/GI: Negative for abdominal pain, nausea, vomiting, diarrhea, and constipation, Back: Negative for injury and pain, : Negative for injury, bleeding, discharge, and swelling, MS/Extremity: Negative for injury and deformity, Skin: Negative for injury, rash, and discoloration, Neuro: Negative for headache, weakness, numbness, tingling, and seizure, Psych: Negative for depression, anxiety, suicide ideation, homicidal ideation, and hallucinations, Allergy/Immunology: Negative for hives, rash, and allergies, Endocrine: Negative for neck swelling, polydipsia, polyuria, polyphagia, and marked weight changes, Hematologic/Lymphatic: Negative for swollen nodes, abnormal bleeding, and unusual bruising. 17:37 ENT: Positive for rhinorrhea, sinus congestion, sinus pain. 17:37 Neck: Negative for injury or acute deformity, mass, pain with movement, pain at rest. Exam: 17:38 Constitutional: This is a well developed, well nourished patient who is awake, alert, slime and in no acute distress. Head/Face: Normocephalic, atraumatic. Eyes: Pupils equal round and reactive to light, extra-ocular motions intact. Lids and lashes normal. Conjunctiva and sclera are non-icteric and not injected. Cornea within normal limits. Periorbital areas with no swelling, redness, or edema. Neck: Trachea midline, no thyromegaly or masses palpated, and no cervical lymphadenopathy. Supple, full range of motion without nuchal rigidity, or vertebral point tenderness. No Meningismus. Chest/axilla: Normal chest wall appearance and motion. Nontender with no deformity. No lesions are appreciated. Cardiovascular: Regular rate and rhythm with a normal S1 and S2. No gallops, murmurs, or rubs. Normal PMI, no JVD. No pulse deficits. Respiratory: Lungs have equal breath sounds bilaterally, clear to auscultation and percussion. No rales, rhonchi or wheezes noted. No increased work of breathing, no retractions or nasal flaring. Abdomen/GI: Soft, non-tender, with normal bowel sounds. No distension or tympany. No guarding or rebound. No evidence of tenderness throughout. Back: No spinal tenderness. No costovertebral tenderness. Full range of motion. Skin: Warm, dry with normal turgor. Normal color with no rashes, no lesions, and no evidence of cellulitis. MS/ Extremity: Pulses equal, no cyanosis. Neurovascular intact. Full, normal range of motion. Neuro: Awake and alert, GCS 15, oriented to person, place, time, and situation. Cranial nerves II-XII grossly intact. Motor strength 5/5 in all extremities. Sensory grossly intact. Cerebellar exam normal. Normal gait. Psych: Awake, alert, with orientation to person, place and time. Behavior, mood, and affect are within normal limits. 17:38 ENT: Ear canal(s): are normal, no acute changes, TM's: bulging, on the left, dullness, erythema, that is mild, Nose: no acute changes, Mouth: Lips: normal, Oral mucosa: normal, Gums: normal with healthy appearance, Tongue: is normal, Posterior pharynx: Airway: normal, no evidence of obstruction, Tonsils: are normal in appearance, Uvula: normal, swelling, is not appreciated, erythema, that is mild. 17:38 Neck: ROM/movement: is normal, no acute changes, Meningeal signs: are not present, Kernig's sign is negative, Brudzinski's sign is negative. 17:38 Musculoskeletal/extremity: DVT Exam: No signs of deep vein thrombosis. no pain, no swelling, no tenderness, negative Homans' sign noted on exam, no appreciated bluish discoloration, no erythema, no increased warmth. Vital Signs: 16:45 BP 148 / 79; Pulse 68; Resp 16; Temp 97.6(TE); Pulse Ox 98% on R/A; Weight 97.98 kg; tw2 Height 5 ft. 6 in. (167.64 cm) (R); Pain 10/10; 16:45 Body Mass Index 34.86 (97.98 kg, 167.64 cm) tw2 16:45 sore throat tw2 MDM: 16:51 Patient medically screened. slime 17:40 Data reviewed: vital signs, nurses notes. Data interpreted: electronic device monitor: not slime applicable for this patient encounter. rate is 68 beats/min, rhythm is regular, Pulse oximetry:. Counseling: I had a detailed discussion with the patient and/or guardian regarding: the historical points, exam findings, and any diagnostic results supporting the discharge/admit diagnosis, the need for outpatient follow up, for definitive care, an ENT specialist. Administered Medications: 17:03 Drug: Augmentin 875 mg Route: PO; ll1 18:03 Follow up: Response: No adverse reaction; RASS: Alert and Calm (0) ll1 17:04 Drug: Decadron 6 mg Route: PO; ll1 18:03 Follow up: Response: No adverse reaction; RASS: Alert and Calm (0) ll1 Disposition: 11/17/19 17:44 Discharged to Home. Impression: Acute upper respiratory infection, unspecified, Acute sinusitis, Other allergic rhinitis. - Condition is Stable. - Discharge Instructions: Allergic Rhinitis, Upper Respiratory Infection, Adult, Cool Mist Vaporizer, Cough, Adult, [id number]. - Prescriptions for Augmentin 875- 125 mg Oral Tablet - take 1 tablet by ORAL route every 12 hours for 10 days; 20 tablet. Loren- D 12 Hour 60-120 mg Oral Tablet Sustained Release 12 hr - take 1 tablet by ORAL route every 12 hours As needed; 20 tablet. Medrol (Brock) 4 mg Oral Tablets, Dose Pack - take 1 tablet by ORAL route as directed - follow package instructions; 1 packet. - Work release form, Medication Reconciliation Form, Thank You Letter, Antibiotic Education, Prescription Opioid Use form. - Follow up: Dario Oviedo MD; When: 2 - 3 days; Reason: Recheck today's complaints, Continuance of care, Re-evaluation by your physician. Follow up: Padmini Shoemaker MD; When: 2 - 3 days; Reason: Recheck today's complaints, Continuance of care, Re-evaluation by your physician. - Problem is new. - Symptoms have improved. Signatures: James Dash MD MD cha Wise, Tara RN RN tw2 Mable Russell RN RN ll1 Corrections: (The following items were deleted from the chart) 18:04 17:44 11/17/2019 17:44 Discharged to Home. Impression: Acute upper respiratory ll1 infection, unspecified; Acute sinusitis; Other allergic rhinitis. Condition is Stable. Forms are Work release form, Medication Reconciliation Form, Thank You Letter, Antibiotic Education, Prescription Opioid Use. Follow up: Dario Oviedo; When: 2 - 3 days; Reason: Recheck today's complaints, Continuance of care, Re-evaluation by your physician. Follow up: Padmini Shoemaker; When: 2 - 3 days; Reason: Recheck today's complaints, Continuance of care, Re-evaluation by your physician. Problem is new. Symptoms have improved. slime
[2019-11-17 18:22] VITALS: BP 148/79; TEMP 97.6; O2SAT 98
== END 2019-11-17 18:04 | disposition home or self-care (01) ==
LOC: ER 16:38
DX: J06.9 Acute upper respiratory infection, unspecified (principal); J01.90 Acute sinusitis, unspecified; J30.89 Other allergic rhinitis
CPT/HCPCS: 99283; J8540

== ENCOUNTER 2019-11-23 13:49 | Emergency (ER) | payer BC ==
--- NOTE | 2019-11-23 16:42 | EDPHYS ---
Physician Documentation [facility] Name: Shyann Alicia Age: 49 yrs Sex: Female : 1970 Arrival Date: 11/23/2019 Time: 13:50 Bed 7 Private MD: ALICIA Physician James Dash HPI: 11/22 15:34 This 49 yrs old Female presents to ER via Wheelchair with complaints of jr8 Shortness Of Breath. 15:34 The patient has shortness of breath at rest. Onset: The symptoms/episode began/occurred jr8 gradually, 1 week(s) ago. Duration: The symptoms are continuous, and are steadily getting worse. The patient's shortness of breath is aggravated by exertion. Associated signs and symptoms: Pertinent positives: non-productive cough. Severity of symptoms: At their worst the symptoms were moderate in the emergency department the symptoms are unchanged. The patient has not experienced similar symptoms in the past. The patient has been recently seen by a physician:. Patient stated that she was diagnosed with URI last week and was put on steroids and Abx. Stated that she continues to feel short of breath. [facility] is [facility] . Historical: - Allergies: 14:04 No Known Allergies; ca1 - Home Meds: 14:04 None [Active]; ca1 - PMHx: 14:04 Diverticulitis; GERD; Hernia; Ovarian cyst; Ulcers; ca1 - PSHx: 14:04 None; endometriosis; ca1 - Immunization history:: Adult Immunizations up to date. - Social history:: Smoking status: Patient denies any tobacco usage or history of. ROS: 15:34 Eyes: Negative for injury, pain, redness, and discharge, ENT: Positive for sore throat. jr8 Negative for injury, runny nose, sinus congestion, difficulty swallowing, or ear pain Neck: Negative for injury, pain, and swelling, Cardiovascular: Negative for chest pain, palpitations, and edema, Abdomen/GI: Negative for abdominal pain, nausea, vomiting, diarrhea, and constipation, Back: Negative for injury and pain, MS/Extremity: Negative for injury and deformity, Skin: Negative for injury, rash, and discoloration, Neuro: Negative for headache, weakness, numbness, tingling, and seizure. 15:34 Constitutional: Positive for fatigue. 15:34 Respiratory: Positive for cough, shortness of breath. Exam: 15:34 Eyes: Pupils equal round and reactive to light, extra-ocular motions intact. Lids and jr8 lashes normal. Conjunctiva and sclera are non-icteric and not injected. Cornea within normal limits. Periorbital areas with no swelling, redness, or edema. ENT: Nares patent. No nasal discharge, no septal abnormalities noted. Tympanic membranes are normal and external auditory canals are clear. Oropharynx with no redness, swelling, or masses, exudates, or evidence of obstruction, uvula midline. Mucous membranes moist. Neck: Trachea midline, no thyromegaly or masses palpated, and no cervical lymphadenopathy. Supple, full range of motion without nuchal rigidity, or vertebral point tenderness. No Meningismus. Cardiovascular: Regular rate and rhythm with a normal S1 and S2. No gallops, murmurs, or rubs. Normal PMI, no JVD. No pulse deficits. Respiratory: Lungs have equal breath sounds bilaterally, clear to auscultation and percussion. No rales, rhonchi or wheezes noted. No increased work of breathing, no retractions or nasal flaring. Abdomen/GI: Soft, non-tender, with normal bowel sounds. No distension or tympany. No guarding or rebound. No evidence of tenderness throughout. Back: No spinal tenderness. No costovertebral tenderness. Full range of motion. Skin: Warm, dry with normal turgor. Normal color with no rashes, no lesions, and no evidence of cellulitis. MS/ Extremity: Pulses equal, no cyanosis. Neurovascular intact. Full, normal range of motion. Neuro: Awake and alert, GCS 15, oriented to person, place, time, and situation. Cranial nerves II-XII grossly intact. Motor strength 5/5 in all extremities. Sensory grossly intact. Cerebellar exam normal. Normal gait. Vital Signs: 13:59 BP 113 / 78; Pulse 78; Resp 20; Temp 98.4(O); Pulse Ox 100% on R/A; Weight 97.98 kg iw (R); Height 5 ft. 6 in. (167.64 cm) (R); 16:40 BP 99 / 72; Pulse 76; Resp 17; Pulse Ox 100% ; jl7 13:59 Body Mass Index 34.86 (97.98 kg, 167.64 cm) iw MDM: 15:03 Patient medically screened. jr8 16:40 Data reviewed: vital signs, nurses notes, lab test result(s), radiologic studies, plain jr8 films. Data interpreted: Pulse oximetry: on room air is 100 %. Interpretation: normal. Counseling: I had a detailed discussion with the patient and/or guardian regarding: the historical points, exam findings, and any diagnostic results supporting the discharge/admit diagnosis, lab results, radiology results, the need for outpatient follow up, a family practitioner, to return to the emergency department if symptoms worsen or persist or if there are any questions or concerns that arise at home. 16:42 The patient's pulmonary embolism risk score was calculated as follows: No Risks (0 Pts).8 11/22 14:19 Order name: COVID-19 11/22 14:19 Order name: Flu; Complete Time: 15:22 sv 11/22 14:19 Order name: Strep; Complete Time: 15:23 sv 11/22 15:21 Order name: XRAY CXR (1 view) [facility] 11/22 15:23 Order name: Throat Culture [facility] 11/22 14:19 Order name: Droplet/Contact Precautions; Complete Time: 14:35 sv 11/22 14:19 Order name: Labs collected and sent; Complete Time: 14:35 sv 11/22 14:19 Order name: O2 Per Protocol; Complete Time: 14:35 sv Administered Medications: No medications were administered Disposition: 17:41 Co-signature as Attending Physician, James Dash MD I agree with the assessment and slime plan of care. Disposition: 11/23/19 16:41 Discharged to Home. Impression: Shortness of breath, Encounter for screening for other viral diseases. - Condition is Stable. - Discharge Instructions: Shortness of Breath, COVID-19. - Prescriptions for Prednisone 20 mg Oral Tablet - take 1 tablet by ORAL route once daily for 7 days; 7 tablet. - Medication Reconciliation Form, Thank You Letter, Antibiotic Education, Prescription Opioid Use, Work release form form. - Follow up: Private Physician; When: 1 week; Reason: Recheck today's complaints, Continuance of care, Re-evaluation by your physician. - Problem is new. - Symptoms have improved. Signatures: Dispatcher [employer] Padmini Roa RN RN sv Anderson, Corey, MD MD cha Roszak, Josh, PA PA jr8 Priti Larsen RN RN jl7 Karina Moran RN RN ca1 Corrections: (The following items were deleted from the chart) 16:54 16:41 11/23/2019 16:41 Discharged to Home. Impression: Shortness of breath; Encounter jl7 for screening for other viral diseases. Condition is Stable. Forms are Medication Reconciliation Form, Thank You Letter, Antibiotic Education, Prescription Opioid Use. Follow up: Private Physician; When: 1 week; Reason: Recheck today's complaints, Continuance of care, Re-evaluation by your physician. Problem is new. Symptoms have improved. jr8
--- NOTE | 2019-11-23 16:42 | ER ---
Nurse's Notes [facility] Name: Shyann Alicia Age: 49 yrs Sex: Female : 1970 Arrival Date: 11/23/2019 Time: 13:50 Bed 7 Private MD: Diagnosis: Shortness of breath;Encounter for screening for other viral diseases Presentation: 11/22 13:59 Chief complaint: Patient states: SOB since yesterday. Denies cough, denies fever. Has ca1 URTI, was diagnosed here last week, on Amox and has just completed steroids. Reports sore throat, headache and "fatigue from being trying to catch breath". Coronavirus screen: Client denies travel out of the [place] in the last 14 days. fatigue, shortness of breath, sore throat, Client presents with at least one sign or symptom that may indicate coronavirus-19. Standard/surgical mask placed on the client. Provider contacted for isolation considerations. Ebola Screen: Patient negative for fever greater than or equal to 101.5 degrees Fahrenheit, and additional compatible Ebola Virus Disease symptoms Patient denies exposure to infectious person. Patient denies travel to an Ebola-affected area in the 21 days before illness onset. No symptoms or risks identified at this time. Initial Sepsis Screen: Does the patient meet any 2 criteria? No. Patient's initial sepsis screen is negative. Does the patient have a suspected source of infection? No. Patient's initial sepsis screen is negative. Risk Assessment: Do you want to hurt yourself or someone else? Patient reports no desire to harm self or others. Onset of symptoms was November 23, 2019. 13:59 Method Of Arrival: Wheelchair ca1 13:59 Acuity: LONG 3 ca1 Historical: - Allergies: 14:04 No Known Allergies; ca1 - Home Meds: 14:04 None [Active]; ca1 - PMHx: 14:04 Diverticulitis; GERD; Hernia; Ovarian cyst; Ulcers; ca1 - PSHx: 14:04 None; endometriosis; ca1 - Immunization history:: Adult Immunizations up to date. - Social history:: Smoking status: Patient denies any tobacco usage or history of. Screenin:00 Abuse screen: Denies threats or abuse. Denies injuries from another. Nutritional jl7 screening: No deficits noted. Tuberculosis screening: No symptoms or risk factors identified. Fall Risk None identified. Assessment: 14:35 Reassessment: COVID-19 sent to outside lab. sv 15:00 General: Appears in no apparent distress. uncomfortable. Pain: Denies pain. Neuro: jl7 Level of Consciousness is awake, alert, obeys commands, Oriented to person, place, time, situation. Cardiovascular: Rhythm is regular. Respiratory: Airway is patent Respiratory effort is even, unlabored, Respiratory pattern is regular, symmetrical, did not auscultate. Derm: Skin is pink, warm \\T\\ dry. 16:00 Reassessment: Patient appears in no apparent distress at this time. No changes from jl7 previously documented assessment. Patient and/or family updated on plan of care and expected duration. Pain level reassessed. Patient is alert, oriented x 3, equal unlabored respirations, skin warm/dry/pink. 16:40 Reassessment: ERP at bedside discussing results and POC. jl7 Vital Signs: 13:59 BP 113 / 78; Pulse 78; Resp 20; Temp 98.4(O); Pulse Ox 100% on R/A; Weight 97.98 kg iw (R); Height 5 ft. 6 in. (167.64 cm) (R); 16:40 BP 99 / 72; Pulse 76; Resp 17; Pulse Ox 100% ; jl7 13:59 Body Mass Index 34.86 (97.98 kg, 167.64 cm) iw ED Course: 13:50 Patient arrived in ED. as 14:04 Triage completed. ca1 14:04 Arm band placed on right wrist. ca1 14:30 Patient has correct armband on for positive identification. Placed in gown. Bed in low jl7 position. Call light in reach. Side rails up X 1. Pulse ox on. NIBP on. 14:35 Flu and/or RSV swab sent to lab. Strep swab sent to lab. sv 15:02 Dio Borges PA is PHCP. jr8 15:02 James Dash MD is Attending Physician. jr8 15:17 Priti Larsen RN is Primary Nurse. jl7 16:07 XRAY CXR (1 view) In Process Unspecified. EDMS 16:53 No provider procedures requiring assistance completed. Patient did not have IV access jl7 during this emergency room visit. Administered Medications: No medications were administered Outcome: 16:41 Discharge ordered by . april 16:53 Discharged to home ambulatory. jl7 16:53 Condition: stable 16:53 Discharge instructions given to patient, Instructed on discharge instructions, follow up and referral plans. medication usage, Demonstrated understanding of instructions, follow-up care, medications, Prescriptions given X 1. 16:54 Patient left the ED. jl7 Addendum: 11/25/2019 15:28 Addendum: COVID-19 Result: Negative result given to RN to notify pt. Notified pt of s s negative COVID 19 swab results. Pt advised that even with a negative test result they should remain in isolation until symptom free for 3 days without medication. Pt also advised to return to the ED for worsening symptoms. Signatures: Dispatcher [employer] EDPadmini Roa, Anay Burrell RN, Irene, RN RN iw Smirch, Shelby, RN RN ss Roszak, Josh, ALLY CANALES jrPriti Christian RN RN jl7 Karina Moran RN RN ca1 Corrections: (The following items were deleted from the chart) 11/22 14:05 13:59 Pulse 78bpm; Resp 20bpm; Pulse Ox 100% RA; Temp 98.4F Oral; 97.98 kg Reported; iw Height 5 ft. 6 in. Reported; BMI: 34.8; ca1
[2019-11-23 16:59] VITALS: TEMP 98.4; O2SAT 100
[2019-11-23 17:01] VITALS: BP 99/72
--- NOTE | 2019-11-23 17:31 | RAD REPORT ---
EXAM DESCRIPTION: Emil Single View11/23/2019 4:06 pm CLINICAL HISTORY: sob COMPARISON: 2019 FINDINGS: The lungs appear clear of acute infiltrate. The heart is normal size IMPRESSION: No acute abnormalities displayed
== END 2019-11-23 16:54 | disposition home or self-care (01) ==
LOC: ER 13:49
DX: R06.02 Shortness of breath (principal); Z20.828 Contact with and (suspected) exposure to other viral communicable diseases
CPT/HCPCS: 71045; 87070; 87081; 87804; 99284

== ENCOUNTER 2025-02-02 07:04 | Emergency (ER) | payer BC ==
--- OUTSIDE RECORDS SUMMARY | 2025-02-02 07:11 | XMS REPORT | Continuity of Care Document ---
Author Name Unknown Address [address] [facility] [address] [place] [address] [facility] Address [address] [facility] 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 Name Role Phone BENJAMIN BARNEY Primary Care Physician Unavaila ABISAI Mejia Attending Clinician UnavailBAISAI Díaz Attending Clinician UnavailAnge Elmore Attending Clinician Unavailab Ximena Garcia LVN Attending Clinician UnavailELSY Epperson Attending Clinician Unavailable CLEMENT FIERRO Attending Clinician Unavailable CLEMENT FIERRO Attending Clinician Unavailable Clement Fierro MD Attending Clinician [phone] KRISTIN MARMOLEJO Attending Clinician Unavailable Rena TORRE Attending Clinician Unavailable Rena Haas Attending Clinician [phone] LACEY PRICE Attending Clinician Unavailab Lacey Dunlap DO Attending Clinician [phone] ELDA SCHAFER Attending Clinician Unavailable Doctor Unassigned, [place] Attending Clinician GISELA Nicholas Attending Clinician Unavailable MIK BALTAZAR Attending Clinician Unavailable Gisela Bardales Attending Clinician [phone] Team, [facility] Attending Ryania n Unavailable DEVORA LOBO Attending Clinician UnavailKatty Shields - [place] Attending Clinician Amanda Elda Hernadez Attending Clinician [phone] GOMEZ PEACE Attending Clinician Unavailable Singer SANDOVAL Gomez Attending Clinician [phone] Lab, Ang - Db Attending Clinician Unavailable MERRY ARAGON Attending Clinician Unavailable Esme Miguel LVN Attending Clinician Natalie Joseph, [facility] Lab Main Attending Clinician Unavailezra Pena MD [facility] Attending Clinician [phone] ISA ROGERS Attending Clinician Unavailable Isa Rogers MD Attending Clinician [phone] Mik Ngo Attending Clinician [phone] JEAN [facility] Attending Clinician Unavailable SHAR EVANS Attending Clinician Unavailable Shar Acuña Attending Clinician [phone] GREGG AGUILAR Attending Clinician Unavailable Gregg Ferguson Attending Clinician [phone] Nurse, [facility] Attending Clinician Un available Melanie Tafoya Attending Clinician [phone] Juliann Plunkett RN Attending Clinician Unavaila ble Only, Ang Db Test Attending Clinician UnavailMELANIE Saenz Attending Clinician Unavailable Paloma Santana Attending Clinician [phone] ROMEO CHASE Attending Clinician UnavailABISAI Díaz Admitting Clinician UnavailRena Alas Admitting Clinician Unavailable GOMEZ PEACE Admitting Clinician Unavailable CLEMENT FIERRO Admitting Clinician Unavailable LACEY PRICE Admitting Clinician Unavailab GREGG Angelo Admitting Clinician Unavailable Payers Payer Name Policy Type Policy Number Effective Date Expirati on Date Source [facility] [id number] 2017 00:00:00 Problems Condition Name Condition Details Condition Category Status Onset Date Resolution Date Last Treatment Date Treating Clinician Comments Source Mood disorder Mood disorder Disease Active 06-20 00:00: 00 [facility] Anxiety and depression Anxiety and depression Disease Active 06-20 00:00: 00 [facility] Hemorrhagi c cystitis Hemorrhagi c cystitis Disease Active 06-20 00:00: 00 [facility] Menopausal symptom Menopausal symptom Disease Active 11-17 00:00: 00 [facility] Gastroesop hageal reflux disease Gastroesop hageal reflux disease Disease Active 11-17 00:00: 00 [facility] Other obesity due to excess calories Other obesity due to excess calories Disease Active 2 00:00: 00 [facility] Other obesity due to excess calories Other obesity due to excess calories Disease Active 05-31 00:00: 00 [facility] Family history of diverticul itis of colon Family history of diverticul itis of colon Disease Active 2 00:00: 00 [facility] Family history of diabetes mellitus Family history of diabetes mellitus Disease Active 05-31 00:00: 00 [facility] Family history of coronary arterioscl erosis Family history of coronary arterioscl erosis Disease Active 05-31 00:00: 00 [facility] Diverticul itis Diverticul itis Disease Active 2019-04 0 00:00: 00 [facility] Obesity (BMI 30-39.9) Obesity (BMI 30-39.9) Disease Active 2019-04 0 00:00: 00 [facility] Allergies, Adverse Reactions, Alerts Allergy Name Allergy Type Status Severity Reaction(s) Onset Date Inactive Date Treating Clinician Comments Source NO KNOWN ALLERGIE S Drug Class Active [facility] Social History Social Habit Start Date Stop Date Quantity Comments Source [facility] Not [facility] Alcoholic beverage intake 2025-01-12 00:00:00 2025-01-12 00:00:00 Ex-drinker (finding) [facility] Alcohol intake 2023-07-17 00:00:00 2023-07-17 00:00:00 Ex-drinker (finding) [facility] History of Social function 2023-06-21 00:00:00 2023-06-21 00:00:00 [facility] Exposure to SARS-CoV-2 (event) 2022-07-28 00:00:00 2022-08-07 14:26:00 Not sure [facility] Tobacco use and exposure 2021-11-24 00:00:00 2021-11-24 00:00:00 Smokeless tobacco non-user [facility] Sex assigned at 1970 00:00:00 1970 00:00:00 [facility] Smoking Status Start Date Stop Date Source Never smoked tobacco [facility] Medications Ordered Medication Name Filled Medication Name Start Date Stop Date Current Medication? Ordering Clinician Indication Dosage Frequency Signature (SIG) Comments Components Source ketorolac (TORADOL) 30 mg/mL (1 mL) injection 15 mg 01-12 16:15: 00 01-12 15:57 :00 No 15mg 15 mg, Slow IV Push, ONCE, 1 dose, On Sat01/12/25 at 1115, Routine [facility] nitroglycer in (NITROL) 2 % ointment 0.5 inch 01-12 14:00: 00 01-12 15:07 :00 No .5[in_u s] 0.5 inch, Transderma l (Apply To Skin), Administer over 1 Hours, ONCE, 1 dose, On Sat01/12/25 at 0900, ALBINO [facility] aspirin tablet 325 mg 01-12 14:00: 00 01-12 14:07 :00 No 325mg 325 mg, Oral, ONCE, 1 dose, On Sat01/12/25 at 0900, STAT [facility] aspirin 81 mg chewable tablet 01-12 00:00: 00 02-12 04:59 :00 Yes [id number] 81mg Take 1 tablet by mouth in the morning. [facility] acetaminoph en (TYLENOL) tablet 975 mg 01-12 21:30: 00 01-12 20:26 :00 No 975mg 975 mg, Oral, ONCE, 1 dose, [facility]01/13/24 [facility] 1630[facility] 25 mg tablet 2024-0 9-23 00:00: 00 Yes [id number] 25mg Take 1 tablet by mouth every morning. [facility] loratadine- pseudoephed rine (CLARITIN-D 24 HOUR) 10-240 mg per 24 hr tablet 12-07 00:00: 00 Yes [id number] 1{tbl} Take 1 tablet by mouth in the morning. [facility] benzonatate 100 mg capsule 12-07 00:00: 00 Yes [id number] 100mg Take 1 capsule by mouth 3 (three) times daily as needed for Cough. [facility] montelukast 10 mg tablet 12-07 00:00: 00 Yes [id number] 10mg Take 1 tablet by mouth every 24 (twenty-fo ur) hours as needed (congestio n). [facility] NaCl 0.9% (NS) bolus infusion 500 mL 08-27 01:00: 00 08-27 01:08 :00 No 500mL at 999 mL/hr, 500 mL, IV Infusion, ONCE, 1 dose, On Sat08/27/23 at 1999, STAT [facility] diphenhydrA MINE (BENADRYL) injection 25 mg 08-27 01:00: 00 08-27 00:15 :00 No 25mg 25 mg, Slow IV Push, ONCE, 1 dose, On Sat08/27/23 at 2000, STAT [facility] ketorolac (TORADOL) injection 15 mg 08-27 01:00: 00 08-27 00:15 :00 No 15mg 15 mg, Slow IV Push, ONCE, 1 dose, On Sat08/27/23 at 2000, ALBINO [facility] metoclopram patricia HCl (REGLAN) injection 10 mg 08-27 01:00: 00 08-27 00:15 :00 No 10mg 10 mg, Slow IV Push, ONCE, 1 dose, On Sat08/27/23 at 1999, ALBINO [facility] cephALEXin 500 mg capsule 3- 00:00: 00 Yes [id number] 500mg Take 1 capsule by mouth in the morning and 1 capsule in the evening. [facility] lamoTRIgine 25 mg tablet 3- 00:00: 00 Yes [id number] Take 25mg daily for 2 weeks, then 50mg for 2 weeks [facility] hydrOXYzine 25 mg tablet 2-13 00:00: 00 Yes [id number] 25mg Take 1 tablet by mouth every 6 (six) hours. [facility] iopamidol (ISOVUE 370-500 mL) injection 80 mL 04-30 15:15: 00 04-30 15:15 :00 No [id number] 80mL 80 mL, Intravenou s, ONCE, 1 dose, On Sat04/30/23 at 0915, Routine [facility] ondansetron (ZOFRAN (PF)) injection 4 mg 04-30 14:45: 00 04-30 13:55 :00 No 4mg 4 mg, Slow IV Push, ONCE, 1 dose, On Sat04/30/23 at 0845, Routine [facility] dicyclomine (BENTYL) tablet 20 mg 04-30 14:00: 00 04-30 13:55 :00 No 20mg 20 mg, Oral, ONCE, 1 dose, On Sat04/30/23 at 0800, ALBINO [facility] NaCl 0.9% (NS) bolus infusion 500 mL 04-30 13:45: 00 04-30 15:57 :00 No 500mL at 999 mL/hr, 500 mL, IV Infusion, ONCE, 1 dose, On Sat04/30/23 at 0745, STAT [facility] morpHINE (4 mg/mL) injection 4 mg 04-30 13:40: 14 Yes 4mg 4 mg, Slow IV Push, Q4HPRN, Starting on Sat04/30/23 at 0740, Until Discontinu ed, Routine, Pain (scale 7-10) [facility] dicyclomine 20 mg tablet 04-30 00:00: 00 Yes [id number] 20mg Take 1 tablet by mouth 4 (four) times daily. [facility] phentermine (ADIPEX-P) 37.5 mg capsule 2022-04 07:49: 04 Yes 37.5mg Take 1 capsule by mouth every morning. [facility] ibuprofen 800 mg tablet 2022-04 0 00:00: 00 03-21 00:00 :00 No 800mg Take 1 tablet by mouth every 8 (eight) hours as needed. [facility] dexAMETHaso ne 4 mg tablet 2022-04 00:00: 00 03-21 00:00 :00 No 4mg Take 1 tablet by mouth once daily as needed. [facility] dicyclomine (BENTYL) tablet 20 mg 11-04 01:45: 00 11-04 01:33 :00 No 20mg 20 mg, Oral, ONCE, 1 dose, On 11/03/22 at 204, [facility] ondansetron (ZOFRAN (PF)) injection 4 mg 11-04 01:30: 00 11-04 01:33 :00 No 4mg 4 mg, Slow IV Push, ONCE, 1 dose, On 11/03/22 at 2030, [facility] piperacilli n-tazobacta m (ZOSYN) 3.375 g in NaCl 0.9% (NS) 100 mL MINI-BAG 11-04 01:00: 00 11-04 01:48 :00 No 3.375g 3.375 g, IV Piggyback, ONCE, 1 dose, On 11/03/22 at 2000, Administer over 30 Minutes, 100 mL
Reas on for Anti-Infec tive: Documented Infection< br>Documen janet Infection Site: Abdominal< br>Duratio n of Therapy: Other (see Comments) [facility] iopamidol (ISOVUE 370-500 mL) injection 85 mL 11-03 23:45: 00 11-03 23:45 :00 No [id number] 85mL 85 mL, Intravenou s, ONCE, 1 dose, On 11/03/22 at 1845, Routine [facility] amoxicillin -clavulanat e 875-125 mg per tablet 11-03 00:00: 03-21 00:00 :00 No [id number] 1{tbl} Take 1 tablet by mouth every 12 (twelve) hours. [facility] dicyclomine 20 mg tablet 11-03 00:00: 03-21 00:00 :00 No [id number] 20mg Take 1 tablet by mouth 4 (four) times daily. [facility] ondansetron 4 mg disintegrat ing tablet 11-03 00:00: 00 03-21 00:00 :00 No [id number] 4mg Take 1 tablet by mouth every 4 (four) hours as needed for Nausea and Vomiting (N/V). [facility] traMADoL 50 mg tablet 11-03 00:00: 00 03-21 00:00 :00 No [id number] 50mg Take 1 tablet by mouth every 6 (six) hours as needed for Pain (scale 4-6). Indication s: acute pain [facility] predniSONE 20 mg tablet 08-07 00:00: 00 03-21 00:00 :00 No [id number] 9102 20mg Take 1 tablet by mouth in the morning. [facility] HYDROcodone -acetaminop hen (NORCO) 7.5-325 mg per tablet 08-07 00:00: 00 08-15 04:59 :00 No [id number] 1{tbl} Take 1 tablet by mouth every 8 (eight) hours as needed for Pain for up to 7 days. Indication s: acute pain [facility] albuterol 90 mcg/actuati on inhaler 1-02 00:00: 00 03-21 00:00 :00 No [id number] 2{puff} Inhale 2 Puffs every 4 (four) hours as needed for Wheezing or Shortness of Breath. [facility] hydrOXYzine 25 mg tablet 2021-04 2-13 00:00: 00 03-21 00:00 :00 No [id number] 25mg Take 1 tablet by mouth every 6 (six) hours as needed for Anxiety (insomnia) . may take two tablets if needed [facility] omeprazole 40 mg capsule 2021-04 00:00: 00 03-21 00:00 :00 No [id number] 40mg Take 1 capsule by mouth in the morning and 1 capsule in the evening. [facility] metoclopram patricia HCl (REGLAN) injection 10 mg 12-02 00:15: 00 12-02 00:15 :00 No 10mg 10 mg, Slow IV Push, ONCE, 1 dose, On Sat12/01/21 at 1915, ALBINO [facility] piperacilli n-tazobacta m (ZOSYN) 3.375 g in NaCl 0.9% (NS) 50 mL MINI-BAG 12-02 00:00: 00 12-02 00:55 :00 No 3.375g 3.375 g, IV Piggyback, ONCE, 1 dose, On Sat12/01/21 at 1900, Administer over 30 Minutes, 50 mL
Reas on for Anti-Infec tive: Documented Infection< br>Documen janet Infection Site: Abdominal< br>Duratio n of Therapy: Other (see Comments) [facility] FENTanyl PF (SUBLIMAZE (PF)) injection 75 mcg 12-02 00:00: 00 12-01 23:04 :00 No 75ug 75 mcg, Slow IV Push, ONCE, 1 dose, On Sat12/01/21 at 1900, STAT [facility] acetaminoph en (TYLENOL) tablet 975 mg 12-02 00:00: 00 12-01 22:54 :00 No 975mg 975 mg, Oral, ONCE, 1 dose, On Sat12/01/21 at 1900, ALBINO [facility] iopamidol (ISOVUE 370-500 mL) injection 55 mL 12-01 23:00: 00 12-01 23:00 :00 No [id number] 55mL 55 mL, Intravenou s, ONCE, 1 dose, On Sat12/01/21 at 1800, Routine [facility] ondansetron (ZOFRAN (PF)) injection 4 mg 12-01 21:45: 00 12-01 21:07 :00 No 4mg 4 mg, Slow IV Push, ONCE, 1 dose, On Sat12/01/21 at 1645, ALBINO [facility] NaCl 0.9% (NS) bolus infusion 1,000 mL 12-01 21:45: 00 12-01 23:34 :00 No 1000mL at 999 mL/hr, 1,000 mL, IV Infusion, ONCE, 1 dose, On Sat12/01/21 at 1645, STAT [facility] morpHINE (4 mg/mL) injection 4 mg 12-01 20:45: 00 12-01 21:07 :00 No 4mg 4 mg, Slow IV Push, ONCE, 1 dose, On Sat12/01/21 at 1545, STAT [facility] acetaminoph en-codeine 300-30 mg tablet 12-01 00:00: 00 03-21 00:00 :00 No [id number] 1{tbl} Take 1-2 tablets by mouth every 6 (six) hours as needed for Pain (scale 4-6). Indication s: acute pain [facility] amoxicillin -clavulanat e 875-125 mg per tablet 12-01 00:00: 00 04-23 00:00 :00 No [id number] 1{tbl} Take 1 tablet by mouth every 12 (twelve) hours. [facility] dicyclomine 20 mg tablet 11-28 00:00: 00 11-03 00:00 :00 No [id number] 20mg Take 1 tablet by mouth every 6 (six) hours as needed for Abdominal pain. [facility] ondansetron 4 mg disintegrat ing tablet 11-28 00:00: 00 11-03 00:00 :00 No [id number] 4mg Take 1 tablet by mouth every 8 (eight) hours as needed for Nausea and Vomiting (N/V). [facility] omeprazole 40 mg capsule 11-28 00:00: 00 04-03 00:00 :00 No [id number] 40mg Take 1 capsule by mouth in the morning and 1 capsule in the evening. [facility] ondansetron 4 mg disintegrat ing tablet 11-24 00:00: 00 11-28 00:00 :00 No [id number] 4mg Take 1 tablet by mouth every 8 (eight) hours as needed for Nausea and Vomiting (N/V). [facility] dicyclomine 20 mg tablet 11-08 00:00: 00 11-28 00:00 :00 No [id number] 20mg Take 1 tablet by mouth every 6 (six) hours as needed for Abdominal pain. [facility] Vital Signs Vital Name Observation Time Observation Value Comments S ource Systolic blood pressure 2025-01-12 18:00:00 125 mm[Hg] [facility] Diastolic blood pressure 2025-01-12 18:00:00 70 mm[Hg] [facility] Heart rate 2025-01-12 18:00:00 72 /min [facility] Body temperature 2025-01-12 18:00:00 37 [facility] Respiratory rate 2025-01-12 18:00:00 18 /min [facility] Oxygen saturation in Arterial blood by Pulse oximetry 2025-01-12 18:00:00 100 /min [facility] Body height 2025-01-12 13:43:00 167.6 cm [facility] Body weight 2025-01-12 13:43:00 92.534 kg [facility] BMI 2025-01-12 13:43:00 32.93 kg/m2 [facility] Systolic blood pressure 2024-01-13 22:05:00 157 mm[Hg] [facility] Diastolic blood pressure 2024-01-13 22:05:00 71 mm[Hg] [facility] Heart rate 2024-01-13 22:05:00 61 /min [facility] Respiratory rate 2024-01-13 22:05:00 18 /min [facility] Oxygen saturation in Arterial blood by Pulse oximetry 2024-01-13 22:05:00 97 /min [facility] Body temperature 2024-01-13 19:22:00 36.44 [facility] Body height 2024-01-13 19:22:00 167.6 cm [facility] Body weight 2024-01-13 19:22:00 93.895 kg [facility] BMI 2024-01-13 19:22:00 33.41 kg/m2 [facility] Systolic blood pressure 2023-12-08 14:45:00 136 mm[Hg] [facility] Diastolic blood pressure 2023-12-08 14:45:00 86 mm[Hg] [facility] Heart rate 2023-12-08 14:45:00 77 /min [facility] Body temperature 2023-12-08 14:45:00 36.67 [facility] Respiratory rate 2023-12-08 14:45:00 16 /min [facility] Oxygen saturation in Arterial blood by Pulse oximetry 2023-12-08 14:45:00 100 /min [facility] Body height 2023-12-08 12:41:00 167.6 cm [facility] Body weight 2023-12-08 12:41:00 93.895 kg [facility] BMI 2023-12-08 12:41:00 33.41 kg/m2 [facility] Systolic blood pressure 2023-08-28 01:00:00 138 mm[Hg] [facility] Diastolic blood pressure 2023-08-28 01:00:00 69 mm[Hg] [facility] Heart rate 2023-08-28 01:00:00 65 /min [facility] Respiratory rate 2023-08-28 01:00:00 16 /min [facility] Oxygen saturation in Arterial blood by Pulse oximetry 2023-08-28 01:00:00 97 /min [facility] Body temperature 2023-08-27 23:13:00 36.39 [facility] Body height 2023-08-27 23:13:00 167.6 cm [facility] weight 2023-08-27 23:13:00 97.523 kg [facility] BMI 2023-08-27 23:13:00 34.70 kg/m2 [facility] Systolic blood pressure 2023-07-17 19:48:00 165 mm[Hg] [facility] Diastolic blood pressure 2023-07-17 19:48:00 95 mm[Hg] [facility] Heart rate 2023-07-17 19:48:00 89 /min [facility] Body temperature 2023-07-17 19:48:00 36.56 [facility] Respiratory rate 2023-07-17 19:48:00 19 /min [facility] Body height 2023-07-17 19:48:00 167.6 cm [facility] Body weight 2023-07-17 19:48:00 90.719 kg [facility] BMI 2023-07-17 19:48:00 32.28 kg/m2 [facility] Oxygen saturation in Arterial blood by Pulse oximetry 2023-07-17 19:48:00 99 /min [facility] Systolic blood pressure 2023-06-21 16:57:00 165 mm[Hg] [facility] Diastolic blood pressure 2023-06-21 16:57:00 90 mm[Hg] [facility] Heart rate 2023-06-21 16:56:00 77 /min [facility] Body height 2023-06-21 16:56:00 167.6 cm [facility] Body weight 2023-06-21 16:56:00 92.534 kg [facility] BMI 2023-06-21 16:56:00 32.93 kg/m2 [facility] Oxygen saturation in Arterial blood by Pulse oximetry 2023-06-21 16:56:00 98 /min [facility] Systolic blood pressure 2023-06-04 17:00:00 138 mm[Hg] [facility] Diastolic blood pressure 2023-06-04 17:00:00 75 mm[Hg] [facility] Respiratory rate 2023-06-04 17:00:00 15 /min [facility] Heart rate 2023-06-04 14:41:00 76 /min [facility] Body temperature 2023-06-04 14:41:00 36.83 [facility] Body height 2023-06-04 14:41:00 167.6 cm [facility] Body weight 2023-06-04 14:41:00 92.534 kg [facility] BMI 2023-06-04 14:41:00 32.93 kg/m2 [facility] Oxygen saturation in Arterial blood by Pulse oximetry 2023-06-04 14:41:00 99 /min [facility] Systolic blood pressure 2023-04-30 16:06:00 161 mm[Hg] [facility] Diastolic blood pressure 2023-04-30 16:06:00 81 mm[Hg] [facility] Heart rate 2023-04-30 16:06:00 73 /min [facility] Respiratory rate 2023-04-30 16:06:00 16 /min [facility] Oxygen saturation in Arterial blood by Pulse oximetry 2023-04-30 16:06:00 98 /min [facility] Body temperature 2023-04-30 13:20:00 37.11 [facility] Body height 2023-04-30 13:20:00 167.6 cm [facility] Body weight 2023-04-30 13:20:00 90.719 kg [facility] BMI 2023-04-30 13:20:00 32.28 kg/m2 [facility] Systolic blood pressure 2023-03-21 14:15:00 140 mm[Hg] [facility] Diastolic blood pressure 2023-03-21 14:15:00 82 mm[Hg] [facility] Heart rate 2023-03-21 13:47:00 75 /min [facility] Respiratory rate 2023-03-21 13:47:00 18 /min [facility] Body height 2023-03-21 13:47:00 167.6 cm [facility] Body weight 2023-03-21 13:47:00 92.942 kg [facility] BMI 2023-03-21 13:47:00 33.07 kg/m2 [facility] Oxygen saturation in Arterial blood by Pulse oximetry 2023-03-21 13:47:00 98 /min [facility] Systolic blood pressure 2022-11-04 01:38:00 154 mm[Hg] [facility] Diastolic blood pressure 2022-11-04 01:38:00 85 mm[Hg] [facility] Heart rate 2022-11-04 01:38:00 65 /min [facility] Respiratory rate 2022-11-04 01:38:00 18 /min [facility] Oxygen saturation in Arterial blood by Pulse oximetry 2022-11-04 01:38:00 98 /min [facility] Body temperature 2022-11-03 21:01:00 37.39 [facility] Body height 2022-11-03 21:01:00 167.6 cm [facility] Body weight 2022-11-03 21:01:00 94.802 kg [facility] BMI 2022-11-03 21:01:00 33.73 kg/m2 [facility] Systolic blood pressure 2022-08-07 19:28:00 156 mm[Hg] [facility] Diastolic blood pressure 2022-08-07 19:28:00 105 mm[Hg] [facility] Heart rate 2022-08-07 19:28:00 91 /min [facility] Body temperature 2022-08-07 19:28:00 37.11 [facility] Respiratory rate 2022-08-07 19:28:00 18 /min [facility] Body height 2022-08-07 19:28:00 167.6 cm [facility] Body weight 2022-08-07 19:28:00 97.07 kg [facility] BMI 2022-08-07 19:28:00 34.54 kg/m2 [facility] Oxygen saturation in Arterial blood by Pulse oximetry 2022-08-07 19:28:00 99 /min [facility] Systolic blood pressure 2022-04-23 16:37:00 179 mm[Hg] [facility] Diastolic blood pressure 2022-04-23 16:37:00 82 mm[Hg] [facility] Heart rate 2022-04-23 16:37:00 68 /min [facility] Body temperature 2022-04-23 16:37:00 36.61 [facility] Respiratory rate 2022-04-23 16:37:00 22 /min [facility] Body height 2022-04-23 16:37:00 167.6 cm [facility] Body weight 2022-04-23 16:37:00 97.07 kg [facility] BMI 2022-04-23 16:37:00 34.54 kg/m2 [facility] Oxygen saturation in Arterial blood by Pulse oximetry 2022-04-23 16:37:00 99 /min [facility] Systolic blood pressure 2022-04-03 16:33:00 155 mm[Hg] [facility] Diastolic blood pressure 2022-04-03 16:33:00 82 mm[Hg] [facility] Heart rate 2022-04-03 16:32:00 62 /min [facility] Body temperature 2022-04-03 16:32:00 37 [facility] Body height 2022-04-03 16:32:00 167.6 cm [facility] Body weight 2022-04-03 16:32:00 97.07 kg [facility] BMI 2022-04-03 16:32:00 34.54 kg/m2 [facility] Oxygen saturation in Arterial blood by Pulse oximetry 2022-04-03 16:32:00 96 /min [facility] Body temperature 2021-12-02 00:57:00 36.11 [facility] Systolic blood pressure 2021-12-02 00:31:00 131 mm[Hg] [facility] Diastolic blood pressure 2021-12-02 00:31:00 75 mm[Hg] [facility] Heart rate 2021-12-02 00:31:00 59 /min [facility] Respiratory rate 2021-12-02 00:31:00 10 /min [facility] Oxygen saturation in Arterial blood by Pulse oximetry 2021-12-02 00:31:00 96 /min [facility] Body height 2021-12-01 20:04:00 167.6 cm [facility] Body weight 2021-12-01 20:04:00 93.441 kg [facility] BMI 2021-12-01 20:04:00 33.25 kg/m2 [facility] Systolic blood pressure 2021-11-28 16:04:00 134 mm[Hg] [facility] Diastolic blood pressure 2021-11-28 16:04:00 84 mm[Hg] [facility] Heart rate 2021-11-28 16:04:00 82 /min [facility] Body temperature 2021-11-28 16:04:00 36.94 [facility] Body height 2021-11-28 16:04:00 167.6 cm [facility] Body weight 2021-11-28 16:04:00 92.625 kg [facility] BMI 2021-11-28 16:04:00 32.96 kg/m2 [facility] Oxygen saturation in Arterial blood by Pulse oximetry 2021-11-28 16:04:00 97 /min [facility] Procedures Procedure Date / Time Performed Performing Clinician Source TROPONIN I 2025-01-12 16:36:00 Abisai Reinoso [facility] TROPONIN I 2025-01-12 14:03:00 Abisai Reinoso [facility] COMP. METABOLIC PANEL ([id number]) 2025-01-12 14:03:00 Abisai Reinoso [facility] CBC WITH DIFF 2025-01-12 14:03:00 [facility] 2025-01-12 14:03:00 [facility] PRO-BNP 2025-01-12 14:03:00 Abisai Reinoso [facility] TROPONIN I 2024-01-13 20:20:00 [facility] FREE T4 2024-01-13 20:20:00 [facility] THYROID STIMULATING HORMONE 2024-01-13 20:20:00 Clement Fierro [facility] COMP. METABOLIC PANEL ([id number]) 2024-01-13 20:20:00 Clement Fierro [facility] CBC WITH DIFF 2024-01-13 20:20:00 Clement Fierro [facility] N-TERMINAL PRO-BNP 2024-01-13 20:20:00 Clement Fierro [facility] URINALYSIS 2024-01-13 19:43:00 [facility] RAPID STREP SCREEN FOR GROUP A 2023-12-08 12:52:00 Vadim [facility] INFLUENZA A/B RSV COVID NAAT 2023-12-08 12:52:00 [facility] 2023-08-28 01:17:28 Rena Torre [facility] URINALYSIS 2023-08-28 00:17:00 Rena Torre [facility] MAGNESIUM 2023-08-28 00:07:00 Rena Torre [facility] TROPONIN I 2023-08-28 00:07:00 Rena Torre [facility] COMP. METABOLIC PANEL ([id number]) 2023-08-28 00:07:00 Rena Torre [facility] CBC WITH DIFF 2023-08-28 00:07:00 Rena Torre [facility] N-TERMINAL PRO-BNP 2023-08-28 00:07:00 Rena Torre [facility] URINALYSIS 2023-07-17 19:57:00 [facility] 2023-06-21 17:01:00 Gisela Youssef [facility] XR CHEST 1 VW 2023-06-04 16:34:45 Rena Torre [facility] URINALYSIS 2023-06-04 15:59:00 Rena Torre [facility] MAGNESIUM 2023-06-04 15:44:00 Rena Torre [facility] TROPONIN I 2023-06-04 15:44:00 [facility] THYROID STIMULATING HORMONE 2023-06-04 15:44:00 Rena Torre [facility] COMP. METABOLIC PANEL ([id number]) 2023-06-04 15:44:00 Rena Torre Angel[facility] CBC WITH DIFF 2023-06-04 15:44:00 Rena Torre [facility] N-TERMINAL PRO-BNP 2023-06-04 15:44:[address] [facility] CONSENT/REFUSAL FOR DIAGNOSIS AND TREATMENT 2023-06-04 14:33:34 Doctor Unassigned, [place] [facility] CT ABDOMEN PELVIS W CONTRAST 2023-04-30 14:17:15 Gomez Peace [facility] LIPASE 2023-04-30 13:49:00 Gomez Peace [facility] COMP. METABOLIC PANEL ([id number]) 2023-04-30 13:49:00 Gomez Peace [facility] CBC WITH DIFF 2023-04-30 13:49:00 Gomez Peace [facility] URINALYSIS 2023-04-30 13:49:00 Gomez Peace [facility] CONSENT/REFUSAL FOR DIAGNOSIS AND TREATMENT 2023-04-30 13:21:16 Doctor Unassigned, [place] [facility] CT ABDOMEN PELVIS W CONTRAST 2022-11-03 22:51:45 Clement Fierro [facility] ASSIGNMENT OF BENEFITS 2022-11-03 22:30:24 Docto r Unassigned, [place] [facility] LIPASE 2022-11-03 21:22:00 Clement Fierro [facility] COMP. METABOLIC PANEL ([id number]) 2022-11-03 21:22:00 Clement Fierro [facility] CBC WITH DIFF 2022-11-03 21:22:00 Clement Fierro [facility] URINALYSIS 2022-11-03 21:22:00 [facility] CONSENT/REFUSAL FOR DIAGNOSIS AND TREATMENT 2022-11-03 20:55:18 Doctor Unassigned, [place] [facility] XR ANKLE 3+ VW LEFT 2022-08-07 20:39:32 Jenn Fierro [facility] CONSENT/REFUSAL FOR DIAGNOSIS AND TREATMENT 2022-08-07 19:21:56 Doctor Unassigned, [place] [facility] CONSENT/REFUSAL FOR DIAGNOSIS AND TREATMENT 2022-04-23 16:33:09 Doctor Unassigned, [place] [facility] INSURANCE CORRESPONDENCE 2022-04-05 06:01:00 Doc tor Unassigned, [place] [facility] SCANNED LAB RESULTS 2021-12-26 05:01:00 Doctor Yuridia nassigned, [place] [facility] CT ABDOMEN PELVIS W CONTRAST 2021-12-01 22:52:58 Clement Fierro [facility] URINALYSIS 2021-12-01 20:59:00 Clement [facility] LACTIC ACID WHOLE BLOOD 2021-12-01 20:54:00 Do zohra Fierro [facility] BLOOD CULTURE SCREEN 2021-12-01 20:53:00 Tammie Fierro [facility] COMP. METABOLIC PANEL ([id number]) 2021-12-01 20:53:00 Clement Fierro [facility] CBC WITH DIFF 2021-12-01 20:53:00 Clement Fierro [facility] PROTHROMBIN TIME / INR 2021-12-01 20:53:00 Tanna Fierro [facility] ACTIVATED PARTIAL THRMPLAS HILDA 2021-12-01 20:53:00 Clement Fierro [facility] CONSENT/REFUSAL FOR DIAGNOSIS AND TREATMENT 2021-12-01 19:56:29 Doctor Unassigned, [place] [facility] Encounters Start Date/Time End Date/Time Encounter Type Admission Type Attending [facility] Facility Care Department Encounter ID Source 2021-02-20 18:52:24 Emergency [facility] [id number] [facility] 2021-02-20 07:19:18 Emergency [facility] [id number] [facility] 2021-02-19 21:42:21 Emergency [facility] [id number] [facility] 2021-02-18 23:42:13 Emergency [facility] [id number] [facility] 2025-01-12 08:44:00 2025-01-12 13:05:00 Emergency X ABISAI REINOSO, ABISAI [facility] ERT [id number] [facility] 2020-06-01 00:00:00 2024-06-06 02:57:27 Orders Only Ange Mansfield [facility] 1.2.840.114 350.1.13.10 4.2.7.2.686 [id number] [facility] 2023-03-21 00:00:00 2024-06-06 02:36:47 Orders Only Ximena Gaytan Perla [facility] 1.2.840.114 350.1.13.10 4.2.7.2.686 [id number] [facility] 2024-05-18 08:00:00 2024-05-18 08:00:00 Outpatient ELSY MENON [id number] Deanne Johnson 2024-01-13 14:25:00 2024-01-13 18:17:00 Emergency X CLEMENT FIERRO DONNELL [facility] ERT [id number] [facility] 2024-01-13 14:25:00 2024-01-13 18:17:00 Emergency Clement Fierro [facility] 1.2840.114 350.1.13.10 4.2.7.2.686 [id number] [facility] 2023-12-08 07:43:00 2023-12-08 09:50:00 Emergency X TANNA FIERROCLEMENT WANG [facility] ERT [id number] [facility] 2023-12-08 07:43:00 2023-12-08 09:50:00 Emergency Clement Fierro [facility] 1.2840.114 350.1.13.10 4.2.7.2.686 [id number] [facility] 2023-08-27 18:17:00 2023-08-27 20:38:00 Emergency Elaine Rena TORRE [facility] ERT [id number] [facility] 2023-08-27 18:17:00 2023-08-27 20:38:00 Emergency Rena Torre [facility] 1.2840.114 350.1.13.10 4.2.7.2.686 [id number] [facility] 2023-07-17 14:49:00 2023-07-17 16:08:00 Emergency LACEY LOWERY [facility] ERT [id number] [facility] 2023-07-17 14:49:00 2023-07-17 16:08:00 Emergency Lacey Price [facility] 1.2840.114 350.1.13.10 4.2.7.2.686 [id number] [facility] 2023-07-10 00:00:00 2023-07-10 00:00:00 Letter (Out) [facility] 1.2840.114 350.1.13.10 4.2.7.2.686 [id number] [facility] 2023-06-27 10:30:00 2023-06-27 10:30:00 Outpatient R NU ELDA [facility] [id number] [facility] 2023-06-24 00:00:00 2023-06-24 00:00:00 Patient Secure Msg Doctor Unassigned, [place] [facility] 1.84.114 350.1.13.10 4.2.7.2.686 [id number] [facility] 2023-06-21 10:30:00 2023-06-21 13:58:34 Outpatient R GISELA YOUSSEF [facility] [id number] [facility] 2023-06-21 11:00:00 2023-06-21 11:00:00 Outpatient R MIK BALTAZAR [facility] [id number] [facility] 2023-06-21 10:30:00 2023-06-21 11:00:00 Office [facility] 1.84.114 350.1.13.10 4.2.7.2.686 [id number] [facility] 2023-06-21 00:00:00 2023-06-21 00:00:00 Letter (Out) Mikael G[facility] 1.84.114 350.1.13.10 4.2.7.2.686 [id number] [facility] 2023-06-12 00:00:00 2023-06-12 00:00:00 Telephone Team, [facility] 1.84114 350.1.13.10 4.2.7.2.686 [id number] [facility] 2023-06-06 00:00:00 2023-06-06 00:00:00 Outpatient R DEVORA LOBO [facility] [id number] [facility] 2023-06-06 00:00:00 2023-06-06 00:00:00 Letter (Out) [facility] - Clear [facility] 1..840.114 350.1.13.10 4.2.7.2.686 [id number] [facility] 2023-06-05 00:00:00 2023-06-05 00:00:00 Patient Secure Msg Doctor Unassigned, [place] [facility] 1..840.114 350.1.13.10 4.2.7.2.686 [id number] [facility] 2023-06-04 08:50:00 2023-06-04 11:56:00 Emergency X Rena TORRE [facility] ERT [id number] [facility] 2023-06-04 08:50:00 2023-06-04 11:56:00 Emergency Rena Torre [facility] 1..840.114 350.1.13.10 4.2.7.2.686 [id number] [facility] 2023-05-20 00:00:00 2023-05-20 00:00:00 Telephone Elda Schafer [facility] 1..840.114 350.1.13.10 4.2.7.2.686 [id number] [facility] 2023-04-30 07:35:00 2023-04-30 10:14:00 Emergency X GOMEZ PEACE [facility] ERT [id number] [facility] 2023-04-30 07:35:00 2023-04-30 10:14:00 Emergency Gomez Peace [facility] 1.2840.114 350.1.13.10 4.2.7.2.686 [id number] [facility] 2023-03-22 00:00:00 2023-03-22 00:00:00 Patient Secure Msg Doctor Unassigned, [place] [facility] 1.840.114 350.1.13.10 4.2.7.2.686 [id number] [facility] 2023-03-21 08:00:00 2023-03-21 08:21:19 Manager Intel Visit Lab, Ang - Db Elda Schafer [facility] 1.84.114 350.1.13.10 4.2.7.2.686 [id number] [facility] 2023-03-21 07:30:00 2023-03-21 08:08:41 Outpatient R ELDA SCHAFER [facility] [id number] [facility] 2023-03-21 07:30:00 2023-03-21 08:08:41 Office Visit Elda Schafer [facility] 1.840.114 350.1.13.10 4.2.7.2.686 [id number] [facility] 2022-11-03 16:02:00 2022-11-03 20:52:00 Emergency X CLEMENT FIERRO [facility] ERT [id number] [facility] 2022-11-03 16:02:00 2022-11-03 20:52:00 Emergency Clement Fierro [facility] 1.20.114 350.1.13.10 4.2.7.2.686 [id number] [facility] 2022-08-07 14:29:00 2022-08-07 16:35:00 Emergency X CLEMENT FIERRO [facility] ERT [id number] [facility] 2022-08-07 14:29:00 2022-08-07 16:35:00 Emergency Clement Fierro [facility] 1.2.840.114 350.1.13.10 4.2.7.2.686 [id number] [facility] 2022-04-23 10:39:00 2022-04-23 11:13:00 Emergency X LACEY PRICE [facility] ERT [id number] [facility] 2022-04-23 10:39:00 2022-04-23 11:13:00 Emergency Lacey Price [facility] 1.2.840.114 350.1.13.10 4.2.7.2.686 [id number] [facility] 2022-04-19 14:20:00 2022-04-19 14:20:00 Outpatient Aileen ARAGON [facility] [id number] [facility] 2022-04-05 00:00:00 2022-04-05 00:00:00 Orders Only Doctor Unassigned, [place] [facility] 1.2.840.114 350.1.13.10 4.2.7.2.686 [id number] [facility] 2022-04-04 00:00:00 2022-04-04 00:00:00 Telephone Elda Schafer [facility] 1.2.840.114 350.1.13.10 4.2.7.2.686 [id number] [facility] 2022-04-03 10:40:00 2022-04-03 11:11:32 Outpatient MERRY GREENWOOD [facility] [id number] [facility] 2022-04-03 10:40:00 2022-04-03 11:11:32 Office Visit Margo [facility] 1.20.114 350.1.13.10 4.2.7.2.686 [id number] [facility] 2022-04-03 00:00:00 2022-04-03 00:00:00 Letter (Out) Merry Aragon [facility] 1.840.114 350.1.13.10 4.2.7.2.686 [id number] [facility] 2021-12-26 00:00:00 2021-12-26 00:00:00 Orders Only Doctor Unassigned, [place] [facility] 1.0.114 350.1.13.10 4.2.7.2.686 [id number] [facility] 2021-12-01 15:06:00 2021-12-01 21:16:00 Emergency X CLEMENT FIERRO [facility] [id number] [facility] 2021-12-01 15:06:00 2021-12-01 21:16:00 Emergency Clement Fierro [facility] 1.0.114 350.1.13.10 4.2.7.2.686 [id number] [facility] 2021-12-01 00:00:00 2021-12-01 00:00:00 Patient Secure Msg Elda Schafer [facility] 1.20.114 350.1.13.10 4.2.7.2.686 [id number] [facility] 2021-12-01 00:00:00 2021-12-01 00:00:00 Patient Secure Msg Margo Merry [facility] Y[facility] OFF[facility] BUILD[facility] 1.840.114 350.1.13.10 4.2.7.2.686 [id number] [facility] 2021-12-01 00:00:00 2021-12-01 00:00:00 Telephone Eld[facility] Schafer [facility] 1.2840.114 350.1.13.10 4.2.7.2.686 [id number] [facility] 2021-11-30 00:00:00 2021-11-30 00:00:00 Patient Secure Msg Elda Schafer [facility] 1.20.114 350.1.13.10 4.2.7.2.686 [id number] [facility] 2021-11-30 00:00:00 2021-11-30 00:00:00 Patient Secure Msg Merry Aragon [facility] 1.20.114 350.1.13.10 4.2.7.2.686 [id number] [facility] 2021-11-30 00:00:00 2021-11-30 00:00:00 Patient Secure Msg Esme Miguel [facility] 1.2.114 350.1.13.10 4.2.7.2.686 [id number] [facility] 2021-11-30 00:00:00 2021-11-30 00:00:00 Telephone Elda Schafer [facility] 1.2.114 350.1.13.10 4.2.7.2.686 [id number] [facility] 2021-11-30 00:00:00 2021-11-30 00:00:00 Telephone Merry Aragon [facility] 1.20.114 350.1.13.10 4.2.7.2.686 [id number] [facility] 2021-11-29 08:45:00 2021-11-29 09:00:00 Manager Intel Visit Pob, Adc Lab Main Margo [facility] NAL BUILDING 1.2.840.114 350.1.13.10 4.2.7.2.686 [id number] [facility] 2021-11-29 08:45:00 2021-11-29 08:45:00 Outpatient R MARGO [facility] [id number] [facility] 2021-11-29 00:00:00 2021-11-29 00:00:00 Patient Secure Msg Margo [facility] 1.2.840.114 350.1.13.10 4.2.7.2.686 [id number] [facility] 2021-11-28 12:00:00 2021-11-28 12:15:00 Manager Intel Visit Lab, Ang - Db Margo [facility] OFF[facility]ILD[facility] 1.2.840.114 350.1.13.10 4.2.7.2.686 [id number] [facility] 2021-11-28 11:00:00 2021-11-28 12:04:57 Office Visit Margo [facility] 1.2.840.114 350.1.13.10 4.2.7.2.686 [id number] [facility] 2021-11-28 11:00:00 2021-11-28 12:04:57 Outpatient R [facility]GO [facility] [id number] [facility] 2021-11-28 12:00:00 2021-11-28 12:00:00 Outpatient R MARGO [facility] [id number] [facility] 2021-11-28 00:00:00 2021-11-28 00:00:00 Letter (Out) Merry Aragon [facility] 1.284.114 350.1.13.10 4.2.7.2.686 [id number] [facility] 2021-11-27 00:00:00 2021-11-27 00:00:00 Telephone Elda Schafer [facility] 1.84.114 350.1.13.10 4.2.7.2.686 [id number] [facility] 2021-11-24 12:30:00 2021-11-24 13:13:15 Office Visit Elda Schafer [facility] 1.84114 350.1.13.10 4.2.7.2.686 [id number] [facility] 2021-11-24 12:30:00 2021-11-24 13:13:15 Outpatient R NU ELDA [facility] [id number] [facility] 2021-11-24 12:30:00 2021-11-24 12:30:00 Outpatient R ELDA SCHAFER [facility] [id number] [facility] 2021-11-24 00:00:00 2021-11-24 00:00:00 Letter (Out) Elda Schafer [facility] 1.84.114 350.1.13.10 4.2.7.2.686 [id number] [facility] 2021-11-20 00:00:00 2021-11-20 00:00:00 Telephone Ned Pena [facility] 1.840.114 350.1.13.10 4.2.7.2.686 [id number] [facility] 2021-11-08 11:07:00 2021-11-08 15:00:00 Emergency X LACEY PRICE [facility] ERT [id number] [facility] 2021-11-08 11:07:00 2021-11-08 15:00:00 Emergency Lacey Price [facility] 1.2840.114 350.1.13.10 4.2.7.2.686 [id number] [facility] 2021-11-05 14:12:00 2021-11-05 15:48:00 Emergency X ISA ROGERS [facility] ERT [id number] [facility] 2021-11-05 14:12:00 2021-11-05 15:48:00 Emergency Brennan Rogersbenton Alonso [facility] 1.2840.114 350.1.13.10 4.2.7.2.686 [id number] [facility] 2021-09-19 00:00:00 2021-09-19 00:00:00 Telephone Elda Schafer [facility] 1.2.840.114 350.1.13.10 4.2.7.2.686 [id number] [facility] 2021-08-12 00:00:00 2021-08-12 00:00:00 Mik Linder [facility] 1.2.840.114 350.1.13.10 4.2.7.2.686 [id number] [facility] 2021-08-08 14:30:00 2021-08-08 14:30:00 Outpatient NED PADILLA [facility] [id number] [facility] 2021-07-27 00:00:00 2021-07-27 00:00:00 Refill Mik Baltazar [facility] 1.84.114 350.1.13.10 4.2.7.2.686 [id number] [facility] 2021-07-27 00:00:00 2021-07-27 00:00:00 Refill Doctor Unassigned, [place] [facility] 1..114 350.1.13.10 4.2.7.2.686 [id number] [facility] 2021-07-03 12:30:00 2021-07-03 12:30:00 Outpatient R NED PENA [facility] [id number] [facility] 2021-06-23 00:00:00 2021-06-23 00:00:00 [facility] 1.84.114 350.1.13.10 4.2.7.2.686 [id number] [facility] 2021-06-22 15:55:00 2021-06-22 17:50:00 Emergency X SHAR EVANS [facility] ERT [id number] [facility] 2021-06-22 15:55:00 2021-06-22 17:50:00 Emergency Fredy Evansn R [facility] 1..114 350.1.13.10 4.2.7.2.686 [id number] [facility] [facility] 2021-06-22 00:00:00 2021-06-22 00:00:00 Patient Secure Msg Chelo Baltazarthia [facility] 1.84.114 350.1.13.10 4.2.7.2.686 [id number] [facility] 2021-06-22 00:00:00 2021-06-22 00:00:00 Patient Secure Msg Doctor Unassigned, [place] [facility] 1.2.840.114 350.1.13.10 4.2.7.2.686 [id number] [facility] 2021-06-20 14:30:00 2021-06-20 14:30:00 Outpatient MIK GARCIA [facility] [id number] [facility] 2021-06-20 11:00:00 2021-06-20 11:42:28 Outpatient MIK GARCIA [facility] [id number] [facility] 2021-06-16 22:12:00 2021-06-17 01:13:00 Emergency X GREGG AGUILAR [facility] ERT [id number] [facility] 2021-06-16 22:12:00 2021-06-17 01:13:00 Emergency Gregg Aguilar [facility] 1..840.114 350.1.13.10 4.2.7.2.686 [id number] [facility] 2021-05-06 07:50:00 2021-05-06 10:38:00 Emergency X CLEMENT FIERRO [facility] ERT [id number] [facility] 2021-05-06 07:50:00 2021-05-06 10:38:00 Emergency Clement Fierro [facility] 1..840.114 350.1.13.10 4.2.7.2.686 [id number] [facility] 2021-04-28 14:00:00 2021-04-28 14:00:00 Outpatient ELDA GONZALES [facility] [id number] [facility] 2021-04-17 11:17:00 2021-04-17 12:34:00 Emergency X GOMEZ PEACE [facility] ERT [id number] [facility] 2021-04-17 11:17:00 2021-04-17 12:34:00 Emergency Gomez Peace [facility] 1.2.840.114 350.1.13.10 4.2.7.2.686 [id number] [facility] 2021-03-31 00:00:00 2021-03-31 00:00:00 Patient Secure Msg Doctor Unassigned, [place] [facility] 1.2840.114 350.1.13.10 4.2.7.2.686 [id number] [facility] 2021-03-24 00:00:00 2021-03-24 00:00:00 Patient Secure Msg Doctor Unassigned, [place] [facility] 1.2.840.114 350.1.13.10 4.2.7.2.686 [id number] [facility] 2021-03-24 00:00:00 2021-03-24 00:00:00 Telephone Elda Schafer [facility] 1.2.840.114 350.1.13.10 4.2.7.2.686 [id number] [facility] 2021-03-23 15:35:56 2021-03-23 15:50:56 Manager [employer] Visit Lab, Ang - Db Elda Schafer [facility] 1.2.840.114 350.1.13.10 4.2.7.2.686 [id number] [facility] 2021-03-23 15:00:00 2021-03-23 15:35:22 Outpatient R ELDA SCHAFER [facility] [id number] [facility] 2021-03-23 15:00:00 2021-03-23 15:35:22 Outpatient R ELDA SCHAFER [facility] [id number] [facility] 2021-03-23 14:30:31 2021-03-23 15:35:22 Office Visit Elda Schafer [facility] 1.2.840.114 350.1.13.10 4.2.7.2.686 [id number] [facility] 2021-03-23 14:04:52 2021-03-23 14:24:52 Nurse Visit Nurse, Ang [facility] 1.2840.114 350.1.13.10 4.2.7.2.686 [id number] [facility] 2020-12-21 00:00:00 2020-12-21 00:00:00 Telephone Juliann Plunkett [facility] 1.2840.114 350.1.13.10 4.2.7.2.686 [id number] [facility] 2020-12-20 09:39:06 2020-12-20 09:49:06 Laboratory Only Only, Ang Db Test Hussain [facility] Medical Office Building 1.2840.114 350.1.13.10 4.2.7.2.686 [id number] [facility] 2020-12-20 09:45:00 2020-12-20 09:45:00 Outpatient R MELANIE ARRIAGA [facility] [id number] [facility] 2020-12-18 17:23:00 2020-12-18 22:03:00 Emergency Paloma Falk [facility] 1.2.840.114 350.1.13.10 4.2.7.2.686 [id number] [facility] 2020-06-01 00:00:00 2020-06-01 00:00:00 Outpatient ROMEO SMITH [facility] ACO [id number] [facility] 2020-05-31 11:00:00 2020-05-31 11:00:00 Outpatient ROMEO SMITH [facility] [id number] [facility] 2020-05-28 05:25:00 2020-05-28 05:25:00 Emergency X LACEY PRICE [facility] ERT [id number] [facility] 2020-05-11 00:00:00 2020-05-11 00:00:00 Patient Secure Msg Doctor Unassigned, [place] [facility] 1.2.840.114 350.1.13.10 4.2.7.2.686 [id number] [facility] 2020-05-09 11:18:00 2020-05-09 11:18:00 Emergency X Rena TORRE [facility] ERT [id number] [facility] 2020-05-03 03:30:00 2020-05-03 03:30:00 Emergency X [facility] ERT [id number] [facility] 2020-02-05 15:07:00 2020-02-05 15:07:00 Emergency X [facility] ERT [id number] [facility] Results Test Description Test Time Test Comments Results Result Co mments Source [facility] [id number] 21:24:31 * Test Item Value Reference Range Interpretation Comme nts TSH (test code = 1408415487) 0.24 0.45-4.70 L Biotin has been reported to cause a negative bias, interpret results relative to patient's use of biotin. Lab Interpretation (test code = 55411-1) Abnormal [facility] [id number] 21:05:50* Test Item Value Reference Range Interpretation Comme nts TROPONIN I (test code = 1566735466) 0.006 ng/mL <=0.034 SERG (test code = SERG) Reference (Normal) Range (defined by the 99th percentile reference limit): <= 0.034 ng/mL Note: Cardiac troponin begins to rise 3-4 hours after the onset of ischemia. Repeat in 4-6 hours if the sample was drawn within 3-4 hours of the onset of the symptom and found normal. Diagnosis of myocardial injury is made with acute changes in cTn concentrations with at least one serial sample above the 99th percentile upper reference limit (URL), taken together with the patient's clinical presentation. Biotin has been reported to cause a negative bias, interpret results relative to patient's use of biotin. Lab Interpretation (test code = 68472-4) Normal [facility]MINAL [id number] 21:03:46* Test Item Value Reference Range Interpretation Comme nts NT-proBNP (test code = 18787-2) 73 pg/mL <=125 Lab Interpretation (test cod e = 94276-9) Normal [facility]. METABOLIC PANEL ([id number])2024-01-13 20:54:44* Test Item Value Reference Range Interpretation Comme nts NA (test code = 9202932538) 138 mmol/L 135-145 K (test code = 1384756102) 4.5 mmol/L 3.5-5.0 CL (test code = 8564323005) 103 mmol/L 98-108 CO2 TOTAL (test code = 1782919839) 28 mmol/L 23-31 AGAP (test code = 1376259941) 7 2-16 BUN (test code = 8732662175) 21 mg/dL 7-23 GLUCOSE (test code = 7166156427) 99 mg/dL 70-110 CREATININE (test code = 2160-0) 0.64 mg/dL 0.50-1.04 TOTAL BILI (test code = 4998814764) 0.5 mg/dL 0.1-1.1 CALCIUM (test code = 6718335698) 9.3 mg/dL 8.6-10.6 T PROTEIN (test code = 1370556285) 7.1 g/dL 6.3-8.2 ALBUMIN (test code = 2207809354) 4.3 g/dL 3.5-5.0 ALK PHOS (test code = 4397649947) 101 U/L 34-122 ALTv (test code = 1742-6) 30 U/L 5-35 AST(SGOT) (test code = 4587284420) 33 U/L 13-40 eGFR (test code = 25236-9) 104.5 mL/min/1.73m2 CKD-EPI eGFR (20 21). Assuming creatinine has been stable day-to-day for at least three months, the eGFR indicates Category G1 (>= 90 mL/min/1.73 m2) [facility] WITH [id number] 20:36:39* Test Item Value Reference Range Interpretation Comme nts WBC (test code = 6690-2) 7.11 4.30-11.10 RBC (test code = 789-8) 4.59 3.93-5.25 HGB (test code = 718-7) 14.1 g/dL 11.6-15.0 HCT (test code = 4544-3) 42.5 % 35.7-45.2 MCV (test code = 787-2) 92.6 fL 80.6-95.5 MCH (test code = 785-6) 30.7 pg 25.9-32.8 MCHC (test code = 786-4) 33.2 g/dL 31.6-35.1 RDW-SD (test code = 37958-9) 46.1 fL 39.0-49.9 RDW-CV (test code = 788-0) 13.5 % 12.0-15.5 PLT (test code = 777-3) 310 166-358 MPV (test code = 39394-7) 10.8 fL 9.5-12.9 NRBC/100 WBC (test code = 3710820358) 0.0 0.0-10.0 NRBC x10^3 (test code = 6245200008) See_Comment [Automated me ssage] The system which generated this result transmitted reference range: 10*3/?L. The reference range was not used to interpret this result as normal/abnormal. GRAN MAT (NEUT) % (test code = 770-8) 64.2 % IMM GRAN % (test code = 5693358722) 0.30 % LYMPH % (test code = 736-9) 26.2 % MONO % (test code = 5905-5) 7.0 % EOS % (test code = 713-8) 1.7 % BASO % (test code = 706-2) 0.6 % GRAN MAT x10^3(ANC) (test code = 4006356019) 4.57 10*3/uL 1.88-7.09 IMM GRAN x10^3 (test code = 8812901169) 0.00-0.06 LYMPH x10^3 (test code = 731-0) 1.86 10*3/uL 1.32-3.29 MONO x10^3 (test code = 742-7) 0.50 10*3/uL 0.33-0.92 EOS x10^3 (test code = 711-2) 0.12 10*3/uL 0.03-0.39 BASO x10^3 (test code = 704-7) 0.04 10*3/uL 0.01-0.07 [facility] Urinalysis W Specific [id number] 17:02:00* Test Item Value Reference Range Interpretation Comme nts POCT U SP GRAV (test code = 3255) 1.005 mg/dl 1.005-1.025 POCT PH U (test code = 3254) 7 mg/dl 5-8 POCT U LEUK EST (test code = 3263) trace Negative - Negative A POCT U NIT (test code = 3262) neg Negative - Negative POCT U PROT (test code = 3259) neg Negative - Negative POCT U GLU (test code = 3256) neg Negative - Negative POCT U KETONE (test code = 3258) neg Negative - Negative POCT U UROBILI (test code = 3260) normal 0.2-1 POCT U BILI (test code = 3261) neg Negative - Negative POCT U BLD (test code = 3257) trace Negative - Negative A POCT U COLOR (test code = 3266) light yellow POCT U APPEAR (test code = 3267) hazy Lab Interpretation (test code = 85075-3) Abnormal [facility] Urinalysis W Specific [id number] 17:02:00* Test Item Value Reference Range Interpretation Comme nts POCT U SP GRAV (test code = 3255) 1.005 mg/dl 1.005-1.025 POCT PH U (test code = 3254) 7 mg/dl 5-8 POCT U LEUK EST (test code = 3263) trace Negative - Negative A POCT U NIT (test code = 3262) neg Negative - Negative POCT U PROT (test code = 3259) neg Negative - Negative POCT U GLU (test code = 3256) neg Negative - Negative POCT U KETONE (test code = 3258) neg Negative - Negative POCT U UROBILI (test code = 3260) normal 0.2-1 POCT U BILI (test code = 3261) neg Negative - Negative POCT U BLD (test code = 3257) trace Negative - Negative A POCT U COLOR (test code = 3266) light yellow POCT U APPEAR (test code = 3267) hazy Lab Interpretation (test code = 32282-8) [facility]normal [facility] 1 [id number] 17:06:00EXAM: XR CHEST 1 06/04/2023 10:24 AM HISTORY: 52 years-old Female with chest pain . TECHNIQUE: Portable AP view of the chest. COMPARISON: 05/06/2021 FINDINGS: Lines and tubes: None. Cardiomediastinal: The cardiomediastinal silhouette is unremarkable. Lungs and pleura: The lungs are clear. No focal consolidation,pneumothorax, or pleural effusion is seen. Included osseous structures show no acute abnormality. Degenerative changeinvolving the spine is present.[facility] [id number] 15:43:19CT ABDOMEN PELVIS W CONTRAST HISTORY: ?LLQ abdominal pain COMPARISON: November 03, 2022 TECHNIQUE: CT abdomen and pelvis with intravenous contrast. All CT scans at this facility use dose modulation, iterativereconstruction, and/or weight based dosing when appropriate to reduceradiation dose to as low as reasonably achievable. FINDINGS: The visualized lung bases are clear. The liver contour is smooth.There is no discrete liver mass orintrahepatic biliary dilatation. The spleen, pancreas, and adrenal glandsare unremarkable. 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 There ismarked atrophy of the left upper pole left kidney.There is no hydronephrosis. The urinary bladder is unremarkable. The gallbladder is present. The gastrointestinal tract is unobstructed.There is no intraperitoneal free air or free fluid. The appendix isunremarkable. There are diverticula in the colon without evidence ofdiverticulitis. There is no abdominal aortic aneurysm. There are no destructive bonelesions. Uterus is present. On the sagittal reconstructed images vertebral body height and alignmentare maintained in the lumbar spine. Lordotic curvature is maintained.Intervertebral disc spaces are maintained.[facility]. METABOLIC PANEL ([id number])2022-11-03 22:30:06* Test Item Value Reference Range Interpretation Comme nts NA (test code = 3896466512) 139 mmol/L 135-145 K (test code = 1535085834) 4.4 mmol/L 3.5-5.0 CL (test code = 6750055993) 99 mmol/L 98-108 CO2 TOTAL (test code = 2455721550) 31 mmol/L 23-31 AGAP (test code = 9594269300) 9 2-16 BUN (test code = 9426302688) 11 mg/dL 7-23 GLUCOSE (test code = 8252702403) 97 mg/dL 70-110 CREATININE (test code = 7593702699) 0.59 mg/dL 0.50-1.04 TOTAL BILI (test code = 5608684673) 0.6 mg/dL 0.1-1.1 CALCIUM (test code = 4621893919) 9.3 mg/dL 8.6-10.6 T PROTEIN (test code = 7779579624) 6.8 g/dL 6.3-8.2 ALBUMIN (test code = 9246965428) 4.1 g/dL 3.5-5.0 ALK PHOS (test code = 2574402870) 78 U/L 34-122 ALTv (test code = 1742-6) 31 U/L 5-35 AST(SGOT) (test code = 0944475927) 28 U/L 13-40 eGFR (test code = 6643269850) 106.2 mL/min/1.73m2 SERG (test code = SERG) Association of Glomerular Filtration Rate (GFR) and Staging of Kidney Disease* + + +- +| GFR (mL/min/1.73 m2) ?| With Kidney Damage ?| ?Without Kidney Damage+ ------+ ----+ ------+| ?>90 ?| ?Stage one ?| ? Normal ?+ -+ + -+| ?60-89 ?| ?Stage two ?| ? Decreased GFR ? + + +- +| ?30-59 ?| ?Stage three ?| ? Stage three ? + + +- +| ?15-29 ?| ?Stage four ? | ? Stage four ?+ -+ + -+| ?<15 (or dialysis) ? ?| ?Stage five ? | ? Stage five ?+ -+ + -+ *Each stage assumes the associated GFR level has been in effect for at least three months. ?Stages 1 to 5, with or without kidney disease, indicate chronic kidney disease. Notes: Determination of stages one and two (with eGFR >59mL/min/1.73 m2) requires estimation of kidney damage for at least three months as defined by structural or functional abnormalities of the kidney, manifested by either:Pathological abnormalities or Markers of kidney damage (including abnormalities in the composition of the blood or urine or abnormalities in imaging tests). [facility] 22:29:46* Test Item Value Reference Range Interpretation Comme nts LIPASE (test code = 1418500757) 53 U/L 0-220 Lab Interpretation (test cod e = 00046-3) Normal [facility] WITH [id number] 22:27:45* Test Item Value Reference Range Interpretation Comme nts WBC (test code = 6690-2) 6.93 See_Comment [Automated [employer]] The system which generated this result transmitted reference range: 4.30 - 11.10 10*3/?L. The reference range was not used to interpret this result as normal/abnormal. RBC (test code = 789-8) 4.46 See_Comment [Automated [employer]] The system which generated this result transmitted reference range: 3.93 - 5.25 10*6/?L. The reference range was not used to interpret this result as normal/abnormal. HGB (test code = 718-7) 13.8 g/dL 11.6-15.0 HCT (test code = 4544-3) 40.8 % 35.7-45.2 MCV (test code = 787-2) 91.5 fL 80.6-95.5 MCH (test code = 785-6) 30.9 pg 25.9-32.8 MCHC (test code = 786-4) 33.8 g/dL 31.6-35.1 RDW-SD (test code = 52969-3) 42.3 fL 39.0-49.9 RDW-CV (test code = 788-0) 12.8 % 12.0-15.5 PLT (test code = 777-3) 299 See_Comment [Automated messa ge] The system which generated this result transmitted reference range: 166 - 358 10*3/?L. The reference range was not used to interpret this result as normal/abnormal. MPV (test code = 45930-0) 11.5 fL 9.5-12.9 NRBC/100 WBC (test code = 0472854688) 0.0 See_Comment [Automated me ssage] The system which generated this result transmitted reference range: 0.0 - 10.0 /100 WBCs. The reference range was not used to interpret this result as normal/abnormal. NRBC x10^3 (test code = 1418061930) See_Comment [Automated me ssage] The system which generated this result transmitted reference range: 10*3/?L. The reference range was not used to interpret this result as normal/abnormal. GRAN MAT (NEUT) % (test code = 770-8) 56.6 % IMM GRAN % (test code = 9295475914) 0.30 % LYMPH % (test code = 736-9) 32.0 % MONO % (test code = 5905-5) 7.1 % EOS % (test code = 713-8) 3.3 % BASO % (test code = 706-2) 0.7 % GRAN MAT x10^3(ANC) (test code = 5525547520) 3.92 10*3/uL 1.88-7.09 IMM GRAN x10^3 (test code = 8343238700) 0.00-0.06 LYMPH x10^3 (test code = 731-0) 2.22 10*3/uL 1.32-3.29 MONO x10^3 (test code = 742-7) 0.49 10*3/uL 0.33-0.92 EOS x10^3 (test code = 711-2) 0.23 10*3/uL 0.03-0.39 BASO x10^3 (test code = 704-7) 0.05 10*3/uL 0.01-0.07 [facility] THRMPLAS [id number] 21:52:20* Test Item Value Reference Range Interpretation Comme [facility] APTT Patient (test code = 3173-2) See_Comment [Automated message] The system which generated this result transmitted reference range: 23 - 38 Seconds. The reference range was not used to interpret this result as normal/abnormal. SERG (test code = SERG) The [facility] patient population mean normal value for aPTT is 30 seconds. Lab Interpretation (test code = 58155-5) Normal [facility]OM[facility] / [id number] 21:50:17* Test Item Value Reference Range Interpretation Comme [facility] PROTIME PATIENT (test code = 5964-2) See_Comment [Automated messa ge] The system which generated this result transmitted reference range: 12.0 - 14.7 Seconds. The reference range was not used to interpret this result as normal/abnormal. INR (test code = 6301-6) Normal INR <1.1; Warfarin Therapeutic range 2.0 to 3.0 or 2.5 to 3.5, depending upon the indications. Lab Interpretation (test code = 48544-4) Normal [facility] METABOLIC PANEL (05078)2021-12-01 21:46:18* Test Item Value Reference Range Interpretation Comme [facility] NA (test code = 3559950827) 139 mmol/L 135-145 K (test code = 6112827892) 4.3 mmol/L 3.5-5 CL (test code = 7211960154) 100 mmol/L 98-108 CO2 TOTAL (test code = 1269154090) 30 mmol/L 23-31 AGAP (test code = 2842040717) 2-16 BUN (test code = 8059147822) 7 mg/dL 7-23 GLUCOSE (test code = 5339526666) 80 mg/dL 70-110 CREATININE (test code = 3250656854) 0.67 mg/dL 0.5-1.04 TOTAL BILI (test code = 5528164367) 0.3 mg/dL 0.1-1.1 CALCIUM (test code = 1573192441) 9.3 mg/dL 8.6-10.6 T PROTEIN (test code = 0295258689) 7.6 g/dL 6.3-8.2 ALBUMIN (test code = 9216269740) 4.9 g/dL 3.5-5 ALK PHOS (test code = 1658820536) 106 U/L 34-122 ALTv (test code = 1742-6) 23 U/L 5-35 AST(SGOT) (test code = 6264719025) 25 U/L 13-40 eGFR (test code = 4083989446) mL/min/1.73m2 SERG (test code = SERG) Association of Glomerular Filtration Rate (GFR) and Staging of Kidney Disease* + + +- +| GFR (mL/min/1.73 m2) ?| With Kidney Damage ?| ?Without Kidney Damage+ ------+ ----+ ------+| ?>90 ?| ?Stage one ?| ? Normal ?+ -+ + -+| ?60-89 ?| ?Stage two ?| ? Decreased GFR ? + + +- +| ?30-59 ?| ?Stage three ?| ? Stage three ? + + +- +| ?15-29 ?| ?Stage four ? | ? Stage four ?+ -+ + -+| ?<15 (or dialysis) ? ?| ?Stage five ? | ? Stage five ?+ -+ + -+ *Each stage assumes the associated GFR level has been in effect for at least three months. ?Stages 1 to 5, with or without kidney disease, indicate chronic kidney disease. Notes: Determination of stages one and two (with eGFR >59mL/min/1.73 m2) requires estimation of kidney damage for at least three months as defined by structural or functional abnormalities of the kidney, manifested by either:Pathological abnormalities or Markers of kidney damage (including abnormalities in the composition of the blood or urine or abnormalities in imaging tests). [facility] WITH [id number] 21:38:57* Test Item Value Reference Range Interpretation Comme nts WBC (test code = 6690-2) See_Comment [Automated messa ge] The system which generated this result transmitted reference range: 4.30 - 11.10 10*3/?L. The reference range was not used to interpret this result as normal/abnormal. RBC (test code = 789-8) See_Comment [Automated messa ge] The system which generated this result transmitted reference range: 3.93 - 5.25 10*6/?L. The reference range was not used to interpret this result as normal/abnormal. HGB (test code = 718-7) 15.1 g/dL 11.6-15 H HCT (test code = 4544-3) 45.3 % 35.7-45.2 H MCV (test code = 787-2) 90.2 fL 80.6-95.5 MCH (test code = 785-6) 30.1 pg 25.9-32.8 MCHC (test code = 786-4) 33.3 g/dL 31.6-35.1 RDW-SD (test code = 10062-2) 42.2 fL 39-49.9 RDW-CV (test code = 788-0) 12.8 % 12-15.5 PLT (test code = 777-3) See_Comment [Automated messa ge] The system which generated this result transmitted reference range: 166 - 358 10*3/?L. The reference range was not used to interpret this result as normal/abnormal. MPV (test code = 33241-2) 11.1 fL 9.5-12.9 NRBC/100 WBC (test code = 6334479021) See_Comment [Automated [employer] ssage] The system which generated this result transmitted reference range: 0.0 - 10.0 /100 WBCs. The reference range was not used to interpret this result as normal/abnormal. NRBC x10^3 (test code = 9339538955) See_Comment [Automated messa ge] The system which generated this result transmitted reference range: 10*3/?L. The reference range was not used to interpret this result as normal/abnormal. GRAN MAT (NEUT) % (test code = 770-8) 56.8 % IMM GRAN % (test code = 6391846688) 0.30 % LYMPH % (test code = 736-9) 33.9 % MONO % (test code = 5905-5) 7.5 % EOS % (test code = 713-8) 1.1 % BASO % (test code = 706-2) 0.4 % GRAN MAT x10^3(ANC) (test code = 3444939418) 4.50 10*3/uL 1.88-7.09 IMM GRAN x10^3 (test code = 0721246172) 0-0.06 LYMPH x10^3 (test code = 731-0) 2.68 10*3/uL 1.32-3.29 MONO x10^3 (test code = 742-7) 0.59 10*3/uL 0.33-0.92 EOS x10^3 (test code = 711-2) 0.09 10*3/uL 0.03-0.39 BASO x10^3 (test code = 704-7) 0.03 10*3/uL 0.01-0.07 Lab Interpretation (test code = 04322-9) Abnormal [facility] Notes Date/Time Note Provider Source 2025-01-12 13:03:49 Pt is discharged as per md.vitals checked and reported at the time of discharge.no complaints at the time of discharge. Cain Ruiz RN [facility] 2025-01-12 08:43:00 Chest Pain Note Pt placed immediately into room for c/o chest pain that started 3am. Also reports nausea. Hx of htn. EKG done on arrival to room. Placed on continuous cardiac, blood pressure and oxygen saturation monitoring. Dr. reinoso at bedside. PIV placed, labs drawn. Please see cardiac assessment for details. Will continue to monitor. Cain Ruiz RN [facility] 2025-01-12 08:42:25 Pt states she has had chest pain since 3am and worsened when she walked into work this morning. 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 Patient states it does feel worse when she takes a deep breath. Patient has been under more stress and anxiety. Patient did not take any for pain. Patient denies any recent travels or surgeries. Has a history of hypertension and denies any history of [place]. Past Medical History/Immunizations: Past Medical History: Diagnosis Date C. difficile colitis Diverticulitis Diverticulosis Esophageal reflux Tetanus received in last 5 years: Yes Allergies: No Known Allergies Past Social History: Tobacco Use Never smoked or used smokeless tobacco. Vaping Use Never used Alcohol Use Not Currently. Drug Use Not Currently. Past Surgical History: Past Surgical History: Procedure Laterality Date CYST EXCISION on ovary Review of Systems: Review of Systems Constitutional: Negative for fever. Respiratory: Positive for chest tightness and shortness of breath. Cardiovascular: Positive for chest pain. Negative for leg swelling. Gastrointestinal: Negative for vomiting. Psychiatric/Behavioral: The patient is nervous/anxious. Physical Exam: Physical Exam ED Triage Vitals [01/12/25 0843] Weight 92.5 kg (204 lb) Actual or estimated Height 1.676 m (5' 6") BP 137/89 Pulse (!) 16 Resp 16 Temp 36.8 ?C (98.2 ?F) Temp source Oral SpO2 99 % Measured on Room air Physical Exam Vitals and nursing note reviewed. Constitutional: Appearance: Normal appearance. HENT: Head: Normocephalic. Cardiovascular: Rate and Rhythm: Normal rate. Comments: States having tenderness when stethoscope placed over L anterior chest Pulmonary: Effort: Pulmonary effort is normal. No respiratory distress. Neurological: General: No focal deficit present. Mental Status: She is alert and oriented to person, place, and time. Psychiatric: Comments: anxious Radiology: XR Chest 1 vw Preliminary Result EXAM: XR CHEST 1 VW COMPARISON: Chest radiograph from 08/27/2023 HISTORY: cp TECHNIQUE: Frontal view of the chest. FINDINGS: Lungs: The lungs are clear and well-expanded. No pleural abnormalities. Heart/Mediastinum: The cardiomediastinal silhouette is normal in size accounting for technique. Bones: No osseous lesions are detected. IMPRESSION No radiographic evidence of acute cardiopulmonary process. Preliminary Report Dictated by Resident: David Braun Lab Results: Lab Results TROPONIN I - Normal Result Value Ref Range TROPONIN I 0.002 <=0.034 ng/mL D-DIMER - Normal D-DIMER 0.23 <0.50 ?g/mL (FEU) N-TERMINAL PRO-BNP - Normal NT-proBNP 80 <=125 pg/mL TROPONIN I - Normal TROPONIN I 0.002 <=0.034 ng/mL CBC WITH DIFF WBC 5.62 4.30 - 11.10 10*3/?L RBC 4.64 3.93 - 5.25 10*6/?L HGB 13.8 11.6 - 15.0 g/dL HCT 42.1 35.7 - 45.2 % MCV 90.7 80.6 - 95.5 fL MCH 29.7 25.9 - 32.8 pg MCHC 32.8 31.6 - 35.1 g/dL RDW-SD 42.5 39.0 - 49.9 fL RDW-CV 12.9 12.0 - 15.5 % PLT 288 166 - 358 10*3/?L MPV 11.0 9.5 - 12.9 fL NRBC/100 WBC 0.0 0.0 - 10.0 /100 WBCs NRBC x10 3 <0.01 10*3/?L GRAN MAT (NEUT) % 57.3 % IMM GRAN % 0.50 % LYMPH % 30.4 % MONO % 8.2 % EOS % 2.7 % BASO % 0.9 % GRAN MAT x10 3 (ANC) 3.22 1.88 - 7.09 10*3/uL IMM GRAN x10 3 0.03 0.00 - 0.06 10*3/uL LYMPH x10 3 1.71 1.32 - 3.29 10*3/uL MONO x10 3 0.46 0.33 - 0.92 10*3/uL EOS x10 3 0.15 0.03 - 0.39 10*3/uL BASO x10 3 0.05 0.01 - 0.07 10*3/uL COMP. METABOLIC PANEL (28235) NA 138 135 - 145 mmol/L K 4.4 3.5 - 5.0 mmol/L CL 103 98 - 108 mmol/L CO2 TOTAL 28 23 - 31 mmol/L AGAP 7 2 - 16 BUN 19 7 - 23 mg/dL GLUCOSE 89 70 - 110 mg/dL CREATININE 0.63 0.50 - 1.04 mg/dL TOTAL BILI 0.4 0.1 - 1.1 mg/dL CALCIUM 9.4 8.6 - 10.6 mg/dL T PROTEIN 7.8 6.3 - 8.2 g/dL ALBUMIN 4.4 3.5 - 5.0 g/dL ALK PHOS 88 34 - 122 U/L ALTv 27 5 - 35 U/L AST(SGOT) 26 13 - 40 U/L eGFR 104.3 mL/min/1.73m2 EKG: If EKG completed, see Procedure Note. Orders and Treatments: Orders Placed This Encounter Procedures XR Chest 1 vw Cbc with Diff Comp. Metabolic Panel (96347) Troponin I D-Dimer N-Terminal Pro-Bnp Troponin I Orders Placed This Encounter Medications aspirin tablet 325 mg nitroglycerin (NITROL) 2 % ointment 0.5 inch ketorolac (TORADOL) 30 mg/mL (1 mL) injection 15 mg First Provider Eval: ED Events Date/Time Event User Comments 01/12/2580 Medical Screening Begins ABISAI REINOSO MD -- 01/12/25 0837 First Provider Evaluation ABISAI REINOSO MD -- ED COURSE ED Course as of 01/12/25 1255 Tue Jan 12, 2025 1255 Troponin x 2 wnl. PT instructed to f/u with pcp and cardiology. Pt comfortable with plan. [PB] 1029 Offered to admit pt for obs but pt wants to repeat trop. Will order dose of toradol. Pt made aware of results. [PB] 0855 Will obtain labs, EKG, cxr. PT to receive asa, ntg. [PB] ED Course User Index [PB] Abisai Reinoso MD Diagnosis/Impression as of 01/12/25 1255 Chest pain, unspecified type Results Procedures: Procedures MDM: Assessment & Plan Medical Decision Making 54 yo F presents with chest pain Amount and/or Complexity of Data Reviewed Labs: ordered. Details: Trop wnl x 2 Radiology: ordered. Details: Hospital Encounter on 01/12/25 -XR Chest 1 vw: Narrative EXAM: XR CHEST 1 VW COMPARISON: Chest radiograph from 08/27/2023 HISTORY: cp TECHNIQUE: Frontal view of the chest. FINDINGS: Lungs: The lungs are clear and well-expanded. No pleural abnormalities. Heart/Mediastinum: The cardiomediastinal silhouette is normal in size accounting for technique. Bones: No osseous lesions are detected. Impression No radiographic evidence of acute cardiopulmonary process. Preliminary Report Dictated by Resident: David Braun ECG/medicine tests: ordered and independent interpretation performed. Details: NSR, no stemi, qtc 418 HR 84 Risk OTC drugs. Prescription drug management. Risk Details: PT instructed to f/u with pcp and cardiology. Flowsheet Documentation: Scoring Tools: No data recorded Disposition/Condition: ED Disposition None Discharge Medications: Patient's Medications START taking these medications No medications on file CONTINUE taking these medications which have NOT CHANGED BENZONATATE 100 MG CAPSULE Take 1 capsule by mouth 3 (three) times daily as needed for Cough. CEPHALEXIN 500 MG CAPSULE Take 1 capsule by mouth in the morning and 1 capsule in the evening. DICYCLOMINE 20 MG TABLET Take 1 tablet by mouth 4 (four) times daily. HYDROCHLOROTHIAZIDE 25 MG TABLET Take 1 tablet by mouth every morning. HYDROXYZINE 25 MG TABLET Take 1 tablet by mouth every 6 (six) hours. LAMOTRIGINE 25 MG TABLET Take 25mg daily for 2 weeks, then 50mg for 2 weeks LORATADINE-PSEUDOEPHEDRINE (CLARITIN-D 24 HOUR) 10-240 MG PER 24 HR TABLET Take 1 tablet by mouth in the morning. MONTELUKAST 10 MG TABLET Take 1 tablet by mouth every 24 (twenty-four) hours as needed (congestion). PHENTERMINE (ADIPEX-P) 37.5 MG CAPSULE Take 1 capsule by mouth every morning. START taking Modified Medications as Prescribed No medications on file STOP taking these medications No medications on file Follow-up: Follow-up Information None Electronically signed by: Abisai Reinoso MD 01/12/25 1255 [facility] 2024-01-13 18:10:43 Patient discharged to home. Patient given printed and verbal discharge instructions regarding diagnosis. Instructed to follow up with PCP. Patient verbalized understanding of instructions. Patient awake, alert, oriented, respirations even and unlabored, skin warm and dry, color appropriate for race. No adverse reaction to meds given in ER noted upon discharge. PIV removed. Discussed medications. Advised to seek medical attention for new/prolonged/worsening of symptoms, patient ambulated from unit with steady gait in no apparent distress. [facility] 2024-01-13 14:21:29 Patient reports feeling tired and fatigued and drained of energy for past two days. States she has had HTN off and on but does not take medication for it currently. Went to [facility] [employer] [facility] where she works and they checked it and got 180/85. Sheldon Lundy RN [facility] 2023-12-08 09:49:43 Written/verbal d/c instructions, out of er no distress DANT Federica Fenton RN [facility] 2023-12-08 07:40:27 Patient states: "It started yesterday evening. I'm having a cough and sore throat. My boss has covid" [facility] 2023-08-27 20:38:20 PT D/C home. GCS15, VS stable. Given D/C paperwork. Pt ambulatory at time of discharge. Pt educated on med usage, follow up care, s/s worsening condition, need for hydration. Pt verbalized understanding. Pt ambulated from ED in NAD Tammy Hernández RN [facility] 2023-08-27 18:12:24 Pt states "my blood pressure has been high the last couple days, it was 170/90 today while at work". Does not have history of HTN. Reports increased stress levels at work and personal life. Shar Salas RN [facility] 2023-07-17 15:56:00 Pt given printed and verbal discharge instructions regarding dysuria, URTI, encouraged hydration. Pt verbalized understanding of instructions, pt awake alert oriented, resp reg unlabored, skin w/d, color appropriate for race, moves all ext well,pt encouraged to follow up with pcp. Advised to seek medical attention for new/prolonged/worsening of symptoms. Awake, alert oriented, resp reg unlabored, skin w/d, pt leaving amb with steady gait, in no apparent distress. Indira Oshea RN [facility] 2023-07-17 14:45:46 Pt to ED CO dysuria, back pain, cough, nausea, and body aches starting Saturday. Pt given urine cup. Lisette Brody RN [facility] 2023-07-17 14:41:00 [facility] Emergency Department Note Patient Name: Shyann Zayas Date of : 1970 53 year old female Treatment [facility] Primary Care Physician: Elda Shcafer Patient Escorted by: Self [9] Mode of Arrival: Personal means [1] EMS Treatment Prior to ED Arrival: Travel and Exposure Screening: Symptoms Does patient have any of these symptoms?: (not recorded) Exposure Screening Has patient had contact with someone with a communicable disease in the last month?: (not recorded) Diseases exposed to:: (not recorded) Is Patient ?: (not recorded) Exposure Date: (not recorded) Chief Complaint: Chief Complaint Patient presents with DYSURIA Cough History of Present Illness: The patient presents from home for evaluation for painful urination that started about 1 hour prior to arrival. No abdominal pain. No nausea or vomiting. No fevers or chills. She also has cough and congestion that she has had since Saturday. Today is Saturday. No sick contacts. She does not smoke. No history of diabetes. She is using [id number] cough and cold medications for her viral syndrome. Here for evaluation. Past Medical History/Immunizations: Past Medical History: Diagnosis Date C. difficile colitis Diverticulitis Diverticulosis Esophageal reflux Allergies: No Known Allergies Past Social History: Tobacco Use Never smoked or used smokeless tobacco. Vaping Use Never used Alcohol Use Not Currently. Drug Use Not Currently. Past Surgical History: Past Surgical History: Procedure Laterality Date CYST EXCISION on ovary Review of Systems: Review of Systems Constitutional: Negative for chills and fever. HENT: Positive for congestion. Respiratory: Positive for cough. Cardiovascular: Negative for chest pain. Gastrointestinal: Positive for nausea. Negative for abdominal pain and vomiting. Genitourinary: Positive for dysuria. Musculoskeletal: Negative for arthralgias, neck pain and neck stiffness. Skin: Negative for wound. Neurological: Negative for dizziness. Psychiatric/Behavioral: Negative for agitation. Endocrine: Negative for goiter. Physical Exam: ED Triage Vitals [07/17/23 1448] Weight 90.7 kg (200 lb) Actual or estimated Estimated by patient/family report Height 1.676 m (5' 6") BP (!) 165/95 Pulse 89 Resp 19 Temp 36.6 ?C (97.8 ?F) Temp source Oral SpO2 99 % Measured on Room air Physical Exam Vitals and nursing note reviewed. Constitutional: Appearance: Normal appearance. She is obese. HENT: Head: Normocephalic and atraumatic. Right Ear: Tympanic membrane and ear canal normal. Left Ear: Tympanic membrane and ear canal normal. Nose: Congestion present. Mouth/Throat: Mouth: Mucous membranes are moist. Pharynx: Oropharynx is clear. No oropharyngeal exudate or posterior oropharyngeal erythema. Cardiovascular: Rate and Rhythm: Normal rate and regular rhythm. Pulmonary: Effort: Pulmonary effort is normal. No respiratory distress. Breath sounds: No stridor. No wheezing or rhonchi. Abdominal: General: There is no distension. Tenderness: There is no abdominal tenderness. Musculoskeletal: General: Normal range of motion. Cervical back: Normal range of motion and neck supple. Skin: General: Skin is warm and dry. Neurological: General: No focal deficit present. Mental Status: She is alert and oriented to person, place, and time. Radiology: No orders to display Lab Results: Lab Results URINALYSIS Result Value Ref Range APPEARANCE Clear Clear COLOR Yellow Yellow PH 5.0 4.8 - 8.0 SP GRAVITY 1.017 1.003 - 1.030 GLU U QUAL Normal Normal BLOOD Negative Negative KETONES Negative Negative PROTEIN Negative Negative UROBILIN Normal Normal BILIRUBIN Negative Negative NITRITE Negative Negative LEUK HERON Negative Negative RBC/HPF <1 0 - 3 HPF WBC/HPF <1 0 - 5 HPF BACTERIA Negative Negative SQ EPITH <1 HPF EKG: If EKG completed, see Procedure Note. Orders and Treatments: Orders Placed This Encounter Procedures URINALYSIS No orders of the defined types were placed in this encounter. First Provider Eval: ED Events Date/Time Event User Comments 07/17/23 1445 Medical Screening Begins LACEY PRICE DO -- 07/17/23 144 First Provider Evaluation LACEY PRICE DO -- ED COURSE Diagnosis/Impression as of 07/17/23 1548 Dysuria Upper respiratory tract infection, unspecified type Procedures: Procedures MDM: Medical Decision Making The patient presents from home for evaluation for painful urination started about 1 hour prior to arrival. No abdominal pain. No fevers. No nausea or vomiting. She also complains of cough and congestion that she has had since Saturday. Today is Saturday. No sick contacts. She does not smoke. She has been using [id number] cough and cold medications to help with her symptoms. Vital signs are stable in the ER. Her lungs are clear bilaterally. Her pharynx is pink and without exudates or erythema. Her tympanic membranes are pearly browne. No concern for bacterial infection of the upper airway. Offered the patient screening for COVID as well as influenza and she does decline. Will check a urinalysis to evaluate possible UTI. Anticipate discharge home later. 1548 -the patient is doing well here in the ER. Her urinalysis is clean and shows no signs of infection. She remained stable here in the ER and is okay for discharge home with PCP follow-up. Problems Addressed: Dysuria: acute illness or injury Upper respiratory tract infection, unspecified type: acute illness or injury Amount and/or Complexity of Data Reviewed Labs: ordered. Decision-making details documented in ED Course. Risk OTC drugs. Flowsheet Documentation: Scoring Tools: No data recorded Disposition/Condition: ED Disposition ED Disposition Disch - Home Condition Stable Comment -- Discharge Medications: Patient's Medications START taking these medications No medications on file CONTINUE taking these medications which have NOT CHANGED CEPHALEXIN 500 MG CAPSULE Take 1 capsule by mouth in the morning and 1 capsule in the evening. DICYCLOMINE 20 MG TABLET Take 1 tablet by mouth 4 (four) times daily. HYDROXYZINE 25 MG TABLET Take 1 tablet by mouth every 6 (six) hours. LAMOTRIGINE 25 MG TABLET Take 25mg daily for 2 weeks, then 50mg for 2 weeks PHENTERMINE (ADIPEX-P) 37.5 MG CAPSULE Take 1 capsule by mouth every morning. START taking Modified Medications as Prescribed No medications on file STOP taking these medications No medications on file Follow-up: Electronically signed by: Lacey Price DO 07/17/231547 [facility] 2023-06-04 11:55:55 Patient discharged home. Follow up with pcp in 2 days. Feels better at this time. Verbalized understanding. Signed paper work. [facility] 2023-06-04 08:41:07 Patient to ED for chest wall pressure that started 3 days ago. Went to PCP today and bp was elevated and reports chest burning and was sent to ED for eval. She thinks she is just anxious which is causing the burning sensation. EURIZER Talon Villarreal RN [facility] 2023-05-21 15:55:28 Shyann Zayas is a 52 year old female Pt called following up on request. Please advise. Call back number: [phone] Vo [facility] 2023-05-21 14:13:03 Shyann Zayas is a 52 year old female Pt following up on need for referral to keep appt for tomorrow in [facility]. Please call pt back at [phone] to inform if request was approved or denied. Aragon [facility] 2023-05-20 11:08:34 Please review and sign referral if appropriate. Recent Visits Date Type Provider Dept 03/21/23 Office Visit Elda Schafer PA [facility] 04/03/22 Office Visit Merry Aragon MD [facility] 11/28/21 Office Visit Merry Aragon MD [facility] Showing recent visits within past 540 days with a meds authorizing provider and meeting all other requirements Future Appointments No visits were found meeting these conditions. Showing future appointments within next 150 days with a meds authorizing provider and meeting all other requirements [facility] 2023-05-20 09:43:39 Patient is requesting a referral to: [facility] Dept: Gastroenterology Reason for referral: Follow Up Acid Reflux- K21.9 Duration of problem: 4 years Internal / External referral: External Name of provider / location patient requesting: Address: [address] [place] [address] Dr. Devora Lobo Phone number: [phone] Fax number: [phone] Appt already scheduled?: yes If yes, date of appt.: 05/22/2023 [facility]ett [facility] 2023-05-20 08:19:50 Nadja llanos/ [facility] is calling in requesting referral to Gastro forf/u on acid reflex . Pt has appt Wed. Thank you! ph. [phone] Fx: [phone] [facility]ila [facility] 2023-04-30 10:13:04 Pt given printed and verbal discharge instructions regarding LLQ abdominal pain, encouraged hydration. Prescriptions provided. 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 Advised to seek medical attention for new/prolonged/worsening of symptoms. Symptoms addressed. No adverse reaction to meds given in ER noted upon discharge. PIV d'cd, dressing to site, catheter intact. Pt leaving amb with steady gait, in no apparent distress. Gruber RN [facility] 2023-04-30 07:20:00 Patient came in with complaints of left sided abdominal pain and nausea that started today morning. States she has history of diverticulitis. Oshea RN [facility]
[2025-02-02 07:49] LABS: Absolute Lymphocytes (CBC) 1.5 K/uL (0.7-4.9); Hematocrit 40.1 % (36.0-45.0); Hemoglobin 13.7 g/dL (12.0-15.0); MCH 30.7 pg (27.0-35.0); MCHC 34.2 g/dL (32.0-36.0); MCV 89.9 fL (80-100); MPV 9.3 fL (7.6-11.3); Nucleated RBC Absolute Count 0.0 (0-0); Nucleated Red Blood Cells % 0.1 % (0-0); RBC Red Blood Cell Count 4.46 M/uL (3.86-4.86); White Blood Count 6.00 thou/uL (4.3-10.9)
[2025-02-02] MEDS ORDERED: CEFTRIAXONE 1000 MG/VIAL ONE (08:05)
[2025-02-02] MEDS ORDERED: NA CHLORIDE 0.9% 50 ML ONE (08:05)
[2025-02-02] MEDS ORDERED: PHENAZOPYRIDINE 100MG TAB PO ONE (08:05)
[2025-02-02 08:06] LABS: PT Prothrombin Time 12.2 SECONDS (10-13.0); PTT, Activated Partial Thromb 30.2 SECONDS (27.2-37.4); Protime INR 1.08
[2025-02-02 08:09] LABS: ALT/SGPT 36.0 U/L (13-56); AST/SGOT 14.0 U/L (15-37); Albumin 3.5 g/dL (3.4-5.0); Albumin/Globulin Ratio 0.9 (1.1-1.8); Alkaline Phosphatase 94.0 U/L (45-117); Anion Gap 7.3 mEq/L (5.0-15.0); BUN Blood Urea Nitrogen 11.0 mg/dL (7-18); Globulin 3.7 g/dL (2.3-3.5); Glucose Level 95.0 mg/dL (74-106); NT PRO-BNP 152.0 pg/mL (<125); Potassium 4.3 mEq/L (3.5-5.1); Troponin High Sensitivity 5.1 pg/mL (<58.9)
[2025-02-02 08:21] LABS: Sqamous Epithelial <5 /HPF (None Seen); Urine Crystals Unidentified Few /HPF (None Seen); Urine Culture Reflex Order NOT NEEDED; Urine Microscopic Reflex YN ORDER UMIC; Urine Yeast (Budding) Trace /HPF (None Seen)
--- NOTE | 2025-02-02 09:24 | RAD REPORT ---
EXAMINATION: CT ABDOMEN AND PELVIS WITH CONTRAST CLINICAL INDICATION: left CVA pain, UTI TECHNIQUE: CT abdomen and pelvis was performed, after the administration of IV contrast, as per [facility] protocol. Axial, sagittal and coronal reconstructions were obtained. One or more of the following dose reduction techniques were used: Automated exposure control, adjustment of the mA and k V according to patient size, and iterative reconstruction. Unless otherwise specified, incidental findings do not require dedicated imaging follow-up. COMPARISON: No prior exam. FINDINGS: LOWER CHEST: The visualized lung bases are clear. LIVER: Normal in size and contour. No focal lesion. Grossly unremarkable gallbladder. SPLEEN: Normal size. No focal lesion. PANCREAS: No mass, ductal dilation, or jaylan-pancreatic fluid. ADRENALS: Normal; no mass. KIDNEYS: Normal size and contour. No hydronephrosis. Duplicated collecting systems bilaterally, with atrophic left upper moiety. GASTROINTESTINAL TRACT: No evidence of free air, significant intra-abdominal free fluid, bowel obstru ction or abscess. Moderate diverticulosis coli of the sigmoid colon. APPENDIX: Normal appendix. LYMPH NODES: No lymphadenopathy. MUSCULOSKELETAL: No acute or suspicious osseous abnormality. ADDITIONAL FINDINGS: None. IMPRESSION: No acute abnormalities seen in the abdomen or pelvis.
--- NOTE | 2025-02-02 09:47 | ER ---
Nurse's Notes [facility] Name: Shyann Alicia Age: 54 yrs Sex: Female : 1970 Arrival Date: 02/02/2025 Time: 07:04 Bed 18 Private MD: Diagnosis: UTI/ Urinary tract infection, site not specified;Low back pain Presentation: 02/02 07:18 Chief complaint: Patient states: UTI symptome since , has been on Augmentin , iw started having right mid back pain and lower back pain, still has pain with urination and has been using Monistat for possible yeast infection. Coronavirus screen: At this time, the client does not indicate any symptoms associated with coronavirus-19. Ebola Screen: No symptoms or risks identified at this time. Initial Sepsis Screen: Does the patient meet any 2 criteria? No. Patient's initial sepsis screen is negative. Does the patient have a suspected source of infection? No. Patient's initial sepsis screen is negative. Risk Assessment: Do you want to hurt yourself or someone else? Patient reports no desire to harm self or others. 07:18 Method Of Arrival: Ambulatory iw 07:18 Acuity: LONG 3 iw 07:21 Onset of symptoms was January 28, 2025. iw Historical: - Allergies: 07:20 No Known Allergies; iw - Home Meds: 07:20 semaglutide subcutaneous every week [Active]; iw - PMHx: 07:20 Diverticulitis; GERD; Hernia; Ovarian cyst; Ulcers; iw - Immunization history:: Adult Immunizations. - Infectious Disease History:: Denies. - Family history:: not pertinent. - Hospitalizations: : No recent hospitalization is reported. - Social history:: Smoking status: Patient denies any tobacco usage or history of. Screenin:47 [facility] ED Fall Risk Assessment (Adult) History of falling in the last 3 months, ap3 including since admission No falls in past 3 months (0 pts) Confusion or Disorientation No (0 pts) Intoxicated or Sedated No (0 pts) Impaired Gait No (0 pts) Mobility Assist Device Used No (0 pt) Altered Elimination No (0 pt) Score/Fall Risk Level 0 - 2 = Low Risk Oriented to surroundings, Maintained a safe environment, Educated pt \T\ family on fall prevention, incl call for assistance when getting out of bed, Assessed \T\ reinforced patient's understanding of fall precautions, Hourly rounding (assess needs \T\ fall precautionary measures) done, Used ambulatory aids as needed (educated on \T\ assisted with). Abuse screen: Denies threats or abuse. Nutritional screening: No deficits noted. Tuberculosis screening: No symptoms or risk factors identified. Assessment: 10:45 General: Appears in no apparent distress. Behavior is calm, cooperative, appropriate ap3 for age. Pain: Complains of pain in left mid back. Neuro: Level of Consciousness is awake, alert, obeys commands, Oriented to person, place, time, situation, Moves all extremities. Gait is steady. Cardiovascular: Patient's skin is warm and dry. Respiratory: Airway is patent Respiratory effort is even, unlabored, Respiratory pattern is regular, symmetrical. Vital Signs: 07:18 BP 157 / 75; Pulse 77; Resp 16; Temp 98.3; Pulse Ox 100% on R/A; iw 09:13 BP 142 / 73; Pulse 74; Pulse Ox 100% on R/A; ap3 10:49 BP 143 / 75; Pulse 77; Resp 16; Pulse Ox 98% on R/A; ap3 ED Course: 07:08 Patient arrived in ED. gm2 07:11 Travis Pandya MD is Attending Physician. rn 07:14 Inessa Colunga RN is Primary Nurse. ap3 07:20 Triage completed. iw 07:20 Arm band placed on. iw 07:48 Initial lab(s) drawn, by md, sent to lab. Inserted saline lock: 22 gauge in left iw antecubital area, using aseptic technique. Blood collected. Flushed with 10 mL NS. 08:25 EKG done, by ED staff, reviewed by Travis Pandya MD. ap3 08:57 CT Abd/Pelvis - IV Contrast Only In Process Unspecified. EDMS 10:47 No provider procedures requiring assistance completed. IV discontinued, intact, ap3 bleeding controlled, No redness/swelling at site. Pressure dressing applied. 10:48 Patient has correct armband on for positive identification. Bed in low position. Call ap3 light in reach. Provided Education on: discharge instructions. Administered Medications: 08:33 Drug: Phenazopyridine PO 200 mg PO once Route: PO; ap3 10:46 Follow up: Response: No adverse reaction ap3 08:34 Drug: Rocephin IV 1 grams IV at calculated rate once; Given slow IV push per pharmacy ap3 instructions Route: IV; Rate: calculated rate; Site: left antecubital; 10:46 Follow up: IV Status: Completed infusion; IV Intake: 50ml ap3 Medication: 10:48 VIS not applicable for this client. ap3 Intake: 10:46 IV: 50ml; Total: 50ml. ap3 Outcome: :46 Discharge ordered by . rn 10:47 Discharged to home ambulatory, ap3 10:47 Condition: good 10:47 Discharge instructions given to patient, Instructed on discharge instructions, follow up and referral plans. Demonstrated understanding of instructions, follow-up care, 10:49 Patient left the ED. ap3 Signatures: Dispatcher [employer] EDMS Sofya Hayden RN Travis Coyne MD MD rn Prokisch, Amanda, RN RN ap3 Laura Sanches gm2 Corrections: (The following items were deleted from the chart) 07:22 07:18 Pulse 77bpm; Resp 16bpm; Pulse Ox 100% RA; Temp 98.3F; iw
--- NOTE | 2025-02-02 09:47 | EDPHYS ---
Physician Documentation [facility] Name: Shyann Alicia Age: 54 yrs Sex: Female : 1970 Arrival Date: 02/02/2025 Time: 07:04 Bed 18 Private MD: ED Physician Travis Pandya HPI: 02/02 07:30 This 54 yrs old Female presents to ER via Ambulatory with complaints of Pain With rn Urination, Low Back Pain. 07:30 The patient presents with pain that is acute. The symptoms are located in the low back, rn left mid back. Patient reports started on antibiotics 3 days ago for UTI. Was treated based on urinalysis. Denies fever or chills. No vomiting. Reports now having left lower back pain and left flank pain. No history of kidney stones. No trauma. No abdominal pain. Historical: - Allergies: 07:20 No Known Allergies; iw - Home Meds: 07:20 semaglutide subcutaneous every week [Active]; iw - PMHx: 07:20 Diverticulitis; GERD; Hernia; Ovarian cyst; Ulcers; iw - Immunization history:: Adult Immunizations. - Infectious Disease History:: Denies. - Family history:: not pertinent. - Hospitalizations: : No recent hospitalization is reported. - Social history:: Smoking status: Patient denies any tobacco usage or history of. ROS: 07:30 Constitutional: Negative for fever, chills, and weight loss, Cardiovascular: Negative rn for chest pain, palpitations, and edema, Respiratory: Negative for shortness of breath, cough, wheezing, and pleuritic chest pain, Abdomen/GI: Negative for abdominal pain, nausea, vomiting, diarrhea, and constipation, Back: Positive for left back pain : Positive for dysuria, no hematuria Exam: 07:30 Constitutional: This is a well developed, well nourished patient who is awake, alert, rn and in no acute distress. Cardiovascular: Regular rate and rhythm. No pulse deficits. Abdomen/GI: Soft, nontender Back: Mild left CVA tenderness. 08:36 ECG was reviewed by the Attending Physician. rn Vital Signs: 07:18 BP 157 / 75; Pulse 77; Resp 16; Temp 98.3; Pulse Ox 100% on R/A; iw 09:13 BP 142 / 73; Pulse 74; Pulse Ox 100% on R/A; ap3 10:49 BP 143 / 75; Pulse 77; Resp 16; Pulse Ox 98% on R/A; ap3 MDM: 07:11 Medical Screening Exam initiated rn 09:44 Differential diagnosis: UTI, Pyelonephritis, ascending urinary tract infection, kidney rn stone. Data reviewed: vital signs, nurses notes, lab test result(s), radiologic studies, CT scan, and as a result, I will discharge patient. Consideration of Admission/Observation Escalation of care including admission/observation considered. Escalation and admission considered given initial story sounded like a ascending urinary tract infection but labs unremarkable and CT without pyelonephritis. Patient feels better so we will discharge home instead.. Independent interpretation of the following test(s) in the Emergency Department CT Scan: My interpretation is CT abdomen pelvis negative for kidney stone per my interpretation. gut puller: rate is 74 beats/min, Rhythm is normal sinus rhythm, regular, with no ectopy, Interpretation: normal rate, normal rhythm. Care significantly affected by the following chronic conditions: Hypertension. Counseling: I had a detailed discussion with the patient and/or guardian regarding the historical points, exam findings, and any diagnostic results supporting the discharge/admit diagnosis, lab results, radiology results, the need for outpatient follow up, to return to the emergency department if symptoms worsen or persist or if there are any questions or concerns that arise at home. Response to treatment: the patient's symptoms have markedly improved after treatment, and as a result, I will discharge patient. Special discussion: I discussed with the patient/guardian in detail that at this point there is no indication for admission to the hospital. It is understood, however, that if the symptoms persist or worsen the patient needs to return immediately for re-evaluation. Based on the history and exam findings, there is no indication for further emergent testing or inpatient evaluation. I discussed with the patient/guardian the need to see the primary care provider for further evaluation of the symptoms. 02/02 07:11 Order name: UA Rfx Ash Cult if indicated; Complete Time: 08:32 rn 02/02 07:21 Order name: BNP; Complete Time: 08:32 rn 02/02 07:21 Order name: Blood Culture Adult (2) rn 02/02 07:21 Order name: CBC with Diff; Complete Time: 08:32 rn 02/02 07:21 Order name: CMP; Complete Time: 08:32 rn 02/02 07:21 Order name: Lactate w/ 2H reflex if indic.; Complete Time: 08:32 rn 02/02 07:21 Order name: Protime (+inr); Complete Time: 08:32 rn 02/02 07:21 Order name: Ptt, Activated; Complete Time: 08:32 rn 02/02 07:21 Order name: Troponin HS; Complete Time: 08:32 rn 02/02 07:21 Order name: CT Abd/Pelvis - IV Contrast Only; Complete Time: 09:29 rn 02/02 07:21 Order name: Accucheck; Complete Time: 08:25 rn 02/02 07:21 Order name: Cardiac monitoring; Complete Time: 08:25 rn 02/02 07:21 Order name: EKG - Nurse/Tech; Complete Time: 08:25 rn 02/02 07:21 Order name: IV Saline Lock - Large Bore; Complete Time: 07:48 rn 02/02 07:21 Order name: Labs collected and sent; Complete Time: 07:48 rn 02/02 07:21 Order name: O2 Per Protocol; Complete Time: 07:49 rn 02/02 07:21 Order name: O2 Sat Monitoring; Complete Time: 07:49 rn 02/02 07:21 Order name: Vital Signs; Complete Time: 07:48 rn EC:36 Rate is 72 beats/min. Rhythm is regular. QRS [place] is Normal. [place] interval is normal. QRS rn interval is normal. QT interval is normal. No Q waves. T waves are Normal. No ST changes noted. Clinical impression: Normal ECG. Interpreted by me. Reviewed by me. Administered Medications: 08:33 Drug: Phenazopyridine PO 200 mg PO once Route: PO; ap3 10:46 Follow up: Response: No adverse reaction ap3 08:34 Drug: Rocephin IV 1 grams IV at calculated rate once; Given slow IV push per pharmacy ap3 instructions Route: IV; Rate: calculated rate; Site: left antecubital; 10:46 Follow up: IV Status: Completed infusion; IV Intake: 50ml ap3 Disposition Summary: 02/02/25 09:46 Discharge Ordered Notes: Location: Home rn Problem: new rn Symptoms: have improved rn Condition: Stable rn Diagnosis - UTI/ Urinary tract infection, site not specified rn - Low back pain rn Followup: rn - With: Private Physician - When: As needed - Reason: Recheck today's complaints, Re-evaluation by your physician Discharge Instructions: - Discharge Summary Sheet rn - Acute Back Pain, Adult rn - Urinary Tract Infection, Adult rn Forms: - Medication Reconciliation Form rn - Antibiotic care nurse rn - Prescription Opioid Use rn - Patient Portal Instructions rn - Leadership Thank You Letter rn Signatures: Dispatcher [employer] Sofya Adams RN RN iw Nieto, Roman, MD MD rn Prokisch, Amanda, RN RN ap3 Corrections: (The following items were deleted from the chart) 07:11 07:11 UA Rfx Ash Cult if indicated+U.LAB.BRZ ordered. EDMS EDMS 07:22 07:22 PROBNP+C.LAB.BRZ ordered. EDMS EDMS 07:22 07:22 BLOOD CULTURE*+BA.LAB.BRZ ordered. EDMS EDMS 07:22 07:22 CBC+H.LAB.BRZ ordered. EDMS EDMS 07:22 07:22 COMPREHENSIVE METABOLIC PANEL+C.LAB.BRZ ordered. EDMS EDMS 07:22 07:22 LACTATE+C.LAB.BRZ ordered. EDMS EDMS 07:22 07:22 PROTIME (+INR)+COAG.LAB.BRZ ordered. EDMS EDMS 07:22 07:22 PTT, ACTIVATED+COAG.LAB.BRZ ordered. EDMS EDMS 07:22 07:22 Troponin High Sensitivity+C.LAB.BRZ ordered. EDMS EDMS 07:22 07:22 Abdomen Pelvis W Con+CT.RAD.BRZ ordered. EDMS EDMS
[2025-02-02 18:53] VITALS: TEMP 98.3
[2025-02-02 18:57] VITALS: BP 143/75; O2SAT 98
== END 2025-02-02 10:49 | disposition home or self-care (01) ==
LOC: ER 07:04
DX: N39.0 Urinary tract infection, site not specified (principal); M54.50 Low back pain, unspecified
CPT/HCPCS: 96365; 93005; 87040 ×2; 85025; 81001; 36415; 85610; 83605; 85730; 84484; 80053; 83880; 74177; 99284; 96366; Q9967; J0696